=== PATIENT | female | born 1940 | race Caucasian/White ===

== ENCOUNTER → 2023-04-10 15:48 | Outpatient (REF) | payer MEDICARE, OTHER, SELFPAY | LOC: DHCBS MAIN 15:48 | PROVIDERS: ATTENDING PHYSICIAN Internal Medicine Cardiovascular Disease; FAMILY PHYSICIAN Family Medicine | DX: I35.0 Nonrheumatic aortic (valve) stenosis (principal) | CPT/HCPCS: 93306 ==

== ENCOUNTER → 2023-04-24 09:23 | Outpatient (REF) | payer MEDICARE, OTHER, SELFPAY ==
[2023-04-24 10:34] LABS: % Basophils 0.6 % (0-2); % Eosinophils 2.4 % (0-6); % Immature Granulocytes 0.5 % (0-0.5); % Lymphocytes 23.8 % (20.5-51.1); % Monocytes 9.9 % (1.7-9.3); % Neutrophils 62.8 % (42.2-75.2); Absolute Eosinophils 0.2 10^3/uL (0-0.7); Absolute Lymphocytes 1.5 10^3/uL (1.2-3.4); Absolute Monocytes 0.6 10^3/uL (0.1-0.6); Absolute Neutrophils 3.9 10^3/uL (1.4-6.5); Hematocrit 40.4 % (37.0-47.0); Hemoglobin 12.9 g/dL (12.0-16.0); Mean Corp Hgb Conc. 31.9 g/dL (33.0-37.0); Mean Corpuscular Volume 84.5 fL (81.0-99.0); Mean Platelet Volume 9.8 fL (7.4-10.4); Nucleated Red Blood Cells % 0 %; Platelet Count 194 10^3/uL (130-400); Red Blood Cell Count 4.78 10^6/uL (4.20-5.40); Red Cell Dist. Width 14.9 % (11.5-14.5); White Blood Cell Count 6.3 10^3/uL (4.8-10.8)
[2023-04-24 11:00] LABS: Protein/creatinine Ratio 3.3; Urine Protein 194 mg/dl
[2023-04-24 11:14] LABS: ALT (SGPT) 18 U/L (0-35); AST (SGOT) 26 U/L (14-36); Albumin 3.3 g/dl (3.5-5.0); Alkaline Phosphatase 105 U/L (38-126); Blood Urea Nitrogen 42 mg/dl (7-17); Calcium 9.6 mg/dl (8.4-10.2); Carbon Dioxide 23 mmol/L (22-30); Chloride 104 mmol/L (98-107); Glucose 122 mg/dl (70-99); Magnesium 2.3 mg/dl (1.6-2.3); Potassium 3.9 mmol/L (3.5-5.1); Sodium 137 mmol/L (135-145); Total Bilirubin 0.6 mg/dl (0.2-1.3); Total Protein 6.2 g/dl (6.3-8.2); eGFR 20.96
[2023-04-26 07:43] LABS: Tacrolimus (Prograft - FK506) 3.4 ng/mL
== END ==
LOC: REG 09:23
PROVIDERS: ATTENDING PHYSICIAN Transplant Surgery; FAMILY PHYSICIAN Family Medicine
DX: Z94.0 Kidney transplant status (principal); Z79.60 Long term (current) use of unspecified immunomodulators and immunosuppressants; Z29.89 Encounter for other specified prophylactic measures
CPT/HCPCS: 36415; 80053; 80197; 82570; 83735; 84156; 85025

== ENCOUNTER 2023-05-02 13:01 | Outpatient (RCR) | payer MEDICARE, OTHER, SELFPAY | END 2023-05-02 23:59 | disposition home or self-care (01) | LOC: RPT 13:01 | PROVIDERS: ATTENDING PHYSICIAN Family Medicine | DX: R26.89 Other abnormalities of gait and mobility (principal); Z73.6 Limitation of activities due to disability | CPT/HCPCS: 97110; 97112; 97162 ==

== ENCOUNTER → 2023-05-07 10:00 | Outpatient (REF) | payer MEDICARE, OTHER, SELFPAY ==
[2023-05-07 11:55] LABS: Blood Urea Nitrogen 26 mg/dl (7-17); Calcium 9.5 mg/dl (8.4-10.2); Carbon Dioxide 26 mmol/L (22-30); Chloride 107 mmol/L (98-107); Glucose 100 mg/dl (70-99); Potassium 4.6 mmol/L (3.5-5.1); Sodium 137 mmol/L (135-145); eGFR 28.13
== END ==
LOC: REG 10:00
PROVIDERS: ATTENDING PHYSICIAN Specialist
DX: R79.89 Other specified abnormal findings of blood chemistry (principal)
CPT/HCPCS: 36415; 80048

== ENCOUNTER 2023-05-21 12:52 | Outpatient (RCR) | payer MEDICARE, OTHER, SELFPAY | END 2023-05-21 23:59 | disposition home or self-care (01) | LOC: RPT 12:52 | PROVIDERS: ATTENDING PHYSICIAN Family Medicine | DX: R26.89 Other abnormalities of gait and mobility (principal); Z73.6 Limitation of activities due to disability | CPT/HCPCS: 97110; 97112 ==

== ENCOUNTER → 2023-05-30 09:49 | Outpatient (REF) | payer MEDICARE, OTHER, SELFPAY ==
[2023-05-30 12:16] LABS: Glycohemoglobin (HgbA1c) 7.1 % (4.0-5.6)
[2023-05-30 12:18] LABS: TSH 4.09 uIU/ml (0.47-4.68)
[2023-05-30 13:54] LABS: ALT (SGPT) 21 U/L (0-35); AST (SGOT) 25 U/L (14-36); Albumin 3.8 g/dl (3.5-5.0); Alkaline Phosphatase 143 U/L (38-126); Blood Urea Nitrogen 32 mg/dl (7-17); Calcium 10.2 mg/dl (8.4-10.2); Carbon Dioxide 21 mmol/L (22-30); Chloride 104 mmol/L (98-107); Glucose 118 mg/dl (70-99); HDL Cholesterol 55 mg/dl; LDL Cholesterol, Calculated 52 mg/dl; Potassium 4.1 mmol/L (3.5-5.1); Sodium 136 mmol/L (135-145); Total Bilirubin 0.4 mg/dl (0.2-1.3); Total Cholesterol 131 mg/dl (50-199); Total Protein 6.8 g/dl (6.3-8.2); Triglyceride 123 mg/dl (10-149); Very Low Density Lipoprotein 24 mg/dl (0-30); eGFR 30.13
== END ==
LOC: REG 09:49
PROVIDERS: ATTENDING PHYSICIAN Internal Medicine Endocrinology, Diabetes & Metabolism; FAMILY PHYSICIAN Family Medicine; REFERRING PHYSICIAN Specialist
DX: I10 Essential (primary) hypertension (principal); E78.2 Mixed hyperlipidemia; R80.9 Proteinuria, unspecified; D50.9 Iron deficiency anemia, unspecified; R79.89 Other specified abnormal findings of blood chemistry; E11.9 Type 2 diabetes mellitus without complications; Z79.4 Long term (current) use of insulin
CPT/HCPCS: 36415; 80053; 80061; 83036; 84443

== ENCOUNTER → 2023-07-03 09:25 | Outpatient (REF) | payer MEDICARE, OTHER, SELFPAY ==
[2023-07-03 10:16] LABS: % Basophils 0.4 % (0-2); % Eosinophils 0.7 % (0-6); % Immature Granulocytes 0.5 % (0-0.5); % Lymphocytes 23.7 % (20.5-51.1); % Monocytes 10.7 % (1.7-9.3); Absolute Eosinophils 0.1 10^3/uL (0-0.7); Absolute Monocytes 0.9 10^3/uL (0.1-0.6); Absolute Neutrophils 5.3 10^3/uL (1.4-6.5); Hematocrit 39.8 % (37.0-47.0); Hemoglobin 12.8 g/dL (12.0-16.0); Mean Corp Hgb Conc. 32.2 g/dL (33.0-37.0); Mean Corpuscular Hgb 27.2 pg (27.0-31.0); Mean Corpuscular Volume 84.7 fL (81.0-99.0); Mean Platelet Volume 9.9 fL (7.4-10.4); Nucleated Red Blood Cells % 0 %; Platelet Count 200 10^3/uL (130-400); Red Cell Dist. Width 14.8 % (11.5-14.5); White Blood Cell Count 8.2 10^3/uL (4.8-10.8)
[2023-07-03 10:34] LABS: ALT (SGPT) 15 U/L (0-35); AST (SGOT) 22 U/L (14-36); Albumin 3.7 g/dl (3.5-5.0); Alkaline Phosphatase 123 U/L (38-126); Blood Urea Nitrogen 30 mg/dl (7-17); Calcium 10.3 mg/dl (8.4-10.2); Carbon Dioxide 24 mmol/L (22-30); Chloride 106 mmol/L (98-107); Glucose 90 mg/dl (70-99); Magnesium 2.1 mg/dl (1.6-2.3); Potassium 4.3 mmol/L (3.5-5.1); Sodium 137 mmol/L (135-145); Total Bilirubin 0.6 mg/dl (0.2-1.3); Total Protein 6.6 g/dl (6.3-8.2); eGFR 26.36
[2023-07-03 10:47] LABS: Protein/creatinine Ratio 2.9; Urine Protein 179 mg/dl
[2023-07-05 02:16] LABS: Tacrolimus (Prograft - FK506) 3.9 ng/mL
== END ==
LOC: REG 09:25
PROVIDERS: ATTENDING PHYSICIAN Transplant Surgery; FAMILY PHYSICIAN Family Medicine
DX: Z94.0 Kidney transplant status (principal); Z79.60 Long term (current) use of unspecified immunomodulators and immunosuppressants; Z29.89 Encounter for other specified prophylactic measures
CPT/HCPCS: 36415; 80053; 80197; 82570; 83735; 84156; 85025

== ENCOUNTER → 2023-07-05 07:46 | Outpatient (REF) | payer MEDICARE, OTHER, SELFPAY | LOC: DHCBC/DCA 07:46 | PROVIDERS: ATTENDING PHYSICIAN Internal Medicine Cardiovascular Disease; FAMILY PHYSICIAN Family Medicine | DX: R06.02 Shortness of breath (principal); Z94.0 Kidney transplant status | CPT/HCPCS: 78452; 93017; A9500; J2785 ==

== ENCOUNTER → 2024-01-07 10:51 | Outpatient (REF) | payer MEDICARE, OTHER, SELFPAY | LOC: DHVS 10:51 | PROVIDERS: ATTENDING PHYSICIAN Surgery Vascular Surgery; FAMILY PHYSICIAN Family Medicine | DX: I73.9 Peripheral vascular disease, unspecified (principal) | CPT/HCPCS: 93922; 93925 ==

== ENCOUNTER → 2024-02-20 14:00 | Outpatient (REF) | payer MEDICARE, OTHER, SELFPAY ==
[2024-02-20 14:46] LABS: Urine Albumin 1+ (Neg - Trace); Urine Bilirubin Negative (Negative); Urine Character Very Cloudy (Clear); Urine Color Yellow; Urine Glucose 3+ (Negative); Urine Ketone Negative (Negative); Urine Leukocyte 2+ (Negative); Urine Nitrite Positive (Negative); Urine Occult Blood 3+ (Negative); Urine Specific Gravity 1.015 (<1.030); Urine Urobilinogen Negative (Neg - 1+)
[2024-02-20 15:23] LABS: Urine Urothelial Cell 0-2 /LPF (FEW)
[2024-02-20 15:24] LABS: Urine Bacteria Many (Negative); Urine White Cell >100 /HPF (0-5)
== END ==
LOC: REG 14:00
PROVIDERS: ATTENDING PHYSICIAN Family Medicine
DX: N30.90 Cystitis, unspecified without hematuria (principal)
CPT/HCPCS: 81003; 81015; 87086; 87088; 87186

== ENCOUNTER → 2024-03-18 16:17 | Outpatient (REF) | payer MEDICARE, OTHER, SELFPAY ==
[2024-03-18 18:07] LABS: Urine Albumin 2+ (Neg - Trace); Urine Bilirubin Negative (Negative); Urine Character Very Cloudy (Clear); Urine Color Yellow; Urine Glucose 3+ (Negative); Urine Ketone Negative (Negative); Urine Leukocyte 2+ (Negative); Urine Nitrite Positive (Negative); Urine Occult Blood 3+ (Negative); Urine Specific Gravity 1.015 (<1.030); Urine Urobilinogen Negative (Neg - 1+)
[2024-03-18 18:16] LABS: Urine Bacteria Few (Negative); Urine Red Blood Cell 0-2 /HPF (0-2); Urine Squamous Cell 0-2 /LPF (Few); Urine White Cell 50-60 /HPF (0-5)
== END ==
LOC: RAD 16:17
PROVIDERS: ATTENDING PHYSICIAN Family Medicine
DX: N30.90 Cystitis, unspecified without hematuria (principal)
CPT/HCPCS: 81003; 81015; 87077; 87086; 87186

== ENCOUNTER → 2024-04-15 11:01 | Outpatient (REF) | payer MEDICARE, OTHER, SELFPAY ==
[2024-04-15 12:33] LABS: ALT (SGPT) 15 U/L (0-35); AST (SGOT) 31 U/L (14-36); Albumin 3.6 g/dl (3.5-5.0); Alkaline Phosphatase 119 U/L (38-126); Blood Urea Nitrogen 29 mg/dl (7-17); Calcium 9.9 mg/dl (8.4-10.2); Carbon Dioxide 24 mmol/L (22-30); Chloride 106 mmol/L (98-107); Glucose 114 mg/dl (70-99); Potassium 4.9 mmol/L (3.5-5.1); Sodium 138 mmol/L (135-145); Total Bilirubin 0.6 mg/dl (0.2-1.3); Total Cholesterol 131 mg/dl (50-199); Total Protein 6.5 g/dl (6.3-8.2); Triglyceride 122 mg/dl (10-149); Very Low Density Lipoprotein 24 mg/dl (0-30); eGFR 29.94
[2024-04-15 12:46] LABS: Glycohemoglobin (HgbA1c) 6.8 % (4.0-5.6)
[2024-04-15 15:33] LABS: HDL Cholesterol 47 mg/dl; LDL Cholesterol, Calculated 60 mg/dl
== END ==
LOC: REG 11:01
PROVIDERS: ATTENDING PHYSICIAN Internal Medicine Endocrinology, Diabetes & Metabolism; FAMILY PHYSICIAN Family Medicine
DX: E11.9 Type 2 diabetes mellitus without complications (principal); Z79.4 Long term (current) use of insulin; E78.5 Hyperlipidemia, unspecified
CPT/HCPCS: 36415; 80053; 80061; 83036

== ENCOUNTER → 2024-05-06 14:07 | Outpatient (REF) | payer MEDICARE, OTHER, SELFPAY | LOC: RAD 14:07 | PROVIDERS: ATTENDING PHYSICIAN Family Medicine | DX: M54.6 Pain in thoracic spine (principal); R05.1 Acute cough | CPT/HCPCS: 71046; 72072 ==

== ENCOUNTER → 2024-06-02 15:02 | Outpatient (REF) | payer MEDICARE, OTHER, SELFPAY | LOC: RAD 15:02 | PROVIDERS: ATTENDING PHYSICIAN Family Medicine; FAMILY PHYSICIAN Family Medicine | DX: M54.6 Pain in thoracic spine (principal) | CPT/HCPCS: 71046; 72072 ==

== ENCOUNTER → 2024-07-05 10:47 | Outpatient (REF) | payer MEDICARE, OTHER, SELFPAY ==
[2024-07-05 12:04] LABS: % Basophils 0.6 % (0-2); % Eosinophils 0.2 % (0-6); % Immature Granulocytes 1.6 % (0-0.5); % Lymphocytes 13.9 % (20.5-51.1); % Monocytes 8.3 % (1.7-9.3); % Neutrophils 75.4 % (42.2-75.2); Absolute Basophils 0.1 10^3/uL (0-0.2); Absolute Immature Granulocytes 0.1 10^3/uL (0-0.05); Absolute Lymphocytes 1.2 10^3/uL (1.2-3.4); Absolute Monocytes 0.7 10^3/uL (0.1-0.6); Absolute Neutrophils 6.3 10^3/uL (1.4-6.5); Hematocrit 33.5 % (37.0-47.0); Hemoglobin 10.9 g/dL (12.0-16.0); Mean Corp Hgb Conc. 32.5 g/dL (33.0-37.0); Mean Corpuscular Volume 83.1 fL (81.0-99.0); Mean Platelet Volume 9.9 fL (7.4-10.4); Nucleated Red Blood Cells % 0 %; Platelet Count 210 10^3/uL (130-400); Red Blood Cell Count 4.03 10^6/uL (4.20-5.40); Red Cell Dist. Width 15.8 % (11.5-14.5); White Blood Cell Count 8.3 10^3/uL (4.8-10.8)
[2024-07-05 14:03] LABS: Erythrocyte Sed Rate 47 mm/hour (0-20)
[2024-07-07 13:32] LABS: Rheumatoid Agglutinin Less Than 10 IU (<10 IU)
[2024-07-07 17:53] LABS: ANA, IgG Reflex to HEp-2 None Detected (None Detected)
== END ==
LOC: REG 10:47
PROVIDERS: ATTENDING PHYSICIAN Family Medicine
DX: M25.50 Pain in unspecified joint (principal); I10 Essential (primary) hypertension
CPT/HCPCS: 36415; 85025; 85652; 86038; 86140; 86430

== ENCOUNTER → 2024-07-08 09:33 | Outpatient (REF) | payer MEDICARE, OTHER, SELFPAY | LOC: HWRAD 09:33 | PROVIDERS: ATTENDING PHYSICIAN Psychiatry & Neurology Neurology; FAMILY PHYSICIAN Family Medicine | DX: M54.14 Radiculopathy, thoracic region (principal); M54.16 Radiculopathy, lumbar region; M54.12 Radiculopathy, cervical region | CPT/HCPCS: 72125; 72128; 72131 ==

== ENCOUNTER 2024-07-18 14:37 | Inpatient (IN) | payer MEDICARE, OTHER, SELFPAY ==
[2024-07-18] VITALS (7 sets, daily range): BP systolic 109–139; BP diastolic 39–73; BMI 36.3
--- NOTE | 2024-07-18 10:11 | ED.GENMED ---
History of Present Illness
General
Chief Complaint: Change in Mental Status
Source: patient, spouse and family
Exam Limitations: altered mental status
Time Seen by Provider: 07/18/24 09:56
Nursing documentation reviewed up to this point in time: agreed with
History of Present Illness
History of Present Illness:
83-year-old female with past medical history of seizures, pulmonary hypertension, CHF, CAD, hypertension hyperlipidemia, renal failure status post kidney transplant over 10 years ago, diabetes presenting to the emergency department today with
concerns of altered mental status and increased falling over the past week. Difficulty ambulating. Was put from codeine to oxycodone a week ago for chronic back pain. Also has noticed increasing edema to the left arm over the past few months.
Had a previous fistula there. Denies any specific chest pain or other specific symptoms. The son claims that she typically does crossword puzzles up until about 5 days ago and since has been very confused and difficulty doing normal daily tasks
Past History
Past History
ED Past Medical History: CAD, CHF, HTN, Hypercholesterolemia, IDDM, Seizures and Other (PAD, Chronic renal failure, PNA, Cellulitis, Gastroporesis)
ED Past Surgical History: Cardiac (Stent x1), Urological (Kidney transplant 2010) and Other (Left second toe partial amputation, Left leg Stent)
Patient has exhibited threatening behavior?: No
Social History
Tobacco: Non-smoker
Alcohol: None
Drug: None
Personal:
Living: with family
Family History
Family History: CAD
Review of Systems
Review of Systems
Allergies reviewed?: Yes
All Other Systems: ROS reviewed and negative except as documented in HPI and ROS
Phy Exam
Physical Exam
Physical Exam:
GENERAL: Alert , in no apparent distress
EYE: pupils equal and reactive
NECK: Supple, no significant adenopathy.
ENT: o/p clr, mmm.
CARDIAC: Regular rate and rhythm .
LUNGS: Clear breath sounds bilaterally, no acute respiratory distress, no wheezes/rales/rhonchi
ABDOMEN: Soft, without focal tenderness, no r/g, no cvat
NEUROLOGICAL: Alert and oriented, does seem to be somewhat confused during conversation but does know where she is the date and her own birthdate. No focal neuro deficits
SKIN: Warm and dry, skin intact.
MUSCULOSKELETAL: +2 pitting edema throughout the entire left arm from the mid bicep region distally. No redness or warmth no tendernes, +2 pitting edema to the left lower extremity from the mid thigh distally., well perfused.
PSYCH: Normal and appropriate interaction.
Course
Orders/Labs/Results
Orders:
Orders
07/18/24 10:10
EKG [Electrocardiogram (*1)] Urgent
Reason for Study: Fatigue / Weakness
CT Head W/o Iv Contrast Urgent
Comment:
Reason For Exam: AMS
Chest [CR Chest - 2 Views ] Urgent
Comment:
Reason For Exam: cough recent pna AMS
Venous Doppler Upr Ext Left [US Periph Venous UPPER Ext LT] Urgent
Comment:
Reason For Exam: left arm swelling previous dialysis
07/18/24 10:11
EKG- Treatment ONCE
07/18/24 10:27
Complete Blood Count/With Diff Urgent
07/18/24 12:16
Urinalysis Reflex To Culture Urgent
Date Specimen was Collected: 07/18/24
Time Specimen was Collected: 12:13
Urine Microscopic Reflex Cult Urgent
Urine Culture Urgent
JA Source: U
Specimen Description:
Date Specimen was Collected: 07/18/24
Time Specimen was Collected: 12:13
07/18/24 12:54
Comprehensive Metabolic Panel Urgent
TSH Reflex To Free T4 Urgent
Troponin I Urgent
07/18/24 13:20
Heparin 7,800 units IV NOW STA
Nursing to Place Non Medication Order As Directed
Physician Order: PTT 6 hours after initial start of Heparin infusion
07/18/24 13:29
PT/INR [Prothrombin Time] Urgent
PTT Urgent
0.9% Sodium Chloride 500 ml [Nss] 500 ml IV BOLUS
07/18/24 13:30
Heparin 76384 Units/250 ml 25,000 units in 250 ml IV PER PROTOCOL
Weight to be used for heparin protocol in kilograms (kg):: 96.9
Protocol:: DVT/PE
PTT Goal Range to be used:: PTT 73 to 111 seconds
Order type:: Initial
INITIAL Infusion Dose (UNITS/KG/hr) & then follow protocol:: 18 units/kg/hr
Infusion Dose in UNITS/hr & then follow protocol (UNITS/hr):: 1,700
INFUSION RATE in mL/hr & then follow protocol (mL/hr):: 17
For DVT/PE algorithm, re-bolus for low PTT?: Yes
PTT less than or equal to 64 seconds:: Re-bolus 80 units/kg (max 10,000units). Increase by 400 units/hr
(+ 4mL/hr)
PTT 64.1 to 72.9 seconds:: Re-bolus 40 units/kg (max 5,000 units). Increase by 200 units/hr
(+ 2mL/hr)
PTT 73 to 111 seconds:: Target Range. No change in rate.
PTT 111.1 to 130.9 seconds:: Decrease rate by 200 units/hr (- 2 mL/hr)
PTT 131 to 199.9 seconds:: HOLD for 1 hr. Then decrease by 300 units/hr (- 3mL/hr)
PTT greater than or equal to 200 seconds:: HOLD for 2 hrs & Notify Provider. Then decrease by 400 units/hr
(- 4mL/hr)
Lab follow-up:: Each change, PTT q6h until 2 consecutive are therapeutic. Then
PTT daily.
07/18/24 14:11
Admit/Transfer Patient As Directed
Co-Sign Provider:
Level of Care: Inpatient admission
Assign to:: Telemetry
Physician / Group: allie
Diagnosis: DVT
Reason for Telemetry: Chest Pain syndromes
Date to Stop Telemetry: 07/20/24
Time to Stop Telemetry: 11:00
Reason for Hospitalization: DVT
Expected length of stay greater than two midnights?: Yes
ELOS- Estimated Length of Stay in days: 3
I certify the patient meets the requirements for IP care: Yes
PRN Pain Medication Management As Directed
May give lesser potent ordered pain med per pt: Yes
preference::
Protocol:: Medication orders for pain may be administered in a
manner that supports deferring to patient preference
when the pt is:
- Requesting an ordered lesser potent pain medication.
Least to most potent pain medications are defined
as: acetaminophen < NSAID < tramadol < opioids
(morphine, oxycodone, hydromorphone).
- Requesting a lesser dose of the same medication IF
ORDERED.
- Requesting a less intrusive route of administration
if both routes are prescribed by the provider (PO <
IV).
07/18/24 14:13
Code Status As Directed
Resuscitation Status: Full Code
07/18/24 14:16
Add On- LAB Stat
Tests Added?: serum osmolaliaty
07/18/24 14:16
Add On- LAB Stat
Tests Added?: urine osmolality, urine na
07/18/24 14:25
NEPHROLOGY CONSULT Routine
Consulting Provider: Matteo Jarvis V.
Was physician already notified: Yes
07/18/24 14:29
CefTRIAXone [Rocephin] 2,000 mg IV NOW STA
07/20/24 11:00
DC Protocol for Telemetry ONCE
Abnormal Lab Results
07/18/24 07/18/24 07/18/24
10:27 12:16 12:54
MCV 80.9 L fL
(81.0-99.0)
MCH 26.6 L pg
(27.0-31.0)
MCHC 32.8 L g/dL
(33.0-37.0)
RDW 18.4 H %
(11.5-14.5)
Abs Immat Gran (auto) 0.5 H 10^3/uL
(0-0.05)
Absolute Neuts (auto) 7.1 H 10^3/uL
(1.4-6.5)
Absolute Monos (auto) 0.9 H 10^3/uL
(0.1-0.6)
Immature Gran % 4.7 H %
(0-0.5)
Lymphocytes % 18.9 L %
(20.5-51.1)
PT
APTT
Sodium 126 L mmol/L
(135-145)
BUN 50 H mg/dl
(7-17)
Creatinine 3.1 H mg/dL
(0.6-1.0)
Glucose 199 H mg/dl
(70-99)
AST 85 H U/L
(14-36)
Troponin I 0.995 H* ng/ml
Total Protein 5.4 L g/dl
(6.3-8.2)
Albumin 2.9 L g/dl
(3.5-5.0)
Ur Occult Blood Reflex 3+ A
(Negative)
Leukocyte Esterase Rfl 3+ A
(Negative)
Urine RBC 3-6 A /HPF
(0-2)
Urine WBC (Reflex) >100 A /HPF
(0-5)
Urine Bacteria (Reflex) Many A
(Negative)
Urine Albumin (Reflex) 3+ A
(Neg - Trace)
07/18/24
13:29
MCV
MCH
MCHC
RDW
Abs Immat Gran (auto)
Absolute Neuts (auto)
Absolute Monos (auto)
Immature Gran %
Lymphocytes %
PT 14.9 H Sec
(11.4-14.6)
APTT 35.3 H Sec
(23.4-35.0)
Sodium
BUN
Creatinine
Glucose
AST
Troponin I
Total Protein
Albumin
Ur Occult Blood Reflex
Leukocyte Esterase Rfl
Urine RBC
Urine WBC (Reflex)
Urine Bacteria (Reflex)
Urine Albumin (Reflex)
07/18/24 10:27
07/18/24 12:54
Vital Signs
Initial and Last Documented VS:
Initial Vital Signs
Temp Pulse Resp BP Pulse Ox
98.7 F 101 18 111/53 92
07/18/24 08:59 07/18/24 08:59 07/18/24 08:59 07/18/24 08:59 07/18/24 08:59
Last Documented Vital Signs
Temp Pulse Resp BP Pulse Ox
98.7 F 88 18 109/47 87
07/18/24 08:59 07/18/24 11:18 07/18/24 11:18 07/18/24 11:18 07/18/24 11:18
MDM/Problems Addressed
MDM/Problems Addressed:
83-year-old female presenting to the emergency department today with concerns of altered mental status confusion weakness over the past week or so. On arrival was initially mildly tachycardic but not during my assessment other vital signs are
normal. Patient no distress but does seem somewhat confused. Denies any specific pain at this point but does have swelling to the left arm which is new. She does have chronic swelling to the left leg for many years. Denies any changes to the
left leg. Patient is not anticoagulated. Here ultrasound was performed the left arm concerning it swelling was found to have thrombus and potential mass that may be leading to the thrombus. Was started on heparin. Unable to get CT PE considering
patient had significant renal dysfunction on labs. Plan to admit on heparin for further consultation and assessment. Troponin was elevated to 0.995. EKG did not seem to consistent with ACS no specific chest pain could be secondary to clot versus
renal function issues. Plan to trend with admission. Otherwise urine potentially infected started on antibiotics.
*Critical Care Note
Total Time (30-74mins, 75-104mins- exclusive of procedures): Not Applicable
ED Attending Note
-
Portions of this chart may have been created with voice recognition software.� Occasional wrong word or��sound alike� substitutions may have occurred due to the inherent limitations of voice recognition software.
Discharge Plan
Departure
Patient Disposition: Admit
Date of Disposition: 07/18/24
Time of Disposition: 14:30
Admit to: Med/Surg
Admit to doctor: Allie
Presentation/result/management discussed w/ accepting MD/DO: Hospitalist
Patient with high blood pressure during this ER visit?: No
Condition: Fair
Covid-19: Not Applicable
Discharge Problem:
Acute deep vein thrombosis of left upper extremity, Acute UTI, MAURO (acute kidney injury)
Prescriptions:
No Action
ezetimibe 10 MG tablet
10 mg PO DAILY
aspirin 81 MG tablet,delayed release (DR/EC)
81 mg PO DAILY
gabapentin 100 MG capsule
100 mg PO TID
ferrous sulfate [FeroSul] 325 MG tablet
325 mg PO DAILY
atenolol 50 mg tablet
100 mg PO DAILY
mycophenolate sodium [Myfortic] 180 mg Tablet,Delayed Release (Dr/Ec)
360 mg PO BID
atenolol 25 MG tablet
50 mg PO QPM
atorvastatin 10 MG tablet
10 mg PO HS
insulin aspart U-100 [Novolog FlexPen U-100 Insulin] 300 UNITS/3 ML insulin pen
7 - 9 sliding scale dose SC AC
losartan 50 mg Tablet
50 mg PO DAILY
latanoprost 0.005 % Drops
1 drp BOTH EYES HS
tacrolimus [Prograf] 1 mg Capsule
2 mg PO DAILY
tacrolimus [Prograf] 1 mg Capsule
1 mg PO QPM
Align (B.infantis) 4 mg Capsule
4 mg PO DAILY
amlodipine 10 MG tablet
5 mg PO DAILY
oxycodone 5 mg Tablet
5 mg PO Q4HPRN PRN (Reason: severe pain)
insulin degludec [Tresiba FlexTouch U-100] 100 unit/mL (3 mL) Insulin Pen
13 unit SC BID
Referrals:
Chris Salcido MD [Family Provider] -
Interventions
Interventions:
*Risk Screen - Suicide Last Done: 07/18/24 08:59
*General Assessment Last Done: 07/18/24 08:59
*Neglect/Abuse Screening Last Done: 07/18/24 08:59
ED-Musculoskeletal Assessment Last Done: 07/18/24 10:25
ED- Neurological Assessment Last Done: 07/18/24 10:25
ED-Skin Assessment Last Done: 07/18/24 10:25
ED Swallowing Screen Last Done: 07/18/24 14:09
Discharge Date and Time
Print Language: BRAZILIAN
[2024-07-18 10:38] LABS: % Basophils 0.8 % (0-2); % Eosinophils 0.3 % (0-6); % Immature Granulocytes 4.7 % (0-0.5); % Lymphocytes 18.9 % (20.5-51.1); % Monocytes 8.5 % (1.7-9.3); % Neutrophils 66.8 % (42.2-75.2); Absolute Basophils 0.1 10^3/uL (0-0.2); Absolute Immature Granulocytes 0.5 10^3/uL (0-0.05); Absolute Monocytes 0.9 10^3/uL (0.1-0.6); Absolute Neutrophils 7.1 10^3/uL (1.4-6.5); Hemoglobin 12.8 g/dL (12.0-16.0); Mean Corp Hgb Conc. 32.8 g/dL (33.0-37.0); Mean Corpuscular Hgb 26.6 pg (27.0-31.0); Mean Corpuscular Volume 80.9 fL (81.0-99.0); Mean Platelet Volume 9.8 fL (7.4-10.4); Nucleated Red Blood Cells % 0.3 %; Platelet Count 130 10^3/uL (130-400); Red Blood Cell Count 4.82 10^6/uL (4.20-5.40); Red Cell Dist. Width 18.4 % (11.5-14.5); White Blood Cell Count 10.6 10^3/uL (4.8-10.8)
--- NOTE | 2024-07-18 12:06 | PHANOTE ---
med rec note- due to patient change in mental status, and spouse in room, but unable to confirm medication do to they forgot the home list. Spouse explain patient md office is up to date, used ecw untill spouse goes home to make a list of
medications
[2024-07-18 13:14] LABS: ALT (SGPT) 13 U/L (0-35); AST (SGOT) 85 U/L (14-36); Albumin 2.9 g/dl (3.5-5.0); Alkaline Phosphatase 120 U/L (38-126); Blood Urea Nitrogen 50 mg/dl (7-17); Calcium 10.1 mg/dl (8.4-10.2); Carbon Dioxide 23 mmol/L (22-30); Chloride 98 mmol/L (98-107); Glucose 199 mg/dl (70-99); Potassium 4.9 mmol/L (3.5-5.1); Sodium 126 mmol/L (135-145); Total Bilirubin 0.9 mg/dl (0.2-1.3); Total Protein 5.4 g/dl (6.3-8.2); eGFR 14.56
[2024-07-18 13:24] LABS: Urine Albumin 3+ (Neg - Trace); Urine Bilirubin Negative (Negative); Urine Character Slightly Cloudy (Clear); Urine Color Yellow; Urine Glucose Negative (Negative); Urine Ketone Negative (Negative); Urine Leukocyte 3+ (Negative); Urine Nitrite Negative (Negative); Urine Occult Blood 3+ (Negative); Urine Urobilinogen Negative (Neg - 1+)
[2024-07-18 13:30] LABS: Troponin I 0.995 ng/ml
--- NOTE | 2024-07-18 13:37 | HPS.HSE ---
Family Physician
-
Family Physician: Chris Salcido
Chief Complaint
-
sob
History of Present Illness
83-year-old female with past medical history of seizures, pulmonary hypertension, CHF, CAD, hypertension hyperlipidemia, renal failure status post kidney transplant over 10 years ago, diabetes presenting to the emergency department today with
concerns of altered mental status and increased falling over the past week. Difficulty ambulating. patient was diagnosed with pneumonia in April. she was coughing since then, which gave her back pain. she is on oxycodone since then. since
Sunday, she progressively got confused. she was progressively got weaker and was not ambulating. she was off balance and was falling. patient stated sob with exertion. she was noted have left UA swollen. denied HANSEN,dizzy or syncope.denied fever,
chills, chest pain.denied abdominal pain,n,v,d. denied dysuria or hematuria.
Arrival patient was noted hypoxic requiring 2 L of oxygen. Duplex of left arm In the left lower neck and upper chest wall, there is a large mass with internal color flow, highly suspicious for neoplasia. Further evaluation with CT of the neck and
chest is recommended.Examination is positive for occlusive thrombus involving the left subclavian and axillary veins.
patient started on heparin drip. admitting for further management.
Medical History
Past Medical History
Past Medical History: Reports Other
Additional Past Medical History:
Hyperlipidemia, A-fib, type 2 diabetes, coronary artery disease, peripheral artery disease, gastroparesis, diastolic heart failure, pulmonary hypertension, hypertension, fatty liver, iron deficiency anemia, diabetes, obstructive sleep apnea, aortic
valve stenosis, hyperparathyroidism,
Past Surgical History: Reports Other
Additional Past Surgical History:
Left aVF, bilateral cataracts, left second toe partial amputation, kidney transplant, left lower extremity angioplasty/stent, tubular basal cell excision, Mohs surgery,
Social History
Tobacco: Non-smoker
Alcohol: None
Drug: None
Personal:
Living: With Family
Family History
Family History: Not pertinent
Allergies / Home Medications
Allergies reflects when Allergies were last updated in [facility] [employer].
Home Medications with original date entered in [facility] [facility]
Allergy/Medication List:
Allergies
Allergy/AdvReac Type Severity Reaction Status Date / Time
FRED Inhibitors Allergy COUGH Verified 07/18/24 08:58
[Fred Inhibitors]
levofloxacin [From Levaquin] Allergy IV Verified 07/18/24 08:58
levaquin-Itching
Penicillins Allergy Rash Verified 07/18/24 08:58
shellfish derived Allergy SHRIMP/CRAB Verified 07/18/24 08:58
DIARRHEA
IMMEDIATE
Home Medications
aspirin 81 mg tablet,delayed release 81 mg PO DAILY Blood clot prevention/tx 07/03/14
ezetimibe 10 mg tablet 10 mg PO DAILY High cholesterol 07/03/14
ferrous sulfate 325 mg (65 mg iron) tablet (FeroSul) 325 mg PO DAILY Supplement 07/20/17
gabapentin 100 mg capsule 100 mg PO TID Pain 07/20/17
atenolol 25 mg tablet 50 mg PO QPM Blood pressure 03/03/22
atenolol 50 mg tablet 100 mg PO DAILY Blood pressure 03/03/22
mycophenolate sodium 180 mg tablet,delayed release (Myfortic) 360 mg PO BID Transplant 03/03/22
atorvastatin 10 mg tablet 10 mg PO HS High cholesterol 03/04/22
insulin aspart U-100 100 unit/mL (3 mL) subcutaneous pen (Novolog FlexPen U-100 Insulin aspart) 7 - 9 sliding scale dose SC AC Diabetes 03/05/22
Bifidobacterium infantis 4 mg capsule (Align (B.infantis)) 4 mg PO DAILY 07/18/24
amlodipine 10 mg tablet 5 mg PO DAILY 07/18/24
insulin degludec 100 unit/mL (3 mL) subcutaneous pen (Tresiba FlexTouch U-100 insulin) 13 unit SC BID 07/18/24
latanoprost 0.005 % eye drops 1 drp BOTH EYES HS 07/18/24
losartan 50 mg tablet 50 mg PO DAILY 07/18/24
oxycodone 5 mg tablet 5 mg PO Q4HPRN PRN severe pain 07/18/24
tacrolimus 1 mg capsule, immediate-release (Prograf) 1 mg PO QPM 07/18/24
tacrolimus 1 mg capsule, immediate-release (Prograf) 2 mg PO DAILY 07/18/24
Review of Systems
-
Constitutional: Reports No Symptoms
EENT: Reports No Symptoms
Respiratory: Reports Trouble Breathing
Cardiac: Reports No Symptoms
Abdomen/GI: Reports No Symptoms
: Reports No Symptoms
Musculoskeletal: Reports No Symptoms
Skin: Reports No Symptoms
Neurological: Reports Weakness
Endocrine: Reports No Symptoms
Hematologic/Lymphatic: Reports No Symptoms
Psych: Reports Other (Confusion)
Physical Exam
Vital Signs
Vital Signs
Temp Pulse Resp BP Pulse Ox
98.7 F 88 18 109/47 87
07/18/24 08:59 07/18/24 11:18 07/18/24 11:18 07/18/24 11:18 07/18/24 11:18
Physical Exam
General: Well Developed, Well Nourished and No Apparent Distress
HEENT: NormoCephalic, Moist mucous membranes and Atraumatic
Respiratory: Clear
Cardiac: S1/S2 and Regular Rhythm; No Murmur or Rub
GI: Soft, Non Tender, Non Distended and Normal Bowel Sounds; No Organomegaly
Rectal: Deferred by Provider
Musculoskeletal: No Clubbing, No Cyanosis and Other (Left upper arm and lower extremity swelling)
Skin: No Rash
Neuro: Nonfocal/grossly intact
Laboratory Results
-
07/18/24 10:27
07/18/24 12:54
Laboratory Results
Total Bilirubin 0.9 mg/dl (0.2-1.3) 07/18/24 12:54
AST 85 U/L (14-36) H 07/18/24 12:54
ALT 13 U/L (0-35) 07/18/24 12:54
Alkaline Phosphatase 120 U/L (38-126) 07/18/24 12:54
Troponin I 0.995 ng/ml H* 07/18/24 12:54
Data Reviewed
-
Diagnostic Radiology: Report Reviewed by me
CT Scan: Report Reviewed by me
Lab Data: Labs Reviewed by me
Impression/Plan
-
# Left arm thrombus/mass in the lateral neck/shoulder
- CT with impression of in the left lower neck and upper chest wall, there is a large mass with internal color flow, highly suspicious for neoplasia. Further evaluation with CT of the neck and chest is recommended.Examination is positive for
occlusive thrombus involving the left subclavian and axillary veins.
- Initiated on heparin
- CT neck held due to diabetic nephropathy
#SOB/acute hypoxia concern for concomitant PE
- Chest x-ray with impression of small effusion versus focus of airspace consolidation within one of the posterior lower lobes on the lateral view.Prominent appearance of the pulmonary arteries suggestive of pulmonary artery hypertension.
- CT PE held due to diabetic nephropathy
- On heparin drip
- Continue supplemental oxygen to keep sat greater than 95
- Wean as tolerated
#metabolic encephalopathy unclear cause
-no signs of infection noted
-ctm
#ambulatory dysfunction/frequent falls
=-PT/OT consulted
#acute hyponatremia/mauro on CKD stage 3b concern for
-na 126, cr 3.1
- Initiated patient on normal saline
- Obtain urine sodium, osmolality, serum osmolality
- Nephrology consulted
# Elevated troponin-NSTEMI
- Trop 0.995
- EKG with normal sinus rhythm
- Patient denied chest pain
- Continue to trend Trope
#Diabetic nephropathy s/p transplant
- continue Sirolimus/MMF
#IDDM
- continue sliding scale, Tresiba continued
-CHO diet
#chronic diastolic congestive heart failure
- No signs of exacerbation
# Chronic back pain
-Oxycodone continued
Essential hypertension
- Hold losartan due to MAURO
- Atenolol Norvasc continue with hold parameters
# Diabetic neuropathy
- Gabapentin continued
# Iron deficiency anemia
- Ferrous sulfate continue
#Hyperlipidemia
- Zetia, statin continued
#Obesity d/t excess calories
#Peripheral arterial disease
DVT ppx: SCDs
Code: Full
[2024-07-18 13:45] LABS: TSH Reflex To Free T4 2.37 uIU/ml (0.47-4.68)
[2024-07-18 13:47] LABS: INR 1.14; PT 14.9 Sec (11.4-14.6)
[2024-07-18 13:48] LABS: APTT 35.3 Sec (23.4-35.0)
[2024-07-18 14:11] LABS: Urine Squamous Cell >30 /LPF (Few)
[2024-07-18] MEDS: NSS 500 IV (14:11)
[2024-07-18 14:12] LABS: Urine Amorphous Seen; Urine Hyaline Cast 0-2 /LPF (0-2)
[2024-07-18] MEDS: HEPARIN 7800 UNITS IV (14:12)
[2024-07-18 14:13] LABS: Urine Bacteria Many (Negative); Urine White Cell >100 /HPF (0-5)
--- NOTE | 2024-07-18 14:14 | W.PN.UPDATE ---
Update Note
Progress Note Update
This is an addendum to the H&P written by Jaja Sanford on 07/18/2024.� Patient seen and examined independently with [employer].
83-year-old female past medical history of diabetes, diabetic nephropathy status post renal transplant, CKD 3B, chronic HFpEF, pulmonary hypertension, gastroparesis, hypertension, hyperlipidemia, obesity, peripheral arterial disease s/p bypass LLE,
chronic hyponatremia, choledocholithiasis, chronic back pain, seizure history, presenting with altered mental status, falls, difficulty ambulating and shortness of breath with exertion and back pain.� Increased edema of the left arm for few months
at site of prior fistula.� No chest pain. No infectious symptoms.�
Vital signs normal apart from mild tachycardia.� Labs show creatinine of worsening of creatinine to 3.1 from 1.7.� Sodium of 126.� Glucose 199.� Troponin 0.995.
Venous ultrasound of left upper extremity shows large mass suspicious for neoplasia in the left lower neck/upper chest wall.� There is also occlusive thrombus involving the left subclavian/axillary veins.� CT head shows no acute abnormality.��
Chest x-ray shows questionable small effusion versus foci of airspace consolidation within one of the posterior lobes of the lateral view.� Urinalysis pending.
Patient with concern for lower neck/upper chest wall malignancy with associated DVT in the left upper extremity.� High concern for pulmonary embolism.� Heparin drip started. Trend troponins.� Check echocardiogram to evaluate for RV strain.� Patient
with MAURO on CKD 3B and in the context of renal transplant, will require IV fluids and nephrology consult.� Hold nephrotoxic medications.��
Originally CT PE and CT neck with IV contrast was planned however patient cannot receive IV contrast due to kidney transplant and MAURO.� If CT scan cannot be performed with IV contrast at any time then will need CT without contrast of chest and neck
after discussion with nephrology.
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
Patient without any clear signs of infection or pneumonia or UTI.� Hold off antibiotics.
--- NOTE | 2024-07-18 14:23 | W.CON.NEPH ---
Medical History
-
Chief Complaint: Acute kidney injury/renal transplant/hyponatremia
History of Present Illness:
The patient is an 83-year-old female with a past medical history of chronic kidney disease stage IIIb maintains a baseline creatinine of 1.7 as of April 2024. She has a history of kidney transplant in, and is maintained on the combination of
mycophenolate and tacrolimus. Her hypertension has been controlled on the combination of amlodipine atenolol and losartan. She remains on insulin therapy for her diabetes. She does have a history of congestive heart failure and pulmonary
hypertension as well as underlying coronary artery disease. She presented to the emergency department today with concerns of altered mental status and increased falling over the past week. Difficulty ambulating. Patient was diagnosed with pneumonia
in April. she was coughing since then, which gave her back pain. she is on oxycodone since then. since Sunday, she progressively got confused. she was progressively got weaker and was not ambulating. she was off balance and was falling. patient
stated sob with exertion. she was noted have left UA swollen. denied HANSEN,dizzy or syncope.denied fever, chills, chest pain.denied abdominal pain,n,v,d. denied dysuria or hematuria.
Arrival patient was noted hypoxic requiring 2 L of oxygen. Duplex of left arm In the left lower neck and upper chest wall, there is a large mass with internal color flow, highly suspicious for neoplasia. Further evaluation with CT of the neck and
chest is recommended.Examination is positive for occlusive thrombus involving the left subclavian and axillary veins.
Past Medical History
Hyperlipidemia, A-fib, type 2 diabetes, coronary artery disease, peripheral artery disease, gastroparesis, diastolic heart failure, pulmonary hypertension, hypertension, fatty liver, iron deficiency anemia, diabetes, obstructive sleep apnea, aortic
valve stenosis, hyperparathyroidism,
Renal transplant
CKD 3b
Left aVF, bilateral cataracts, left second toe partial amputation, kidney transplant, left lower extremity angioplasty/stent, tubular basal cell excision, Mohs surgery,
Social History
Tobacco: Non-Smoker
Alcohol: None
Drug: None
Personal:
Family History
Family History: Not Pertinent
Allergies / Home Medications
Allergy/AdvReac Type Severity Reaction Status Date / Time
FRED Inhibitors Allergy COUGH Verified 07/18/24 08:58
[Fred Inhibitors]
levofloxacin [From Levaquin] Allergy IV Verified 07/18/24 08:58
levaquin-Itching
Penicillins Allergy Rash Verified 07/18/24 08:58
shellfish derived Allergy SHRIMP/CRAB Verified 07/18/24 08:58
DIARRHEA
IMMEDIATE
�Medication �Instructions �Recorded �Confirmed �Type
aspirin 81 mg tablet,delayed 81 mg PO DAILY Blood clot 07/03/14 07/18/24 History
release prevention/tx
ezetimibe 10 mg tablet 10 mg PO DAILY High cholesterol 07/03/14 07/18/24 History
ferrous sulfate 325 mg (65 mg 325 mg PO DAILY Supplement 07/20/17 07/18/24 History
iron) tablet (FeroSul)
gabapentin 100 mg capsule 100 mg PO TID Pain 07/20/17 07/18/24 History
atenolol 25 mg tablet 50 mg PO QPM Blood pressure 03/03/22 07/18/24 History
atenolol 50 mg tablet 100 mg PO DAILY Blood pressure 03/03/22 07/18/24 History
mycophenolate sodium 180 mg 360 mg PO BID Transplant 03/03/22 07/18/24 History
tablet,delayed release (Myfortic)
atorvastatin 10 mg tablet 10 mg PO HS High cholesterol 03/04/22 07/18/24 History
insulin aspart U-100 100 unit/mL 7 - 9 sliding scale dose SC AC 03/05/22 07/18/24 History
(3 mL) subcutaneous pen (Novolog Diabetes
FlexPen U-100 Insulin aspart)
Bifidobacterium infantis 4 mg 4 mg PO DAILY 07/18/24 07/18/24 History
capsule (Align (B.infantis))
amlodipine 10 mg tablet 5 mg PO DAILY 07/18/24 07/18/24 History
insulin degludec 100 unit/mL (3 13 unit SC BID 07/18/24 07/18/24 History
mL) subcutaneous pen (Tresiba
FlexTouch U-100 insulin)
latanoprost 0.005 % eye drops 1 drp BOTH EYES HS 07/18/24 07/18/24 History
losartan 50 mg tablet 50 mg PO DAILY 07/18/24 07/18/24 History
oxycodone 5 mg tablet 5 mg PO Q4HPRN PRN severe pain 07/18/24 07/18/24 History
tacrolimus 1 mg capsule, 1 mg PO QPM 07/18/24 07/18/24 History
immediate-release (Prograf)
tacrolimus 1 mg capsule, 2 mg PO DAILY 07/18/24 07/18/24 History
immediate-release (Prograf)
Review of Systems
-
History Source: Patient
All other systems: Negative unless noted
Constitutional: Fatigue and Other (Weakness, predominantly non ambulatory)
Respiratory: Cough
Cardiac: Chest Pain
: Frequency
Musculoskeletal: Edema (Of left upper extremity) and Other (Back pain)
Neurological: Other (Dizziness confusion falls)
Physical Exam
Vital Signs
Vital Signs
Temp Pulse Resp BP Pulse Ox
98.7 F 88 18 109/47 87
07/18/24 08:59 07/18/24 11:18 07/18/24 11:18 07/18/24 11:18 07/18/24 11:18
Lab Results
07/18/24 10:27
07/18/24 12:54
WBC 10.6 10^3/uL (4.8-10.8) 07/18/24 10:27
RBC 4.82 10^6/uL (4.20-5.40) 07/18/24 10:27
Hgb 12.8 g/dL (12.0-16.0) 07/18/24 10:27
Hct 39.0 % (37.0-47.0) 07/18/24 10:27
Plt Count 130 10^3/uL (130-400) 07/18/24 10:27
Sodium 126 mmol/L (135-145) L 07/18/24 12:54
Potassium 4.9 mmol/L (3.5-5.1) 07/18/24 12:54
Chloride 98 mmol/L (98-107) 07/18/24 12:54
Carbon Dioxide 23 mmol/L (22-30) 07/18/24 12:54
BUN 50 mg/dl (7-17) H 07/18/24 12:54
Creatinine 3.1 mg/dL (0.6-1.0) H 07/18/24 12:54
eGFR 14.56 07/18/24 12:54
Glucose 199 mg/dl (70-99) H 07/18/24 12:54
Calcium 10.1 mg/dl (8.4-10.2) 07/18/24 12:54
Albumin 2.9 g/dl (3.5-5.0) L 07/18/24 12:54
Physical Exam
General: AOx3, , NAD,obese, ill appearing
HEENT: PERRL, EOMI, Anicteric, Conjunctivae pale Ear/Nose Intact, Hearing Normal, Oropharynx Clear/Moist, Dentition Intact, Facial Symmetry, Neck Supple, Neck: Trachea Midline, No JVD and No Thyromegaly, no Bruits
Respiratory: Clear to auscultation bilaterally with normal lung exersion
Cardiac: S1/S2 and Regular Rate/Rhythm
Breast: Deferred by me
Abdomen: Soft, Nontender, Nondistended, Normal Bowel Sounds and No Hepatosplenomegaly
Rectal: Deferred by Provider
Genito-urinary: No Costovertebral Tenderness
Extremities: No Clubbing, No Cyanosis and No Edema, left upper extremity and left lower extremity swelling
Skin: No Rash or open lesions,pale,
Neuro: Nonfocal/Grossly Intact, CN II-XII (Intact) and Strength (Musculoskeletal exam 4 out of 5 both upper and lower extremities)
Hematologic/Lymphatic: No Cervical Lymphadenopathy, No Submandibular Lymphadenopathy and No Supraclavicular Lymphadenopathy
Psych: Mood/afflect pleasant, Insight/judgement good and Appropriate
Vascular: plus 1 pedal and radial pulses
Vascular Access: AVF (left upper extremity: radial weak thrill and bruit)
Data Reviewed
-
Radiology: Image Personally Visualized and interpreted (Chest x-ray personally reviewed interstitial changes noted) and Other (Doppler of left upper extremity: Large mass suspicious for neoplasm along the neck and upper chest wall: Notable occlusive
thrombus of left subclavian and axillary vein)
CT Scan: Report Reviewed by me (CT of head: no acute changes)
Medical Tests (Nuc Med, Echo etc): Other (EKG report sinus rhythm 70 bpm with right axis deviation)
Labs: Labs Reviewed by me (BMP CBC)
Old Records: Reviewed (Reviewed old lab work in electronic medical record from April 15, 2024 creatinine 1.7)
Assessment/Plan
-
Impression:
MAURO
CKD 3b (1.7)
Renal transplant
Hyponatremia with sodium of 126
Change in mental status
SOB
Neck mass
Left upper extremity DVT
History of hypertension
History of diabetes
AFIB hx
CAD/PAD
Pulmonary hypertension
Aortic valvular stenosis
Ambulatory dysfunction with frequent falls
Positive troponin
Plan:
MAURO/Hyponatremia:
-UA notes chronic 3+ blood and 3 plus albuminuria
- Suspect related to hypotension
- Maintain isotonic saline for blood pressure support in setting of acute kidney injury and hyponatremia
- Obtain urine creatinine ,urine sodium, urine osmolality
- Accurate I's and O's, check PVR bladder scan
- Follow-up tacrolimus trough level
- Holding antihypertensives in setting of hypotension
- Heparin drip for DVT
- CT with IV contrast would likely precipitate dialysis dependent renal failure in setting of acute kidney injury in CKD stage 3b
[2024-07-18] MEDS: HEPARIN 25000 UNITS/250 ML IV (14:30)
[2024-07-18 15:13] LABS: Osmolality Urine 286 mOsm/kg (300-900)
[2024-07-18 15:28] LABS: Glucose - Point of Care 170 mg/dl (70-99)
[2024-07-18 15:32] LABS: Osmolality Serum 287 mOsm/kg (275-300)
[2024-07-18] MEDS: ROCEPHIN 2000 MG IV (15:46)
[2024-07-18 16:37] LABS: Glucose - Point of Care 172 mg/dl (70-99)
--- NOTE | 2024-07-18 17:33 | PTCARENOTE ---
pt presents from ED via stretcher. pt is AAO*2, dis to place, Vss, 2L o2. pt c/o back pain chronically 07/12. pt is on hep gtt 1700 units/hr from ED. pt is oriented to the room. call nevarez within the reach. and son updated at the bedside.
[2024-07-18] MEDS: NOVOLOG FLEXPEN-LOW RESISTANCE 1 UNITS SC (17:47)
[2024-07-18] MEDS: NSS 1000 IV (17:47)
[2024-07-18] MEDS: NEURONTIN 100 MG PO (17:47)
[2024-07-18] MEDS: PROGRAF 1 MG PO (17:48)
[2024-07-18] MEDS: TENORMIN 50 MG PO (17:48)
[2024-07-18 21:24] LABS: Glucose - Point of Care 193 mg/dl (70-99)
[2024-07-18 21:34] LABS: APTT 122.8 Sec (23.4-35.0)
[2024-07-18] MEDS: XALATAN OPHTHALMIC SOLUTION BOTH EYES (21:38)
[2024-07-18] MEDS: LANTUS SC (21:38)
[2024-07-18] MEDS: LIPITOR PO (21:38)
[2024-07-18] MEDS: MYFORTIC DELAYED REL. PO (21:38)
[2024-07-18] MEDS: DESENEX/MITRAZOL/ZEASORB TOPICAL (21:38)
[2024-07-18] MEDS: NEURONTIN PO (21:39)
--- NOTE | 2024-07-18 21:40 | PTCARENOTE ---
Patient refusing all HS meds. Patient couldn't give a specific reason as to why she is refusing, just states that she wants to go home. Education provided. Will continue to monitor.
[2024-07-18 21:53] LABS: Troponin I 0.894 ng/ml
[2024-07-19 00:57] LABS: Urine Sodium 18 mmol/L (30-90)
[2024-07-19 03:50] VITALS: BP 119/57
[2024-07-19] MEDS: NSS 1000 IV ×2 (05:31→17:04)
[2024-07-19 08:18] VITALS: BP 119/73
[2024-07-19 08:19] LABS: Hematocrit 32.3 % (37.0-47.0); Hemoglobin 10.4 g/dL (12.0-16.0); Mean Corp Hgb Conc. 32.2 g/dL (33.0-37.0); Mean Corpuscular Hgb 26.9 pg (27.0-31.0); Mean Corpuscular Volume 83.5 fL (81.0-99.0); Mean Platelet Volume 10.1 fL (7.4-10.4); Platelet Count 114 10^3/uL (130-400); Red Blood Cell Count 3.87 10^6/uL (4.20-5.40); Red Cell Dist. Width 17.7 % (11.5-14.5); White Blood Cell Count 9.3 10^3/uL (4.8-10.8)
[2024-07-19 08:19] LABS: Glucose - Point of Care 149 mg/dl (70-99)
[2024-07-19 08:25] LABS: Blood Urea Nitrogen 49 mg/dl (7-17); Carbon Dioxide 21 mmol/L (22-30); Chloride 105 mmol/L (98-107); Estimated Creatinine Clearance 20 ml/min; Glucose 140 mg/dl (70-99); Potassium 4.3 mmol/L (3.5-5.1); Sodium 130 mmol/L (135-145); eGFR 18.85
[2024-07-19] MEDS: NOVOLOG FLEXPEN-LOW RESISTANCE SC (08:26)
[2024-07-19] MEDS: NORVASC 5 MG PO (08:34)
[2024-07-19] MEDS: ASPIR LOW (ENTERIC COATED) 81 MG PO (08:34)
[2024-07-19 08:35] LABS: NT-proBNP > 27000 pg/ml
[2024-07-19] MEDS: PROGRAF 2 MG PO (08:35)
[2024-07-19] MEDS: MYFORTIC DELAYED REL. 360 MG PO ×2 (08:36→21:48)
[2024-07-19] MEDS: ZETIA 10 MG PO (08:36)
[2024-07-19] MEDS: FEOSOL 325 MG PO (08:36)
[2024-07-19] MEDS: VISBIOME 1 CAP PO (08:36)
[2024-07-19 08:37] LABS: APTT > 200.0 Sec (23.4-35.0)
[2024-07-19] MEDS: TENORMIN 100 MG PO (08:37)
[2024-07-19] MEDS: NEURONTIN 100 MG PO ×3 (08:37→21:48)
[2024-07-19] MEDS: DESENEX/MITRAZOL/ZEASORB 1 APPLIC TOPICAL ×2 (08:38→21:49)
[2024-07-19 08:47] VITALS: BMI 36.3
--- NOTE | 2024-07-19 09:12 | W.PN.HOSP.TC ---
Today's Communication/Plan
-
see plan
Assessment / Plan
Assessment / Plan
Gen: NAD, AAOx3.
Eyes: EOMI, PERRLA, no scleral icterus.
Neck: supple.
CV: RRR, +S1/S2, no m/r/g.
Resp: CTAB, no rales, wheezes, or rhonchi.
Abd: +BS, soft, NT, ND
Skin: No rashes. 3+ LUE edema
Neuro: CN 2-12 intact, non-focal.
Psych: Normal mood and affect.
LUE venous U/S: In the left lower neck and upper chest wall, there is a large mass with internal color flow, highly suspicious for neoplasia. Further evaluation with CT of the neck and chest is recommended. Examination is positive for occlusive
thrombus involving the left subclavian and axillary veins.
CT head: No acute intracranial abnormality.
CXR: Questionable small effusion versus focus of airspace consolidation within one of the posterior lower lobes on the lateral view. Prominent appearance of the pulmonary arteries suggestive of pulmonary artery hypertension.
MAURO on CKD3a:
-h/o renal transplant, cont Cellcept/Prograf
-Cr improving with IVFs
L lower neck and upper chest wall mass with associated DVT:
-ideally we would check a CT chest and neck with IV contrast. Unfortunately the risk at this moment is too high with acute kidney injury in the setting of a renal transplant.
-Will discuss with nephrology but likely will need to check a noncontrast CT
-c/s IR for Bx
-cont heparin gtt
Hyponatremia:
-likely due to hypotension and possibly a component of SIADH due to likely malignancy
-Na and Cr improving with IVFs
-renal following
Elevated trop:
-denies CP
-ECG (read by me): NSR @ 70, R-axis dev, nl intervals, no acute ST/TW changes
-Trop 0.995, 0.894
-c/s cardiology
-check echo
Pyuria:
-afebrile, no leukocytosis
-currently on Rocephin
-follow UCx
Other problems:
Acute metabolic encephalopathy
Ambulatory dysfunction with frequent falls: PT/OT
DM2 with diabetic nephropathy and neuropathy: cont Lantus/SSI/accuchecks/diabetic diet. Cont neurontin.
Chronic HFpEF:
Chronic back pain, chronic opioid use with dependence: cont oxycodone
Essential hypertension: Cont Atenolol/Norvasc. ARB on hold with MAURO.
Iron deficiency anemia: cont Ferrous sulfate
Hyperlipidemia: cont Zetia/statin
Obesity due to excess calories
Peripheral arterial disease: Cont ASA/statin
FULL/heparin gtt
Total time spent on today's encounter was 50 minutes which included time spent in counseling the patient/family regarding diagnosis and treatment plan as listed above, goals of care, and symptom management. Case was discussed with nursing staff,
specialists, and care coordinators/case management. All labs and imaging personally reviewed by me. Remainder the time spent in detailed review of previous records, lab data, imaging, and other medical provider documentation.
Anticipated Discharge: > 48 hours
Subjective/Interval History
-
Date of Service: July 19, 2024
Deneis CP/SOB.
Objective Data
-
Labs:
Laboratory Results
07/18/24 07/19/24 07/19/24
21:05 07:36 07:37
WBC 9.3
Hgb 10.4 L
Hct 32.3 L
Plt Count 114 L
APTT 122.8 H > 200.0 H*
Sodium 130 L
Potassium 4.3
Chloride 105
Carbon Dioxide 21 L
BUN 49 H
Creatinine 2.5 H
Glucose 140 H
Calcium 9.0
Vital Signs:
Vital Signs
Temp Pulse Resp BP Pulse Ox
97.7 F 67 20 119/73 93
07/19/24 08:18 07/19/24 08:34 07/19/24 08:18 07/19/24 08:34 07/19/24 08:18
I&O
07/18/24 07/19/24 07/20/24
06:59 06:59 06:59
Output Total 150 / 150
Balance -150 / -150
[2024-07-19 09:14] LABS: Glycohemoglobin (HgbA1c) 7.5 % (4.0-5.6)
--- NOTE | 2024-07-19 09:57 | CM ---
Initial assessment completed. Patient is a 83-year-old female with past medical history of seizures, pulmonary hypertension, CHF, CAD, hypertension hyperlipidemia, renal failure status post kidney transplant over 10 years ago, diabetes presenting to
the emergency department today with concerns of altered mental status and increased falling over the past week. Admitted for sob. Patient currently on 2L O2.
Patient resides w/ spouse in a 2STH- 1 step to enter from the front and the garage. According to spouse, patient has been independent up until recently this year. Patient recently began using rollator to assist w/ ambulation, spouse has been
assisting patient w/ ADLs. Patient has a cane that she doesn't use, also a shower chair in the bathroom. Per spouse, patient has been incoherent sometimes and has had a couple of falls recently.
No SNF hx, OP therapy and [facility] in the past
Address, points of contact and insurance verified
PCP: Chris Salcido
Pharmacy: [facility]
PT/OT ordered, will see when able
Plan: CM will cont to follow for d/c planning
[2024-07-19] MEDS: LANTUS 0.13 UNITS SC ×2 (10:01→21:48)
[2024-07-19] MEDS: HEPARIN 25000 UNITS/250 ML IV (11:55)
--- NOTE | 2024-07-19 12:09 | W.PN.NEPH.PH ---
Today's Communication / Plan
-
Follow BMP
Maintain isotonic saline
Tacrolimus trough level
For eventual biopsy of neck lesion
Remains on heparin gtt
Assessment/Plan
-
Impression:
MAURO
CKD 3b (1.7)
Renal transplant 12 years prior
Hyponatremia with sodium of 126
Change in mental status
SOB
Neck mass
Left upper extremity DVT
History of hypertension
History of diabetes
AFIB hx
CAD/PAD
Pulmonary hypertension
Aortic valvular stenosis
Ambulatory dysfunction with frequent falls
Positive troponin
Plan:
MAURO/Hyponatremia:
-Creatinine improved to 2.5
-UA notes chronic 3+ blood and 3 plus albuminuria
- Suspect related to hypotension,bp now improving with with normal saline
- Maintain isotonic saline for blood pressure support in setting of acute kidney injury and hyponatremia
- Obtained urine creatinine ,urine sodium, urine osmolality: Fractional secretion of sodium was consistent with prerenal stimulus
- Accurate I's and O's, check PVR bladder scan
- Follow-up tacrolimus trough level pending
- Holding antihypertensives in setting of hypotension
- Heparin drip for DVT
- CT with IV contrast would likely precipitate dialysis dependent renal failure in setting of acute kidney injury in CKD stage 3b
- Maintain current immunosuppression regimen which consist of tacrolimus and mycophenolate for kidney transplant
-
-
Date of Service: July 19, 2024
CC / HPI / ROS
-
Chief Complaint:
Acute kidney injury
Renal transplant
CKD stage IIIb
History of Present Illness:
Creatinine down to 2.5 with isotonic saline
Serum sodium rising to 130 with isotonic saline
Hemodynamically more stable
Continues with mycophenolate and tacrolimus for renal transplant
Review of Systems:
No fevers
No chest pain or shortness of breath
Labs
-
Labs:
WBC 9.3 10^3/uL (4.8-10.8) 07/19/24 07:37
RBC 3.87 10^6/uL (4.20-5.40) L 07/19/24 07:37
Hgb 10.4 g/dL (12.0-16.0) L 07/19/24 07:37
Hct 32.3 % (37.0-47.0) L 07/19/24 07:37
Plt Count 114 10^3/uL (130-400) L 07/19/24 07:37
Sodium 130 mmol/L (135-145) L 07/19/24 07:36
Potassium 4.3 mmol/L (3.5-5.1) 07/19/24 07:36
Chloride 105 mmol/L (98-107) 07/19/24 07:36
Carbon Dioxide 21 mmol/L (22-30) L 07/19/24 07:36
BUN 49 mg/dl (7-17) H 07/19/24 07:36
Creatinine 2.5 mg/dL (0.6-1.0) H 07/19/24 07:36
eGFR 18.85 07/19/24 07:36
Glucose 140 mg/dl (70-99) H 07/19/24 07:36
Calcium 9.0 mg/dl (8.4-10.2) 07/19/24 07:36
Col-F-Sjkxrvdnmxt Pept > 35413 pg/ml 07/19/24 07:36
Albumin 2.9 g/dl (3.5-5.0) L 07/18/24 12:54
Physical Exam
-
Vital Signs:
Vital Signs
Temp Pulse Resp BP Pulse Ox
97.7 F 67 20 119/73 93
07/19/24 08:18 07/19/24 08:34 07/19/24 08:18 07/19/24 08:34 07/19/24 08:18
Cardiovascular:: Regular rate and rhythm
Respiratory:: Bilateral: Coarse
Lung Excursion:: Normal
Abdomen:: Nontender and Soft
Bowel Sounds:: Normal
Extremity Edema:: +2: Bilateral:
Villatoro Catheter: No
[2024-07-19 12:21] VITALS: BP 121/76
[2024-07-19 13:55] LABS: Glucose - Point of Care 218 mg/dl (70-99)
[2024-07-19] MEDS: NOVOLOG FLEXPEN-LOW RESISTANCE 2 UNITS SC ×2 (15:10→18:00)
[2024-07-19 16:12] VITALS: BP 102/52
[2024-07-19 16:45] LABS: APTT > 200 Sec (23.4-35.0)
--- NOTE | 2024-07-19 17:05 | CON.CAR ---
Consultation
Consultation Request
Date/Time Consultation Requested: 07/19/24
Date/Time Consultation Performed: 07/19/24
Requesting Provider: Dr. Guerra
Performing Provider: Dr. Brooks
Reason for Consultation: CP/elevated CTNI
Medical History
-
Chief Complaint: change in mental status
History of Present Illness:
I had the pleasure to meet Milagros who is accompanied by her and son in room 410 bed for cardiac evaluation of elevated troponin.
.
Milagros is an 83-year-old female who primarily follows with my colleague Dr. Phan. She has a significant vascular history. She has a history of coronary artery disease status post mid LAD drug-eluting stent in 2009, severe peripheral arterial
disease left lower extremity nonhealing wound status post distal toe amputation 07/2014, status post PHOTOGRAPHIC DOUBLE of distal left SFA and popliteal artery 08/2014 and left popliteal PHOTOGRAPHIC DOUBLE and stent 04/04/2017. She also has chronic kidney disease previously on
dialysis status post renal transplant in 2009 maintained on Prograf and mycophenolate followed at [facility] transplant center. She also has a history of hypertension, hyperlipidemia, type 2 diabetes mellitus with nephropathy/neuropathy, sleep
apnea, depression, obesity and deconditioning. There is also mention of an episode of postoperative atrial fibrillation without recurrence and she is not chronically anticoagulated. She is a difficult historian with history supplemented by her
. She was diagnosed with bibasilar pneumonia in May by chest x-ray for cough/back pain and treated with antibiotics. Her pneumonia symptoms did improve however her back pain has persisted and she is being followed by pain management
Liana and recently had CT imaging of the cervical, thoracic and lumbar spine. She has been having difficulty ambulating due to pain and is also noted increasing edema of her left arm; this arm had a previous dialysis fistula. She has been on
oxycodone for back pain however has noted that she has been more confused and weak with multiple falls at home. reports that since the weekend she got progressively more confused and he was unable to get her out of bed prompting him
to call EMS. Patient and family deny chest pain or pressure preceding or during this hospitalization. Fortunately her mental status has improved back to baseline per family. ER labs:creatinine was noted to be 3.1 with baseline 1.6, sodium was
initially 126, bicarb 23. Initial cardiac troponin 0.995 with second troponin 0.894, proBNP 27,000. TSH 2.37. Hemoglobin hemoglobin 12.8 on admission, currently 10.4. Platelets of 114,000. WBC 9.3. Twelve-lead EKG normal sinus rhythm with low
voltage but no acute ischemic changes. Duplex of the left arm and lower neck/upper chest wall found a large mass with internal color flow suspicious for neoplasm and recommend CT of the chest and neck. There is also occlusive thrombus involving the
left subclavian and axillary veins. She is currently on IV heparin.
PAST MEDICAL HISTORY:
1. PVD with history of left lower extremity nonhealing wound status post
distal toe amputation 07/2014, status post PHOTOGRAPHIC DOUBLE of distal left SFA and
popliteal artery 08/2014.
2. Status post left popliteal PHOTOGRAPHIC DOUBLE and stent 04/04/2017. s/p left femoral to anterior tibial bypass on 06/08/2017.
3. End-stage renal disease, previously on hemodialysis, status post renal
transplant in 2009..History of prior left AV fistula
4. Atrial fibrillation, thought to be postoperative phenomenon without known
recurrence.
5. CAD, status post mid-LAD drug-eluting stent, 2009.
6. Hypertension.
7. Hyperlipidemia.
8. Diabetes type 2 With fatty liver, peripheral neuropathy, Gastroparesis and nephropathy
9. GERD.
10.Depression.
11.Obesity.
12.Obstructive sleep apnea.
13.Multiple skin cancers
14.Choledocholithiasis, ERCP 03/04/2022.
15. Carotid artery stenosis
Past Medical History
Past Medical History: Other (See HPI)
Social History
Tobacco: Non-Smoker
Alcohol: None
Drug: None
Personal:
Living: With Family
Employment: Retired
Family History
Family History: Reviewed & Not Pertinent
Allergies / Home Medications
Allergy/AdvReac Type Severity Reaction Status Date / Time
FRED Inhibitors Allergy COUGH Verified 07/18/24 08:58
[Fred Inhibitors]
levofloxacin [From Levaquin] Allergy IV Verified 07/18/24 08:58
levaquin-Itching
Penicillins Allergy Rash Verified 07/18/24 08:58
shellfish derived Allergy SHRIMP/CRAB Verified 07/18/24 08:58
DIARRHEA
IMMEDIATE
�Medication �Instructions �Recorded �Confirmed �Type
aspirin 81 mg tablet,delayed 81 mg PO DAILY Blood clot 07/03/14 07/18/24 History
release prevention/tx
ezetimibe 10 mg tablet 10 mg PO DAILY High cholesterol 07/03/14 07/18/24 History
ferrous sulfate 325 mg (65 mg 325 mg PO DAILY Supplement 07/20/17 07/18/24 History
iron) tablet (FeroSul)
gabapentin 100 mg capsule 100 mg PO TID Pain 07/20/17 07/18/24 History
atenolol 25 mg tablet 50 mg PO QPM Blood pressure 03/03/22 07/18/24 History
atenolol 50 mg tablet 100 mg PO DAILY Blood pressure 03/03/22 07/18/24 History
mycophenolate sodium 180 mg 360 mg PO BID Transplant 03/03/22 07/18/24 History
tablet,delayed release (Myfortic)
atorvastatin 10 mg tablet 10 mg PO HS High cholesterol 03/04/22 07/18/24 History
insulin aspart U-100 100 unit/mL 7 - 9 sliding scale dose SC AC 03/05/22 07/18/24 History
(3 mL) subcutaneous pen (Novolog Diabetes
FlexPen U-100 Insulin aspart)
Bifidobacterium infantis 4 mg 4 mg PO DAILY Gastrointestinal 07/18/24 07/18/24 History
capsule (Align (B.infantis)) Issue
amlodipine 10 mg tablet 5 mg PO DAILY Blood Pressure 07/18/24 07/18/24 History
insulin degludec 100 unit/mL (3 13 unit SC BID Diabetes 07/18/24 07/18/24 History
mL) subcutaneous pen (Tresiba
FlexTouch U-100 insulin)
latanoprost 0.005 % eye drops 1 drp BOTH EYES HS Eye Condition 07/18/24 07/18/24 History
losartan 50 mg tablet 50 mg PO DAILY Blood Pressure 07/18/24 07/18/24 History
oxycodone 5 mg tablet 5 mg PO Q4HPRN PRN severe pain 07/18/24 07/18/24 History
tacrolimus 1 mg capsule, 1 mg PO QPM Transplant 07/18/24 07/18/24 History
immediate-release (Prograf)
tacrolimus 1 mg capsule, 2 mg PO DAILY Transplant 07/18/24 07/18/24 History
immediate-release (Prograf)
Review of Systems
-
History Source: Patient, Family and Coordinating Provider
All other systems: Negative unless noted
Physical Exam
Vital Signs
Temp Pulse Resp BP Pulse Ox
98.1 F 71 20 102/52 93
07/19/24 16:12 07/19/24 16:12 07/19/24 16:12 07/19/24 16:12 07/19/24 16:12
Lab Results
07/19/24 07:37
07/19/24 07:36
Troponin I 0.894 ng/ml H* 07/18/24 21:05
Bcj-K-Wxacwdzkakf Pept > 26381 pg/ml 07/19/24 07:36
Physical Exam
General: Well Developed, Well Nourished and Comfortable
HEENT: Normocephalic, Anicteric and Moist Mucous Membranes
Respiratory: Other (Bronchovesicular breath sounds decreased at the bases with scattered rhonchi)
Cardiac: S1/S2, Regular Rhythm and Peripheral Edema ( +1 bilateral lower extremity edema ); Negative Murmur or Rub
Neuro: AO x 3 and Nonfocal/Grossly Intact
Psych: Calm
Impression / Plan
-
Territory Account Representative: Dr. Patel
Impression/Plan:
Elevated troponin without chest pain with known significant vascular disease including coronary artery disease and LAD stent in 2009
- She is chest pain-free with no reports of chest pain prior to admission
-Likely related to demand ischemia
- Troponin is trending down
- EKG without ischemic changes
- She had a Lexiscan nuclear stress test July 05, 2023 which showed predominantly fixed defects in the apex consistent with infarct complicated by bowel artifact. EF was 64%.
- Discussed with patient and family with plan for medical therapy
- She is currently on IV heparin which will likely be continued given recent finding of left upper extremity DVT
- Continue aspirin 81 mg daily.
- Continue atorvastatin with ezetimibe.
- Repeat 2D echocardiogram on Sunday
Acute renal insufficiency with history of renal transplant/hyponatremia
-nephrology consulted.
Left lower neck/upper chest wall mass concerning for malignancy with associated DVT
- Patient and family are aware.
- Unable to proceed with CTA of the chest and neck due to renal insufficiency
- Being considered for IR biopsy
- IV heparin
Acute delirium likely related to narcotics and worsening renal insufficiency/dehydration
- Improved.
- CT of the head with no acute intracranial abnormality
- Antibiotics for possible infection
Data Reviewed
-
EKG: Tracing Personally Visualized and interpreted
Radiology: Report Reviewed by me
CT Scan: Report Reviewed by me
Medical Tests (Nuc Med, Echo etc): Report Reviewed by me
Labs: Labs Reviewed by me
Old Records: Reviewed
[2024-07-19] MEDS: PROGRAF 1 MG PO (17:06)
[2024-07-19] MEDS: STERILE WATER FOR INJECTION 10 ML IV (17:07)
[2024-07-19] MEDS: ROCEPHIN 1000 MG IV (17:07)
[2024-07-19 17:12] LABS: Glucose - Point of Care 219 mg/dl (70-99)
[2024-07-19] MEDS: TENORMIN PO (17:18)
[2024-07-19 19:47] VITALS: BP 116/48
[2024-07-19 21:12] LABS: Glucose - Point of Care 189 mg/dl (70-99)
[2024-07-19] MEDS: LIPITOR 10 MG PO (21:48)
[2024-07-19] MEDS: XALATAN OPHTHALMIC SOLUTION 2 DROP BOTH EYES (21:48)
[2024-07-19 23:17] VITALS: BP 124/53
[2024-07-20] VITALS (8 sets, daily range): BP systolic 91–129; BP diastolic 51–84; PULSE 64–71; O2SAT 93
[2024-07-20 03:18] LABS: APTT 44.6 Sec (23.4-35.0)
[2024-07-20] MEDS: HEPARIN 7800 UNITS IV ×2 (03:35→19:09)
[2024-07-20] MEDS: NSS 1000 IV (05:33)
[2024-07-20 07:36] LABS: Glucose - Point of Care 160 mg/dl (70-99)
[2024-07-20] MEDS: LANTUS 0.13 UNITS SC ×2 (08:00→21:52)
[2024-07-20] MEDS: NOVOLOG FLEXPEN-LOW RESISTANCE 1 UNITS SC ×2 (08:00→18:21)
[2024-07-20] MEDS: VISBIOME 1 CAP PO (08:00)
[2024-07-20] MEDS: PROGRAF 2 MG PO (08:01)
[2024-07-20] MEDS: TENORMIN 100 MG PO (08:01)
[2024-07-20] MEDS: NEURONTIN 100 MG PO ×3 (08:02→21:52)
[2024-07-20] MEDS: FEOSOL 325 MG PO (08:02)
[2024-07-20] MEDS: MYFORTIC DELAYED REL. 360 MG PO ×2 (08:02→21:52)
[2024-07-20] MEDS: ASPIR LOW (ENTERIC COATED) 81 MG PO (08:02)
[2024-07-20] MEDS: NORVASC 5 MG PO (08:02)
[2024-07-20] MEDS: ZETIA 10 MG PO (08:02)
[2024-07-20] MEDS: DESENEX/MITRAZOL/ZEASORB 1 APPLIC TOPICAL ×2 (08:03→21:53)
[2024-07-20 08:13] LABS: Hematocrit 32.3 % (37.0-47.0); Hemoglobin 10.6 g/dL (12.0-16.0); Mean Corp Hgb Conc. 32.8 g/dL (33.0-37.0); Mean Corpuscular Hgb 27.5 pg (27.0-31.0); Mean Corpuscular Volume 83.9 fL (81.0-99.0); Mean Platelet Volume 10.2 fL (7.4-10.4); Platelet Count 112 10^3/uL (130-400); Red Blood Cell Count 3.85 10^6/uL (4.20-5.40); White Blood Cell Count 8.8 10^3/uL (4.8-10.8)
[2024-07-20 10:26] LABS: APTT > 200 Sec (23.4-35.0)
[2024-07-20 11:08] LABS: Blood Urea Nitrogen 50 mg/dl (7-17); Calcium 9.8 mg/dl (8.4-10.2); Carbon Dioxide 18 mmol/L (22-30); Chloride 107 mmol/L (98-107); Estimated Creatinine Clearance 20 ml/min; Glucose 122 mg/dl (70-99); Potassium 4.7 mmol/L (3.5-5.1); Sodium 130 mmol/L (135-145); eGFR 18.85
--- NOTE | 2024-07-20 11:41 | W.PN.HOSP.TC ---
Today's Communication/Plan
-
continue IV Heparin
Non-Con CTs of neck/chest to evaluate mass - cannot have IV contrast or MRI
Echo Sunday
continue Abx per UTI
Assessment / Plan
Assessment / Plan
Gen: NAD, AAOx3.
Eyes: EOMI, PERRLA, no scleral icterus.
Neck: supple.
CV: RRR, +S1/S2, no m/r/g.
Resp: CTAB, no rales, wheezes, or rhonchi.
Abd: +BS, soft, NT, ND
Skin: No rashes. 3+ LUE edema
Neuro: CN 2-12 intact, non-focal.
Psych: Normal mood and affect.
Assessment:
MAURO on CKD3a:
- h/o renal transplant, cont Cellcept/Prograf
- Cr improving with IVFs; Cr 2.5 today
- cap IVF
- Bladder scans
- Nephrology following
L lower neck and upper chest wall mass with associated DVT:
-ideally we would check a CT chest and neck with IV contrast. Unfortunately the risk at this moment is too high with acute kidney injury in the setting of a renal transplant.
-MRI considered but patient has a metallic stapes implant from the 70s which is not MRI compatible. will obtain noncontrast CT images
-c/s IR for Bx
-continue IV Heparin - requires intensive monitoring of PTTs
Hyponatremia:
-likely due to hypotension and possibly a component of SIADH due to likely malignancy
-Na and Cr improving with IVFs
-renal following
-Nephrology following
Elevated trop likely demand ischemia
Hx of CAD
-denies CP
-ECG (read by me): NSR @ 70, R-axis dev, nl intervals, no acute ST/TW changes
-Trop 0.995 peak
-cardiology following
-continue IV Heparin - requires intensive monitoring of PTTs
-continue ASA/Statin
-check echo Sunday
Metabolic Encephalopathy in setting of UTI
- TME resolved
- Culture with pansensitive E. Coli. Continue Rocephin.
Ambulatory dysfunction with frequent falls: PT/OT
DM2 with diabetic nephropathy and neuropathy: cont Lantus/SSI/accuchecks/diabetic diet. Cont neurontin.
Chronic HFpEF:
Chronic back pain, chronic opioid use with dependence: cont oxycodone
Essential hypertension: Cont Atenolol/Norvasc. ARB on hold with MAURO.
Iron deficiency anemia: cont Ferrous sulfate
Hyperlipidemia: cont Zetia/statin
Obesity due to excess calories
Peripheral arterial disease: Cont ASA/statin
Code: Full
Anticipated Discharge: > 48 hours
Subjective/Interval History
-
Date of Service: July 20, 2024
resting comfortably, no complaints at present
Objective Data
-
Labs:
Laboratory Results
07/20/24 07/20/24 07/20/24
02:51 07:44 09:35
WBC 8.8
Hgb 10.6 L
Hct 32.3 L
Plt Count 112 L
APTT 44.6 H > 200 H*
Sodium 130 L
Potassium 4.7
Chloride 107
Carbon Dioxide 18 L
BUN 50 H
Creatinine 2.5 H
Glucose 122 H
Calcium 9.8
Vital Signs:
Vital Signs
Temp Pulse Resp BP Pulse Ox
97.1 F 86 20 111/80 95
07/20/24 11:33 07/20/24 11:33 07/20/24 11:33 07/20/24 11:33 07/20/24 11:33
I&O
07/19/24 07/20/24 07/21/24
06:59 06:59 06:59
Intake Total 480 / 480
Output Total 150 / 150 900 / 900
Balance -150 / -150 -420 / -420
Data Reviewed
-
Total Time Spent with Patient (in minutes): 51
Labs: Labs Reviewed by me
--- NOTE | 2024-07-20 12:23 | W.PN.NEPH.PH ---
Today's Communication / Plan
-
Check random bladder scan
No more IV fluid
Follow BMP
Tacrolimus level pending
Assessment/Plan
-
Impression:
MAURO
CKD 3b (1.7)
Renal transplant 12 years prior
Hyponatremia with sodium of 126
Change in mental status
SOB
Neck mass
Left upper extremity DVT
History of hypertension
History of diabetes
AFIB hx
CAD/PAD
Pulmonary hypertension
Aortic valvular stenosis
Ambulatory dysfunction with frequent falls
Positive troponin
Plan:
MAURO/Hyponatremia:
-Creatinine unchange at 2.5
-UA notes chronic 3+ blood and 3 plus albuminuria
- Suspect related to hypotension on presentation but now hemodynamically stable
- No more IV fluids to be provided
- Hyponatremia persists but stable at 130
- Obtained urine creatinine ,urine sodium, : Fractional secretion of sodium was consistent with prerenal stimulus
- Accurate I's and O's, check PVR bladder scan: currently with williamck
- Follow-up tacrolimus trough level pending
- Blood pressure stable and now back on antihypertensives
- Heparin drip for DVT
- CT with IV contrast would likely precipitate dialysis dependent renal failure in setting of acute kidney injury in CKD stage 3b
-CT scan of neck and upper extremity be completed without IV contra RE: neck mass
- Maintain current immunosuppression regimen which consist of tacrolimus and mycophenolate for kidney transplant
-
-
Date of Service: July 20, 2024
CC / HPI / ROS
-
Chief Complaint:
Acute kidney injury
Renal transplant
CKD stage IIIb
History of Present Illness:
Creatinine down to 2.5
Serum sodium rising to 130 with isotonic saline
Hemodynamically more stable
Continues with mycophenolate and tacrolimus for renal transplant
Review of Systems:
No fevers
No chest pain or shortness of breath
Nonoliguric just under 1 L
Labs
-
Labs:
WBC 8.8 10^3/uL (4.8-10.8) 07/20/24 07:44
RBC 3.85 10^6/uL (4.20-5.40) L 07/20/24 07:44
Hgb 10.6 g/dL (12.0-16.0) L 07/20/24 07:44
Hct 32.3 % (37.0-47.0) L 07/20/24 07:44
Plt Count 112 10^3/uL (130-400) L 07/20/24 07:44
Sodium 130 mmol/L (135-145) L 07/20/24 07:44
Potassium 4.7 mmol/L (3.5-5.1) 07/20/24 07:44
Chloride 107 mmol/L (98-107) 07/20/24 07:44
Carbon Dioxide 18 mmol/L (22-30) L 07/20/24 07:44
BUN 50 mg/dl (7-17) H 07/20/24 07:44
Creatinine 2.5 mg/dL (0.6-1.0) H 07/20/24 07:44
eGFR 18.85 07/20/24 07:44
Glucose 122 mg/dl (70-99) H 07/20/24 07:44
Calcium 9.8 mg/dl (8.4-10.2) 07/20/24 07:44
Ebv-P-Rnkhinupgmd Pept > 00803 pg/ml 07/19/24 07:36
Albumin 2.9 g/dl (3.5-5.0) L 07/18/24 12:54
Physical Exam
-
Vital Signs:
Vital Signs
Temp Pulse Resp BP Pulse Ox
97.1 F 86 20 111/80 95
07/20/24 11:33 07/20/24 11:33 07/20/24 11:33 07/20/24 11:33 07/20/24 11:33
Cardiovascular:: Regular rate and rhythm
Respiratory:: Bilateral: Coarse
Lung Excursion:: Normal
Abdomen:: Nontender and Soft
Bowel Sounds:: Normal
Extremity Edema:: +2: Bilateral:
Villatoro Catheter: No
[2024-07-20 13:11] LABS: Glucose - Point of Care 230 mg/dl (70-99)
[2024-07-20] MEDS: NOVOLOG FLEXPEN-LOW RESISTANCE 2 UNITS SC (13:23)
--- NOTE | 2024-07-20 15:21 | W.PN.CARDCBS ---
Today's Communication / Plan
-
Echocardiogram Sunday
Will follow peripherally, recall if needed
Impression / Plan
-
Associate Director Of Nursing: Dr. Patel
Impression/Plan:
Elevated troponin without chest pain with known significant vascular disease including coronary artery disease and LAD stent in 2009
- She is chest pain-free with no reports of chest pain prior to admission
-Likely related to demand ischemia
- Troponin is trending down
- EKG without ischemic changes
- She had a Lexiscan nuclear stress test July 05, 2023 which showed predominantly fixed defects in the apex consistent with infarct complicated by bowel artifact. EF was 64%.
- Discussed with patient and family with plan for medical therapy
- Continue aspirin 81 mg daily.
- Continue atorvastatin with ezetimibe.
- Repeat 2D echocardiogram on Sunday
Acute renal insufficiency with history of renal transplant/hyponatremia
-Baseline creatinine 1.6 with creatinine on admission 3.1. Creatinine has remained at 2.5 today
-No diuretics
-nephrology consulted.
Left lower neck/upper chest wall mass concerning for malignancy with associated DVT
- Patient and family are aware.
- Noncontrast CT neck and chest to evaluate mass planned next week per primary
- Being considered for IR biopsy
- IV heparin drip for DVT per primary
Acute delirium likely related to narcotics and worsening renal insufficiency/dehydration/UTI
- Improved.
- CT of the head with no acute intracranial abnormality
- Antibiotics for possible infection
-Patient has chronic pain and chronic opiate use with dependence
Updated family at bedside
Progress Note - Associate Director Of Nursing
Subjective
Date of Service: July 20, 2024
Patient was seen and examined. Offers no new complaints. Family at bedside
Objective
Labs:
07/20/24 07:44
07/20/24 07:44
Labs
Hgb 10.6 g/dL (12.0-16.0) L 05/18/25 07:44
Hct 32.3 % (37.0-47.0) L 07/20/24 07:44
Plt Count 112 10^3/uL (130-400) L 07/20/24 07:44
PT 14.9 Sec (11.4-14.6) H 07/18/24 13:29
INR 1.14 07/18/24 13:29
APTT > 200 Sec (23.4-35.0) H* 07/20/24 09:35
Sodium 130 mmol/L (135-145) L 07/20/24 07:44
Potassium 4.7 mmol/L (3.5-5.1) 07/20/24 07:44
BUN 50 mg/dl (7-17) H 07/20/24 07:44
Creatinine 2.5 mg/dL (0.6-1.0) H 07/20/24 07:44
Glucose 122 mg/dl (70-99) H 07/20/24 07:44
Troponins
07/18/24 07/18/24 07/18/24
10:27 11:24 12:54
Troponin I Cancelled Cancelled 0.995 H*
07/18/24
21:05
Troponin I 0.894 H*
Vital Signs and I&O:
Vital Signs
Temp Pulse Resp BP Pulse Ox
97.1 F 86 20 111/80 95
07/20/24 11:33 07/20/24 11:33 07/20/24 11:33 07/20/24 11:33 07/20/24 12:55
Vital Signs
Temp Pulse Resp BP Pulse Ox
97.1 F 86 20 111/80 95
07/20/24 11:33 07/20/24 11:33 07/20/24 11:33 07/20/24 11:33 07/20/24 12:55
Intake & Output
07/18/24 07/19/24 07/20/24 05/19/25
06:59 06:59 06:59 06:59
Intake Total 480 / 480
Output Total 150 / 150 900 / 900
Balance -150 / -150 -420 / -420
Physical Exam
Physical Exam
General: 83-year-old female sleepy but awake and alert. Nasal cannula O2
Heart: Regular, positive S1/S2, Distant heart sounds
Lungs:Poor effort with decreased breath sounds bilaterally. No wheezes or rhonchi
Abd: Positive BS, NT/ND, neg rebound/rigidity/guarding
Ext: Dressings on bilateral heels for pressure ulcers. + Bilateral lower extremity edema. ++ Left upper extremity edema
[2024-07-20] MEDS: STERILE WATER FOR INJECTION 10 ML IV (15:55)
[2024-07-20] MEDS: ROCEPHIN 1000 MG IV (15:55)
[2024-07-20] MEDS: TENORMIN 50 MG PO (17:16)
[2024-07-20] MEDS: PROGRAF 1 MG PO (17:17)
[2024-07-20 18:21] LABS: Glucose - Point of Care 152 mg/dl (70-99)
[2024-07-20 18:43] LABS: APTT 51.7 Sec (23.4-35.0)
[2024-07-20 21:38] LABS: Glucose - Point of Care 181 mg/dl (70-99)
[2024-07-20] MEDS: LIPITOR 10 MG PO (21:52)
[2024-07-20] MEDS: XALATAN OPHTHALMIC SOLUTION 2 DROP BOTH EYES (21:52)
[2024-07-20] MEDS: HEPARIN 25000 UNITS/250 ML IV (22:00)
[2024-07-21 01:59] LABS: APTT 166.8 Sec (23.4-35.0)
[2024-07-21 03:34] VITALS: BP 119/98
[2024-07-21 05:03] LABS: Hematocrit 33.5 % (37.0-47.0); Hemoglobin 10.4 g/dL (12.0-16.0); Mean Corpuscular Hgb 26.7 pg (27.0-31.0); Mean Corpuscular Volume 86.1 fL (81.0-99.0); Mean Platelet Volume 9.9 fL (7.4-10.4); Platelet Count 104 10^3/uL (130-400); Red Blood Cell Count 3.89 10^6/uL (4.20-5.40); White Blood Cell Count 8.3 10^3/uL (4.8-10.8)
[2024-07-21 05:13] LABS: Blood Urea Nitrogen 50 mg/dl (7-17); Calcium 10.1 mg/dl (8.4-10.2); Carbon Dioxide 21 mmol/L (22-30); Chloride 106 mmol/L (98-107); Creatine Phosphokinase 79 U/L (30-135); Estimated Creatinine Clearance 21 ml/min; Glucose 137 mg/dl (70-99); Potassium 4.8 mmol/L (3.5-5.1); Sodium 131 mmol/L (135-145); eGFR 19.79
[2024-07-21 05:17] VITALS: BMI 37.7
[2024-07-21 07:10] VITALS: BP 113/68
[2024-07-21 07:22] LABS: Glucose - Point of Care 138 mg/dl (70-99)
[2024-07-21] MEDS: VISBIOME 1 CAP PO (07:42)
[2024-07-21] MEDS: ZETIA 10 MG PO (07:42)
[2024-07-21] MEDS: PROGRAF 2 MG PO (07:42)
[2024-07-21] MEDS: FEOSOL 325 MG PO (07:42)
[2024-07-21] MEDS: NORVASC 5 MG PO (07:43)
[2024-07-21] MEDS: ASPIR LOW (ENTERIC COATED) 81 MG PO (07:43)
[2024-07-21] MEDS: NEURONTIN 100 MG PO ×3 (07:43→21:45)
[2024-07-21] MEDS: TENORMIN 100 MG PO (07:43)
[2024-07-21] MEDS: MYFORTIC DELAYED REL. 360 MG PO ×2 (07:43→21:42)
[2024-07-21] MEDS: LANTUS 0.13 UNITS SC ×2 (07:44→21:40)
[2024-07-21] MEDS: NOVOLOG FLEXPEN-LOW RESISTANCE SC ×2 (07:44→11:44)
[2024-07-21] MEDS: DESENEX/MITRAZOL/ZEASORB 1 APPLIC TOPICAL ×2 (07:45→21:26)
[2024-07-21 07:55] LABS: Erythrocyte Sed Rate 43 mm/hour (0-20)
--- NOTE | 2024-07-21 09:17 | W.PN.HOSP.TC ---
Today's Communication/Plan
-
continue IV heparin for clot
continue IV abx for UTI
monitor labs
d/w IR and Onc - for L axillary LN biopsy today
Assessment / Plan
Assessment / Plan
Gen: NAD, AAOx3.
Eyes: EOMI, PERRLA, no scleral icterus.
Neck: supple.
CV: RRR, +S1/S2, no m/r/g.
Resp: CTAB, no rales, wheezes, or rhonchi.
Abd: +BS, soft, NT, ND
Skin: No rashes. 3+ LUE edema
Neuro: CN 2-12 intact, non-focal.
Psych: Normal mood and affect.
Assessment:
MAURO on CKD3a:
- h/o renal transplant, cont Cellcept/Prograf
- Cr improving with IVFs; Cr 2.4 today
- cap IVF
- Bladder scans
- Nephrology following
L lower neck and upper chest wall mass with associated DVT:
-ideally we would check a CT chest and neck with IV contrast. Unfortunately the risk at this moment is too high with acute kidney injury in the setting of a renal transplant.
-MRI considered but patient has a metallic stapes implant from the 70s which is not MRI compatible.
-Non-contrast CT showed Large region of confluent lymphadenopathy in the left axilla measuring approximately 17.7 x 7.4 x 8.0 cm in size. Lymphadenopathy in the left supraclavicular region with the largest lymph node conglomeration measuring 3.8 x
2.9 cm. Lymphadenopathy to a lesser degree in the right supraclavicular region. Bulky lymphadenopathy in the mediastinum and bilateral hilar regions. Inflammatory fat stranding throughout the left breast with overlying skin thickening.
-d/w Oncology and IR for Bx of L axillary LN today
-continue IV Heparin - requires intensive monitoring of PTTs
Hyponatremia:
-likely due to hypotension and possibly a component of SIADH due to likely malignancy
-Na and Cr improved with IVF
-renal following
-Nephrology following
Elevated trop likely demand ischemia
Hx of CAD
-denies CP
-ECG (read by me): NSR @ 70, R-axis dev, nl intervals, no acute ST/TW changes
-Trop 0.995 peak
-cardiology following
-continue IV Heparin - requires intensive monitoring of PTTs
-continue ASA/Statin
-pending Echo read
Metabolic Encephalopathy in setting of UTI
- TME resolved
- Culture with pansensitive E. Coli. Continue Rocephin.
Ambulatory dysfunction with frequent falls: PT/OT
DM2 with diabetic nephropathy and neuropathy: cont Lantus/SSI/accuchecks/diabetic diet. Cont neurontin.
Chronic HFpEF:
Chronic back pain, chronic opioid use with dependence: cont oxycodone
Essential hypertension: Cont Atenolol/Norvasc. ARB on hold with MAURO.
Iron deficiency anemia: cont Ferrous sulfate
Hyperlipidemia: cont Zetia/statin
Obesity due to excess calories
Peripheral arterial disease: Cont ASA/statin
Code: Full
Anticipated Discharge: > 48 hours
Subjective/Interval History
-
Date of Service: July 21, 2024
resting comfortably, no complaints
Objective Data
-
Labs:
Laboratory Results
07/21/24 07/21/24 07/21/24
01:36 04:50 09:07
WBC 8.3
Hgb 10.4 L
Hct 33.5 L
Plt Count 104 L
APTT 166.8 H* Pending
Sodium 131 L
Potassium 4.8
Chloride 106
Carbon Dioxide 21 L
BUN 50 H
Creatinine 2.4 H
Glucose 137 H
Calcium 10.1
Vital Signs:
Vital Signs
Temp Pulse Resp BP Pulse Ox
98.3 F 74 20 113/68 92
07/21/24 07:10 07/21/24 07:43 07/21/24 07:10 07/21/24 07:43 07/21/24 07:10
I&O
07/20/24 07/21/24 07/22/24
06:59 06:59 06:59
Intake Total 480 / 480 600 / 600
Output Total 900 / 900 600 / 600
Balance -420 / -420 0 / 0
Data Reviewed
-
Total Time Spent with Patient (in minutes): 51
Labs: Labs Reviewed by me
--- NOTE | 2024-07-21 10:14 | CON.ONC ---
Impression
Impression
83-year-old female with MAURO on CKD 3A with history of renal transplant with left lower neck and upper chest wall mass associated with DVTs.
Plan
Plan
� Continue CellCept/Prograf for history of renal transplant
� Nephrology following, appreciate input
�Patient is not a candidate for IV contrast due to transplant and cannot get MRI due to presence of tawanda from the 70s. Noncontrast CT showed large region of confluent lymphadenopathy in the left axilla measuring approximately 17.7 x 7.4 x 8.0 cm
in size. Lymphadenopathy in the left supraclavicular region with the largest lymph node conglomeration measuring 3.8 x 2.9 cm. Lymphadenopathy to a lesser degree in the right supraclavicular region. Bulky lymphadenopathy in the mediastinum and
bilateral hilar regions. Inflammatory fat stranding throughout the left breast with overlying skin thickening.
�Potential biopsy of left axillary lymph node with IR today
� Continue IV heparin
� Plan for PET scan outpatient
� [facility]
� All other care per primary team
Patient History
History of Present Illness
83-year-old female with past medical history of dementia, seizures, pulmonary hypertension, CHF, CAD, hyperlipidemia, renal failure status post kidney transplant 10+ years ago, diabetes who presented to [facility] with AMS and falls.
Patient was hypoxic, requiring 2 L of oxygen. Duplex ultrasound showed large mass with internal color flow, suspicious for neoplasia and positive occlusive thrombus involving the left subclavian and axillary veins. Non-contrast CT showed Large
region of confluent lymphadenopathy in the left axilla measuring approximately 17.7 x 7.4 x 8.0 cm in size. Lymphadenopathy in the left supraclavicular region with the largest lymph node conglomeration measuring 3.8 x 2.9 cm. Lymphadenopathy to a
lesser degree in the right supraclavicular region. Bulky lymphadenopathy in the mediastinum and bilateral hilar regions. Inflammatory fat stranding throughout the left breast with overlying skin thickening.
Overnight, patient states that she continues to remain short of breath despite minimal movement. Otherwise she reports no acute events. She states she had bypass surgery in her left leg and unknown duration of time ago and ever since then the leg
has been swollen and red.
Past-Medical/Surgical History
Left aVF, bilateral cataracts, left second toe partial amputation, kidney transplant, left lower extremity angioplasty/stent, tubular basal cell excision, Mohs surgery
Patient Medication
�Medication �Instructions �Recorded �Confirmed �Last Taken �Type
aspirin 81 mg tablet,delayed 81 mg PO DAILY Blood clot 07/03/14 07/18/24 07/17/24 History
release prevention/tx
ezetimibe 10 mg tablet 10 mg PO DAILY High cholesterol 07/03/14 07/18/24 07/17/24 History
ferrous sulfate 325 mg (65 mg 325 mg PO DAILY Supplement 07/20/17 07/18/24 07/17/24 History
iron) tablet (FeroSul)
gabapentin 100 mg capsule 100 mg PO TID Pain 07/20/17 07/18/24 07/17/24 History
atenolol 25 mg tablet 50 mg PO QPM Blood pressure 03/03/22 07/18/24 07/17/24 History
atenolol 50 mg tablet 100 mg PO DAILY Blood pressure 03/03/22 07/18/24 07/17/24 History
mycophenolate sodium 180 mg 360 mg PO BID Transplant 03/03/22 07/18/24 07/17/24 History
tablet,delayed release (Myfortic)
atorvastatin 10 mg tablet 10 mg PO HS High cholesterol 03/04/22 07/18/24 07/17/24 History
insulin aspart U-100 100 unit/mL 7 - 9 sliding scale dose SC AC 03/05/22 07/18/24 07/17/24 History
(3 mL) subcutaneous pen (Novolog Diabetes
FlexPen U-100 Insulin aspart)
Bifidobacterium infantis 4 mg 4 mg PO DAILY Gastrointestinal 07/18/24 07/18/24 07/17/24 History
capsule (Align (B.infantis)) Issue
amlodipine 10 mg tablet 5 mg PO DAILY Blood Pressure 07/18/24 07/18/24 07/17/24 History
insulin degludec 100 unit/mL (3 13 unit SC BID Diabetes 07/18/24 07/18/24 07/17/24 History
mL) subcutaneous pen (Tresiba
FlexTouch U-100 insulin)
latanoprost 0.005 % eye drops 1 drp BOTH EYES HS Eye Condition 07/18/24 07/18/24 07/17/24 History
losartan 50 mg tablet 50 mg PO DAILY Blood Pressure 07/18/24 07/18/24 07/17/24 History
oxycodone 5 mg tablet 5 mg PO Q4HPRN PRN severe pain 07/18/24 07/18/24 07/17/24 History
tacrolimus 1 mg capsule, 1 mg PO QPM Transplant 07/18/24 07/18/24 07/17/24 History
immediate-release (Prograf)
tacrolimus 1 mg capsule, 2 mg PO DAILY Transplant 07/18/24 07/18/24 07/17/24 History
immediate-release (Prograf)
Active Medications
Generic Name Dose Route Start Last Admin
Trade Name Freq PRN Reason Stop Dose Admin
Acetaminophen 650 mg 07/18/24 16:13
Acetaminophen 325 Mg Tablet PO 08/15/24 16:12
Q4HPRN PRN
mild pain/temp > 100.4 F
Amlodipine Besylate 5 mg 07/19/24 08:00 07/21/24 07:43
Amlodipine 5 Mg Tablet PO 08/16/24 07:59 5 mg
DAILY VAMSI Administration
Aspirin 81 mg 07/19/24 08:00 07/21/24 07:43
Aspirin 81 Mg (Enteric Coated) Tablet PO 08/16/24 07:59 81 mg
DAILY VAMSI Administration
Atenolol 50 mg 07/18/24 18:00 07/20/24 17:16
Atenolol 50 Mg Tablet PO 08/15/24 17:59 50 mg
QPM VAMSI Administration
Atenolol 100 mg 07/19/24 08:00 07/21/24 07:43
Atenolol 50 Mg Tablet PO 08/16/24 07:59 100 mg
DAILY VAMSI Administration
Atorvastatin Calcium 10 mg 07/18/24 22:00 07/20/24 21:52
Atorvastatin (Lipitor) 10 Mg Tablet PO 08/15/24 21:59 10 mg
HS VAMSI Administration
Ceftriaxone Sodium 1,000 mg 07/19/24 16:00 07/20/24 15:55
Ceftriaxone 1000 Mg / 10 Ml Vial IV 1,000 mg
Q24H VAMSI Administration
Dextrose 12.5 grams 07/18/24 16:13
Dextrose 50% (0.5 Grams/Ml) 50 Ml Syringe IV 08/15/24 16:12
[id number] PRN
hypoglycemia
Protocol
Ezetimibe 10 mg 07/19/24 08:00 07/21/24 07:42
Ezetimibe (Zetia) 10 Mg Tablet PO 08/16/24 07:59 10 mg
DAILY VAMSI Administration
Ferrous Sulfate 325 mg 07/19/24 08:00 07/21/24 07:42
Ferrous Sulfate 325 Mg Tablet PO 08/16/24 07:59 325 mg
DAILY VAMSI Administration
Gabapentin 100 mg 07/18/24 16:13 07/21/24 07:43
Gabapentin 100 Mg Capsule PO 08/15/24 16:12 100 mg
TID VAMSI Administration
Glucagon 1 mg 07/18/24 16:13
Glucagon 1 Mg Vial IM 08/15/24 16:12
PRN PRN
hypoglycemia
Protocol
Heparin Sodium 7,800 units 07/18/24 14:28 07/20/24 19:09
Heparin 80 Units/Kg Iv Rebolus IV 08/15/24 14:27 7,800 units
PRN PRN Administration
PTT < OR = 64 seconds
Heparin Sodium 3,900 units 07/18/24 14:29
Heparin 40 Units/Kg Iv Rebolus IV 08/15/24 14:28
PRN PRN
PTT = 64.1 to 72.9 seconds
Heparin Sodium 25,000 units in 250 mls @ 0 mls/hr 07/18/24 13:30 07/20/24 22:00
Heparin 85395 Units/250 Ml IV 250 mls
PER PROTOCOL VAMSI Administration
Protocol
Per Protocol
Insulin Glargine 13 units/ 0.13 mls @ 0 mls/hr 07/18/24 20:00 07/21/24 07:44
Device SC 08/15/24 19:59 0.13 mls
BID VAMSI Administration
As Directed
Insulin Aspart 0 units 07/18/24 16:30 07/21/24 07:44
Insulin Aspart Low Resistance 300 Units/3 Ml Pen.Injctr SC 08/15/24 16:29 Not Given
AC VAMSI
Protocol
Lactobacillus/Bifidobacterium 1 cap 07/19/24 08:00 07/21/24 07:42
Lactobac/Bifidobac (Visbiome) PO 08/16/24 07:59 1 cap
DAILY VAMSI Administration
Latanoprost 0 drop 07/18/24 22:00 07/20/24 21:52
Latanoprost 0.005% (Ophthalmic Solution) 2.5 Ml Bottle BOTH EYES 08/15/24 21:59 2 drop
HS VAMSI Administration
Miconazole Nitrate 0 applic 07/18/24 20:00 07/21/24 07:45
Miconazole Powder Bottle TOPICAL 08/15/24 19:59 1 applic
BID VAMSI Administration
Mycophenolate Sodium 360 mg 07/18/24 20:00 07/21/24 07:43
Mycophenolic Acid [address] Tablet (Non Form) PO 360 mg
BID VAMSI Administration
Oxycodone HCl 5 mg 07/18/24 16:13
Oxycodone 5 Mg Regular Release Tablet PO 08/01/24 16:12
Q4HPRN PRN
severe pain
Sodium Chloride 0 flush 07/18/24 17:00
Sodium Chloride 0.9% (Flush) Syringe IV 08/15/24 16:59
PER PROTOCOL VAMSI
Sterile Water 10 ml 07/19/24 16:00 07/20/24 15:55
Sterile Water For Injection 10 Ml Vial IV 08/16/24 15:59 10 ml
Q24H VAMSI Administration
Tacrolimus 2 mg 07/19/24 08:00 07/21/24 07:42
Tacrolimus 1 Mg Capsule PO 08/16/24 07:59 2 mg
DAILY VAMSI Administration
Tacrolimus 1 mg 07/18/24 18:00 07/20/24 17:17
Tacrolimus 1 Mg Capsule PO 08/15/24 17:59 1 mg
QPM VAMSI Administration
Review of Systems
-
Unable to obtain full review of systems at this time due to: Dementia
History Source: Patient
Constitutional: Reports Weakness
EENT: Reports No Symptoms
Respiratory: Reports Trouble Breathing
Cardiac: Reports No Symptoms
GI: Reports No Symptoms
Musculoskeletal: Reports Edema
Neuro: Reports Weakness
Psych: Reports No Symptoms
Physical Exam
-
General: Well Developed, Well Nourished, Comfortable, Respiratory Distress (Mild, currently on oxygen), Conversant and Obese
Pulmonary: Clear
GI: Soft and Normal Bowel Sounds
Musculoskeletal: No Clubbing, No Cyanosis and Edema, Left Lower Extrem
Skin: Warm and Dry
Psych: Calm
Labs
Lab Results
WBC 8.3 10^3/uL (4.8-10.8) 07/21/24 04:50
RBC 3.89 10^6/uL (4.20-5.40) L 07/21/24 04:50
Hgb 10.4 g/dL (12.0-16.0) L 07/21/24 04:50
Hct 33.5 % (37.0-47.0) L 07/21/24 04:50
MCV 86.1 fL (81.0-99.0) 05/19/25 04:50
MCH 26.7 pg (27.0-31.0) L 07/21/24 04:50
MCHC 31.0 g/dL (33.0-37.0) L 07/21/24 04:50
RDW 18.0 % (11.5-14.5) H 07/21/24 04:50
Plt Count 104 10^3/uL (130-400) L 07/21/24 04:50
MPV 9.9 fL (7.4-10.4) 07/21/24 04:50
Abs Immat Gran (auto) 0.5 10^3/uL (0-0.05) H 07/18/24 10:27
Absolute Neuts (auto) 7.1 10^3/uL (1.4-6.5) H 07/18/24 10:27
Absolute Lymphs (auto) 2.0 10^3/uL (1.2-3.4) 07/18/24 10:27
Absolute Monos (auto) 0.9 10^3/uL (0.1-0.6) H 07/18/24 10:27
Absolute Eos (auto) 0.0 10^3/uL (0-0.7) 07/18/24 10:27
Absolute Basos (auto) 0.1 10^3/uL (0-0.2) 07/18/24 10:27
Immature Gran % 4.7 % (0-0.5) H 07/18/24 10:27
Neutrophils % 66.8 % (42.2-75.2) 07/18/24 10:27
Lymphocytes % 18.9 % (20.5-51.1) L 07/18/24 10:27
Monocytes % 8.5 % (1.7-9.3) 07/18/24 10:27
Eosinophils % 0.3 % (0-6) 07/18/24 10:27
Basophils % 0.8 % (0-2) 07/18/24 10:27
Creatinine 2.4 mg/dL (0.6-1.0) H 07/21/24 04:50
Vital Signs
Vital Signs
Temp Pulse Resp BP Pulse Ox
98.3 F 74 20 113/68 92
07/21/24 07:10 07/21/24 07:43 07/21/24 07:10 07/21/24 07:43 07/21/24 07:10
[2024-07-21 10:18] LABS: APTT 122.7 Sec (23.4-35.0)
--- NOTE | 2024-07-21 10:45 | WOUNDNOTE ---
GLUTEAL CLEFT AND B/L BUTTOCKS
--- NOTE | 2024-07-21 10:50 | WOUNDNOTE ---
[facility] RN note: Patient admitted with DVT L upper extremity, Acute UTI and kidney injury.
See H&P for complete history. Live with .
PMH: ED Past Medical History: CAD, CHF, HTN, Hypercholesterolemia, IDDM, Seizures and Other (PAD, Chronic renal failure, PNA, Cellulitis, Gastroporesis)
ED Past Surgical History: Cardiac (Stent x1), Urological (Kidney transplant 2011) and Other (Left second toe partial amputation, Left leg Stent)
Wound Location and type/assessment: Patient admitted with: Gluteal cleft evolving stage 3 mixed with incontinent associated skin damage. Bilateral distal buttock close to rectum with MASD also due to the above. Nurse confirmed she talked to
patient's and he states that she sits in chair during day, becoming increasingly weak. Nurse states patient incontinent of stool and urine. Heels stage 1 foams in use.
Appetite: Fair.
Pressure redistribution devices in place: Air overlay in use, palm check done, air cushion.
Plan: Applied skin prep to periwound, alginate in gluteal cleft and buttocks followed by Exuderm thin sacral shaped dressing. Recommend keep on for 3 days if able.
Will confirm orders with hospitalist and update nurse.
Updated care plan and will follow as needed.
Note to case management of equipment requested for discharge: Air mattress.
Recommend follow up at wound care center upon discharge.
--- NOTE | 2024-07-21 11:00 | W.PN.CARDCBS ---
Today's Communication / Plan
-
Check echo
Elevated troponin felt to be nonischemic myocardial injury
Await workup for neck mass
Impression / Plan
-
Technical Healthcare Consultant: Dr. Patel
Impression:
Nonmyocardial ischemic injury
Acute renal insufficiency with history of renal transplant/hyponatremia
Left lower neck/upper chest wall mass concerning for malignancy with associated DVT
Coronary artery disease and LAD stent in 2009
History of PVD status post distal toe amputation July 2014, status post SMALL EQUIPMENT OPERATOR of distal left SFA and popliteal artery August 2014, left SMALL EQUIPMENT OPERATOR and stent March 2017, left femoral to anterior tibial bypass June 2017
History of atrial fibrillation felt to be postoperative phenomenon without recurrence
Hypertension
Hyperlipidemia
Type 2 diabetes
GERD
Depression
Sleep apnea
Lexiscan nuclear stress test July 05, 2023 which showed predominantly fixed defects in the apex consistent with infarct complicated by bowel artifact. EF was 64%.
Plan:
Elevated troponin felt to be nonischemic myocardial injury
Check echo
Await workup for neck mass
On IV heparin for DVT
Progress Note - Technical Healthcare Consultant
Subjective
Date of Service: July 21, 2024
No chest pain or shortness of breath
Objective
Labs:
07/21/24 04:50
07/21/24 04:50
Labs
Hgb 10.4 g/dL (12.0-16.0) L 07/21/24 04:50
Hct 33.5 % (37.0-47.0) L 07/21/24 04:50
Plt Count 104 10^3/uL (130-400) L 07/21/24 04:50
PT 14.9 Sec (11.4-14.6) H 07/18/24 13:29
INR 1.14 07/18/24 13:29
APTT 122.7 Sec (23.4-35.0) H 07/21/24 09:42
Sodium 131 mmol/L (135-145) L 07/21/24 04:50
Potassium 4.8 mmol/L (3.5-5.1) 07/21/24 04:50
BUN 50 mg/dl (7-17) H 07/21/24 04:50
Creatinine 2.4 mg/dL (0.6-1.0) H 07/21/24 04:50
Glucose 137 mg/dl (70-99) H 07/21/24 04:50
Troponins
07/18/24 07/18/24 07/18/24
11:24 12:54 21:05
Troponin I Cancelled 0.995 H* 0.894 H*
Vital Signs and I&O:
Vital Signs
Temp Pulse Resp BP Pulse Ox
98.3 F 74 20 113/68 93
07/21/24 07:10 07/21/24 07:43 07/21/24 07:10 07/21/24 07:43 07/21/24 10:56
Vital Signs
Temp Pulse Resp BP Pulse Ox
98.3 F 74 20 113/68 93
07/21/24 07:10 07/21/24 07:43 07/21/24 07:10 07/21/24 07:43 07/21/24 10:56
Intake & Output
07/19/24 07/20/24 07/21/24 07/22/24
06:59 06:59 06:59 06:59
Intake Total 480 / 480 600 / 600
Output Total 150 / 150 900 / 900 600 / 600
Balance -150 / -150 -420 / -420 0 / 0
Physical Exam
Physical Exam
General: Well developed, well nourished in NAD.
Neck: Supple, no JVD, HJR, carotids +2 B/L, no bruits bilaterally.
Heart: Non displaced PMI, RRR, no murmurs, No S3, S4, no rubs.
Lungs: Scattered rhonchi
Extremities: No clubbing, cyanosis or edema bilaterally.
Neuro: Grossly nonfocal, awake, alert and oriented x3.
[2024-07-21 11:35] VITALS: BP 144/53
[2024-07-21 11:36] LABS: Glucose - Point of Care 132 mg/dl (70-99)
--- NOTE | 2024-07-21 12:30 | PN.CDI ---
CDI
- -
CDI:
Physician Documentation Request
Admit Date: 07/18/24 14:37
Dear Doctor Kwame,
Please review the following and provide your response in the progress notes.
Clinical Indicators:
- 07/21 PN 'Elevated trop likely demand ischemia'
- 07/21 Cardiology 'Elevated troponin felt to be nonischemic myocardial injury'
- 07/19 H&P 'Elevated troponin-NSTEMI'
Laboratory Tests
07/18/24 07/18/24
12:54 21:05
Troponin I 0.995 H* 0.894 H*
Please clarify the following regarding the documented elevated troponins:
Non-ischemic myocardial injury
Type II GA due to demand ischemia
NSTEMI
Other (please specify)
Use of terms such as suspected, likely, concern for, or probable (associated with a specific diagnosis that is being evaluated, monitored, or treated as if it exists) are acceptable and can be coded in the inpatient setting, when documented at the
time of discharge.
Thank you,
William Dao RN
CDI Specialist
Please use your independent medical judgment in providing your response.
[2024-07-21] MEDS: TYLENOL 650 MG PO (13:08)
--- NOTE | 2024-07-21 13:21 | PTCARENOTE ---
pt c/o difficulty breathing and CP associated with deep breathing. Dr. Puente at bedside. EKG, NSR w/ PAC's, trop ordered. Tylenol given to the pt as per MD order.
[2024-07-21 13:59] LABS: Troponin I 0.453 ng/ml
--- NOTE | 2024-07-21 14:12 | W.PN.NEPH.PH ---
Today's Communication / Plan
-
follow labs
Assessment/Plan
-
Impression:
MAURO
CKD 3b (1.7)
Renal transplant 12 years prior
Hyponatremia with sodium of 126
Change in mental status
SOB
Neck mass
Left upper extremity DVT
History of hypertension
History of diabetes
AFIB hx
CAD/PAD
Pulmonary hypertension
Aortic valvular stenosis
Ambulatory dysfunction with frequent falls
Positive troponin
Plan:
MAURO/Hyponatremia:
-Creatinine no sig change at 2.4
-UA notes chronic 3+ blood and 3 plus albuminuria
- Suspect related to hypotension on presentation but now hemodynamically stable
maqy consider renal US if cr still high
- No more IV fluids to be provided
- Hyponatremia persists but stable at 131
- Obtained urine creatinine ,urine sodium, : Fractional secretion of sodium was consistent with prerenal stimulus
- Accurate I's and O's, follow PVR bladder scan was 300c on 07/20
- Follow-up tacrolimus trough level 7.6 on 07/18
- Blood pressure stable and now back on antihypertensives
- Heparin drip for DVT
-CT scan of neck and upper extremity be completed without IV contra RE, concern of breast ca, for LN biopsy today
- Maintain current immunosuppression regimen which consist of tacrolimus and mycophenolate for kidney transplant
-
-
Date of Service: July 21, 2024
CC / HPI / ROS
-
Chief Complaint:
Acute kidney injury
Renal transplant
CKD stage IIIb
History of Present Illness:
Creatinine down to 2.4
Serum sodium rising to 131
Hemodynamically more stable
Continues with mycophenolate and tacrolimus for renal transplant
Review of Systems:
No fevers
has pleuritic cp but no shortness of breath
wt is up, UOP just 600cc
Labs
-
Labs:
WBC 8.3 10^3/uL (4.8-10.8) 07/21/24 04:50
RBC 3.89 10^6/uL (4.20-5.40) L 07/21/24 04:50
Hgb 10.4 g/dL (12.0-16.0) L 07/21/24 04:50
Hct 33.5 % (37.0-47.0) L 07/21/24 04:50
Plt Count 104 10^3/uL (130-400) L 07/21/24 04:50
Sodium 131 mmol/L (135-145) L 07/21/24 04:50
Potassium 4.8 mmol/L (3.5-5.1) 07/21/24 04:50
Chloride 106 mmol/L (98-107) 07/21/24 04:50
Carbon Dioxide 21 mmol/L (22-30) L 07/21/24 04:50
BUN 50 mg/dl (7-17) H 07/21/24 04:50
Creatinine 2.4 mg/dL (0.6-1.0) H 07/21/24 04:50
eGFR 19.79 07/21/24 04:50
Glucose 137 mg/dl (70-99) H 07/21/24 04:50
Calcium 10.1 mg/dl (8.4-10.2) 07/21/24 04:50
Kev-L-Iacmilezefe Pept > 93444 pg/ml 07/19/24 07:36
Albumin 2.9 g/dl (3.5-5.0) L 07/18/24 12:54
Physical Exam
-
Vital Signs:
Vital Signs
Temp Pulse Resp BP Pulse Ox
98.5 F 70 20 144/53 95
07/21/24 11:35 07/21/24 11:35 07/21/24 11:35 07/21/24 11:35 07/21/24 11:35
Cardiovascular:: Regular rate and rhythm
Respiratory:: Bilateral: CTA (anteriorly)
Lung Excursion:: Normal
Abdomen:: Nontender and Soft
Bowel Sounds:: Normal
Extremity Edema:: +2: Bilateral:
Villatoro Catheter: No
[2024-07-21 15:15] VITALS: BP 104/83
[2024-07-21] MEDS: ROCEPHIN 1000 MG IV (16:01)
[2024-07-21] MEDS: STERILE WATER FOR INJECTION 10 ML IV (16:01)
[2024-07-21 16:49] LABS: Glucose - Point of Care 154 mg/dl (70-99)
--- NOTE | 2024-07-21 17:00 | VATNOTE ---
while obtaining lab from midline, right AC line noted to be occluded. Removed IV site and continued to bleed for 10 min. Finally stopped with 1 Quik Clot applied and sev. 2x2's; pressure dsg applied with Fred. Kelsi MELGAR made aware.
[2024-07-21] MEDS: HEPARIN 7800 UNITS IV (17:56)
[2024-07-21] MEDS: PROGRAF 1 MG PO (17:59)
[2024-07-21] MEDS: TENORMIN 50 MG PO (17:59)
[2024-07-21] MEDS: NOVOLOG FLEXPEN-LOW RESISTANCE 1 UNITS SC (18:00)
[2024-07-21 19:00] VITALS: BP 116/64
[2024-07-21 20:51] LABS: Hepatitis B Surface Antigen Negative (Negative)
[2024-07-21 21:08] LABS: Hepatitis B Surface Antibody Negative; Hepatitis C Antibody Negative (Negative)
[2024-07-21 21:39] LABS: Glucose - Point of Care 150 mg/dl (70-99)
[2024-07-21] MEDS: LIPITOR 10 MG PO (21:44)
[2024-07-21] MEDS: XALATAN OPHTHALMIC SOLUTION 1 DROP BOTH EYES (21:46)
[2024-07-22] VITALS (12 sets, daily range): BP systolic 70–139; BP diastolic 35–105; BMI 38.5
--- NOTE | 2024-07-22 00:30 | PTCARENOTE ---
Minimal urine output. Bladder scanned for >400 ml. Straight cathed for 425ml very cloudy sediment. Raúl JARRETT notified of same. No new orders.
[2024-07-22 01:02] LABS: APTT 159.3 Sec (23.4-35.0)
[2024-07-22 08:31] LABS: Glucose - Point of Care 115 mg/dl (70-99)
[2024-07-22 08:34] LABS: APTT 93.7 Sec (23.4-35.0)
[2024-07-22 08:36] LABS: Hematocrit 32.5 % (37.0-47.0); Hemoglobin 10.5 g/dL (12.0-16.0); Mean Corp Hgb Conc. 32.3 g/dL (33.0-37.0); Mean Corpuscular Hgb 27.3 pg (27.0-31.0); Mean Corpuscular Volume 84.4 fL (81.0-99.0); Mean Platelet Volume 9.6 fL (7.4-10.4); Platelet Count 86 10^3/uL (130-400); Red Blood Cell Count 3.85 10^6/uL (4.20-5.40); Red Cell Dist. Width 18.1 % (11.5-14.5); White Blood Cell Count 10.1 10^3/uL (4.8-10.8)
--- NOTE | 2024-07-22 09:11 | W.PN.HOSP.TC ---
Today's Communication/Plan
-
IR guided biopsy of L axillary NESTOR cluster
eventual transition to PO Eliquis from IV Heparin
monitor platelets
continue IV abx per UTI
Assessment / Plan
Assessment / Plan
Gen: NAD, AAOx3.
Eyes: EOMI, PERRLA, no scleral icterus.
Neck: supple.
CV: RRR, +S1/S2, no m/r/g.
Resp: CTAB, no rales, wheezes, or rhonchi.
Abd: +BS, soft, NT, ND
Skin: No rashes. 3+ LUE edema
Neuro: CN 2-12 intact, non-focal.
Psych: Normal mood and affect.
Echo: Normal left ventricular size and function. Normal regional wall motion. Mild concentric left ventricular hypertrophy. LV ejection fraction is 55-60% by visual assessment. Stage II diastolic dysfunction suggestive of abnormal relaxation and
increased filling pressures. Thickened mitral valve leaflets. Mitral annular calcification. Mild mitral stenosis. Peak/mean gradients across the mitral valve are 9/4 mmHg. There is at least mild mitral regurgitation which may have been
underestimated due to mitral annular calcification. Indexed LA volume is within normal range (15-34 mL/m2).
Trileaflet aortic valve. Thickened and calcified aortic valve with restricted leaflet motion. Moderate aortic stenosis. Peak/mean gradients across the aortic valve are 31/16 mmHg. Using an LVOT diameter of 2.0 cm, the aortic valve by the Continuity
equation is calculated at 1.0 cm2. Trace aortic regurgitation. Tricuspid valve opens normally. Moderate tricuspid regurgitation. Estimated pulmonary artery pressure of 64 mmHg. Assuming a right atrial pressure of 8 mmHg. Mildly dilated right atrium.
Enlarged right ventricular size. Normal right ventricular systolic function.
Since echocardiogram 04/10/2023, there is little change. There may be mild mitral stenosis and PA systolic pressure is increased slightly from 43 mmHg to 64 mmHg.
Assessment:
pre-renal MAURO on CKD3a:
- h/o renal transplant, cont Cellcept/Prograf. tacrolimus trough level 7.6 on 07/18
- Cr improving with IVFs; Cr 2.4 today
- cap IVF
- Bladder scans
- Nephrology following
L lower neck and upper chest wall mass with associated DVT:
-ideally we would check a CT chest and neck with IV contrast. Unfortunately the risk at this moment is too high with acute kidney injury in the setting of a renal transplant.
-MRI considered but patient has a metallic stapes implant from the 70s which is not MRI compatible.
-Non-contrast CT showed Large region of confluent lymphadenopathy in the left axilla measuring approximately 17.7 x 7.4 x 8.0 cm in size. Lymphadenopathy in the left supraclavicular region with the largest lymph node conglomeration measuring 3.8 x
2.9 cm. Lymphadenopathy to a lesser degree in the right supraclavicular region. Bulky lymphadenopathy in the mediastinum and bilateral hilar regions. Inflammatory fat stranding throughout the left breast with overlying skin thickening.
-d/w Oncology and IR for Bx of L axillary LN today
-continue IV Heparin - requires intensive monitoring of PTTs
Hyponatremia:
-likely due to hypotension and possibly a component of SIADH due to likely malignancy
-Na and Cr improved with IVF
-renal following
-Nephrology following
Elevated trop likely Non-ischemic myocardial injury
Hx of CAD
-denies CP
-ECG (read by me): NSR @ 70, R-axis dev, nl intervals, no acute ST/TW changes
-Trop 0.995 peak
-cardiology following
-continue IV Heparin - requires intensive monitoring of PTTs
-continue ASA/Statin
-Echo: as above
Metabolic Encephalopathy in setting of UTI
- TME resolved
- Culture with pansensitive E. Coli. Continue Rocephin, day 5
Ambulatory dysfunction with frequent falls: PT/OT
DM2 with diabetic nephropathy and neuropathy: cont Lantus/SSI/accuchecks/diabetic diet. Cont neurontin.
Chronic HFpEF:
Chronic back pain, chronic opioid use with dependence: cont oxycodone
Essential hypertension: Cont Atenolol/Norvasc. ARB on hold with MAURO.
Iron deficiency anemia: cont Ferrous sulfate
Hyperlipidemia: cont Zetia/statin
Obesity due to excess calories
Peripheral arterial disease: Cont ASA/statin
Acute thrombocytopenia
- monitor counts
- Hematology following
Code: Full
Anticipated Discharge: > 48 hours
Subjective/Interval History
-
Date of Service: July 22, 2024
reports periods of SOB with exertion
denies CP
Objective Data
-
Labs:
Laboratory Results
07/22/24 07/22/24
00:08 08:12
WBC 10.1
Hgb 10.5 L
Hct 32.5 L
Plt Count 86 L
APTT 159.3 H* 93.7 H
Sodium Pending
Potassium Pending
Chloride Pending
Carbon Dioxide Pending
BUN Pending
Creatinine Pending
Glucose Pending
Calcium Pending
Vital Signs:
Vital Signs
Temp Pulse Resp BP Pulse Ox
97.6 F 70 18 125/70 93
07/22/24 07:15 07/22/24 07:15 07/22/24 07:15 07/22/24 07:15 07/22/24 09:08
I&O
07/21/24 07/22/24 07/23/24
06:59 06:59 06:59
Intake Total 600 / 600 1140 / 1140
Output Total 600 / 600 455 / 455
Balance 0 / 0 685 / 685
Physical Exam
-
General: No Apparent Distress
HEENT: Normocephalic and Atraumatic
Respiratory: Negative Wheezes
Cardiac: Regular Rhythm and S1/S2
GI: Soft
Genito-urinary: No Costovertebral Tender
Musculoskeletal: Edema, Left Upper Extrem
Neuro: AO x 3
Psych: Calm
Data Reviewed
-
Total Time Spent with Patient (in minutes): 51
Labs: Labs Reviewed by me
[2024-07-22] MEDS: DESENEX/MITRAZOL/ZEASORB 1 APPLIC TOPICAL ×2 (09:19→19:42)
[2024-07-22] MEDS: NOVOLOG FLEXPEN-LOW RESISTANCE SC ×3 (09:19→17:27)
[2024-07-22] MEDS: HEPARIN 25000 UNITS/250 ML IV (09:26)
[2024-07-22] MEDS: NORVASC 5 MG PO (09:28)
[2024-07-22] MEDS: TENORMIN 100 MG PO (09:29)
[2024-07-22] MEDS: ZETIA 10 MG PO (09:29)
[2024-07-22] MEDS: MYFORTIC DELAYED REL. 360 MG PO ×2 (09:29→19:43)
[2024-07-22] MEDS: ASPIR LOW (ENTERIC COATED) 81 MG PO (09:29)
[2024-07-22] MEDS: FEOSOL 325 MG PO (09:29)
[2024-07-22] MEDS: NEURONTIN 100 MG PO ×3 (09:29→21:30)
[2024-07-22] MEDS: PROGRAF 2 MG PO (09:30)
[2024-07-22] MEDS: LANTUS 0.13 UNITS SC ×2 (09:30→21:30)
[2024-07-22] MEDS: VISBIOME 1 CAP PO (09:30)
--- NOTE | 2024-07-22 09:42 | PTCARENOTE ---
Heparin drip placed on hold per IR instruction; pt for IR procedure.
[2024-07-22 10:03] LABS: Blood Urea Nitrogen 55 mg/dl (7-17); Calcium 10.4 mg/dl (8.4-10.2); Carbon Dioxide 18 mmol/L (22-30); Chloride 107 mmol/L (98-107); Estimated Creatinine Clearance 22 ml/min; Glucose 114 mg/dl (70-99); Potassium 4.8 mmol/L (3.5-5.1); Sodium 131 mmol/L (135-145); eGFR 20.83
--- NOTE | 2024-07-22 10:18 | W.PN.UPDATE ---
Update Note
Progress Note Update
Echocardiogram similar to April 2023. No further cardiac workup needed. Will sign off and arrange follow-up.
--- NOTE | 2024-07-22 12:33 | W.PN.NEPH.PH ---
Today's Communication / Plan
-
follow labs
prn lasix
Assessment/Plan
-
Impression:
MAURO
CKD 3b (1.7)
Renal transplant 12 years prior
Hyponatremia with sodium of 126
Change in mental status
SOB
Neck mass
Left upper extremity DVT
History of hypertension
History of diabetes
AFIB hx
CAD/PAD
Pulmonary hypertension
Aortic valvular stenosis
Ambulatory dysfunction with frequent falls
Positive troponin
Plan:
MAURO/Hyponatremia:
-Creatinine slightly better at 2.3
-UA notes chronic 3+ blood and 3 plus albuminuria
- Suspect related to hypotension on presentation but now hemodynamically stable
maqy consider renal US if cr still high
Hyponatremia persists but stable at 131
requiring SC for U retention, monitor with bladder scan
tacrolimus trough level 7.6 on 07/18
- Blood pressure stable and now back on antihypertensives
wt is increasing may need lasix
- Heparin drip for DVT
-CT scan of neck and upper extremity be completed without IV contra RE, concern of breast ca, for LN biopsy today-onc follows
- Maintain current immunosuppression regimen which consist of tacrolimus and mycophenolate for kidney transplant
d/w pt and nursing
-
-
Date of Service: July 22, 2024
CC / HPI / ROS
-
Chief Complaint:
Acute kidney injury
Renal transplant
CKD stage IIIb
History of Present Illness:
Creatinine down to 2.3
Serum sodium stable at 131
Hemodynamically more stable
Continues with mycophenolate and tacrolimus for renal transplant
Review of Systems:
No fevers
mild shortness of breath
wt is up, UOP not measured, required SC once
Labs
-
Labs:
WBC 10.1 10^3/uL (4.8-10.8) 07/22/24 08:12
RBC 3.85 10^6/uL (4.20-5.40) L 07/22/24 08:12
Hgb 10.5 g/dL (12.0-16.0) L 07/22/24 08:12
Hct 32.5 % (37.0-47.0) L 07/22/24 08:12
Plt Count 86 10^3/uL (130-400) L 07/22/24 08:12
Sodium 131 mmol/L (135-145) L 07/22/24 08:12
Potassium 4.8 mmol/L (3.5-5.1) 07/22/24 08:12
Chloride 107 mmol/L (98-107) 07/22/24 08:12
Carbon Dioxide 18 mmol/L (22-30) L 07/22/24 08:12
BUN 55 mg/dl (7-17) H 07/22/24 08:12
Creatinine 2.3 mg/dL (0.6-1.0) H 07/22/24 08:12
eGFR 20.83 07/22/24 08:12
Glucose 114 mg/dl (70-99) H 07/22/24 08:12
Calcium 10.4 mg/dl (8.4-10.2) H 07/22/24 08:12
Bch-R-Xawadcrglgr Pept > 38630 pg/ml 07/19/24 07:36
Albumin 2.9 g/dl (3.5-5.0) L 07/18/24 12:54
Physical Exam
-
Vital Signs:
Vital Signs
Temp Pulse Resp BP Pulse Ox
97.8 F 74 16 139/105 93
07/22/24 12:13 07/22/24 12:13 07/22/24 12:13 07/22/24 12:13 07/22/24 12:13
Cardiovascular:: Regular rate and rhythm
Respiratory:: Bilateral: CTA (anteriorly)
Lung Excursion:: Normal
Abdomen:: Nontender and Soft
Bowel Sounds:: Normal
Extremity Edema:: +2: Bilateral:
Villatoro Catheter: No
Other Findings::
left UE 3+edema
--- NOTE | 2024-07-22 14:36 | PTCARENOTE ---
Pt returned from IR/renal US; transferred to bed. Pt drowsy but arousable. Lt axilla bandaids D/I. Pt with +3 edema LUE; encouraging pt to keep LUE elevated on pillow. Will continue to monitor.
[2024-07-22 14:38] LABS: Glucose - Point of Care 138 mg/dl (70-99)
[2024-07-22] MEDS: FLUSH (NSS) 1 FLUSH IV ×2 (14:54→16:31)
[2024-07-22] MEDS: LASIX 40 MG IV (14:54)
--- NOTE | 2024-07-22 15:50 | W.PN.ONC ---
Today's Communication / Plan
-
LN biopsy in IR today
Concern for lymphoma, metastatic breast cancer, among others
Transition heparin to Eliquis
Mgmt of CKD and renal transplant per nephrology
Will follow along
Impression
Impression
extensive left axillary/neck adenopathy
left axillary and subclavian DVT
h/o renal transplant
dyspnea
Plan
Plan
LN biopsy in IR today
Concern for lymphoma, metastatic breast cancer, among others
Transition heparin to Eliquis
Mgmt of CKD and renal transplant per nephrology
monitor respiratory status
Will follow along
Subjective/Objective
Subjective/Objective
c/o dyspnea
Vital Signs:
Vital Signs
Temp Pulse Resp BP Pulse Ox
97.4 F 74 18 106/58 96
07/22/24 15:28 07/22/24 15:28 07/22/24 15:28 07/22/24 15:28 07/22/24 15:28
Lab Results:
Laboratory Data
WBC 10.1 10^3/uL (4.8-10.8) 07/22/24 08:12
Hgb 10.5 g/dL (12.0-16.0) L 07/22/24 08:12
Plt Count 86 10^3/uL (130-400) L 07/22/24 08:12
PT 14.9 Sec (11.4-14.6) H 07/18/24 13:29
INR 1.14 07/18/24 13:29
APTT 36.0 Sec (23.4-35.0) H 07/22/24 14:52
eGFR 20.83 07/22/24 08:12
--- NOTE | 2024-07-22 16:27 | PTCARENOTE ---
Pt drowsy but arousable since return from IR procedure; returns quickly to sleep if left undisturbed. RAMEY weakly. Able to assist with turning. Oriented x3, but forgetful. VSS. Telemetry:NSR. Currently on nc 3 lpm- pulse ox 96%, pt with marked
TEIXEIRA/tachypnea with minimal exertion. Abd obese, soft, to resume 2000 alfonso diet for dinner. Purewick cath in place- incont small amts dark bubba urine. Sacral dressing D/I. heparin drip dc'd; to start PO Eliquis. Resting quietly at present. Will
continue to monitor.
[2024-07-22] MEDS: ROCEPHIN 1000 MG IV (16:31)
[2024-07-22] MEDS: STERILE WATER FOR INJECTION 10 ML IV (16:31)
[2024-07-22] MEDS: ELIQUIS 10 MG PO (16:52)
[2024-07-22 17:00] LABS: Glucose - Point of Care 125 mg/dl (70-99)
--- NOTE | 2024-07-22 17:13 | CM ---
Therapy indicating SNF. Spoke with patient's spouse who stated that he would like referrals sent to: [facility] [place], [facility], [facility] and [facility]. Will make referrals.
Attending updated.
Plan: Case management will continue to follow and assist with discharge planning. SNF upon bed availability.
[2024-07-22] MEDS: TENORMIN 50 MG PO (17:59)
[2024-07-22] MEDS: PROGRAF 1 MG PO (17:59)
[2024-07-22 21:17] LABS: Glucose - Point of Care 109 mg/dl (70-99)
[2024-07-22] MEDS: LIPITOR 10 MG PO (21:30)
[2024-07-22] MEDS: XALATAN OPHTHALMIC SOLUTION 1 DROP BOTH EYES (21:31)
[2024-07-23] VITALS (8 sets, daily range): BP systolic 93–157; BP diastolic 47–106; BMI 38.6
[2024-07-23 07:42] LABS: Glucose - Point of Care 82 mg/dl (70-99)
[2024-07-23] MEDS: NOVOLOG FLEXPEN-LOW RESISTANCE SC (07:43)
--- NOTE | 2024-07-23 08:09 | W.PN.ONC2 ---
Today's Communication / Plan
-
Await pathology. Standing by
Impression
Impression
extensive left axillary/neck adenopathy
left axillary and subclavian DVT
h/o renal transplant
dyspnea
Plan
Plan
LN biopsy in IR 07/22 -pathology is pending
Concern for lymphoma, metastatic breast cancer, among others
Transition heparin to Eliquis
Mgmt of CKD and renal transplant per nephrology
Subjective/Objective
Chief Complaint
ACS hematology oncology
Subjective
Poor historian. Confused. Underwent lymph node biopsy yesterday. Pathology pending
Vital Signs:
Vital Signs
Temp Pulse Resp BP Pulse Ox
97.3 F 64 18 132/57 96
07/23/24 03:12 07/23/24 03:12 07/23/24 03:12 07/23/24 03:12 07/23/24 03:12
Lab Results:
Laboratory Data
WBC 10.1 10^3/uL (4.8-10.8) 07/22/24 08:12
Hgb 10.5 g/dL (12.0-16.0) L 07/22/24 08:12
Plt Count 86 10^3/uL (130-400) L 07/22/24 08:12
PT 14.9 Sec (11.4-14.6) H 07/18/24 13:29
INR 1.14 07/18/24 13:29
APTT 36.0 Sec (23.4-35.0) H 07/22/24 14:52
eGFR 20.83 07/22/24 08:12
Physical Exam
Cardiology: S1 and S2
Pulmonary: Clear
GI: Soft
[2024-07-23] MEDS: VISBIOME 1 CAP PO (08:29)
[2024-07-23] MEDS: MYFORTIC DELAYED REL. 360 MG PO ×2 (08:29→20:35)
[2024-07-23] MEDS: NEURONTIN 100 MG PO ×3 (08:30→21:57)
[2024-07-23] MEDS: FEOSOL 325 MG PO (08:30)
[2024-07-23] MEDS: PROGRAF 2 MG PO (08:30)
[2024-07-23] MEDS: NORVASC PO (08:31)
[2024-07-23] MEDS: ELIQUIS 10 MG PO (08:31)
[2024-07-23] MEDS: ASPIR LOW (ENTERIC COATED) 81 MG PO (08:31)
[2024-07-23] MEDS: TENORMIN PO (08:32)
[2024-07-23] MEDS: LANTUS 0.13 UNITS SC ×2 (08:35→21:57)
[2024-07-23] MEDS: DESENEX/MITRAZOL/ZEASORB 1 APPLIC TOPICAL ×2 (08:44→20:35)
[2024-07-23] MEDS: ZETIA 10 MG PO (08:44)
[2024-07-23 08:53] LABS: Myeloperoxidase Antibody 0 AU/mL (0-19); Serine Protease-3, IgG 0 AU/mL (0-19)
[2024-07-23 09:32] LABS: Hematocrit 33.6 % (37.0-47.0); Hemoglobin 10.6 g/dL (12.0-16.0); Mean Corp Hgb Conc. 31.5 g/dL (33.0-37.0); Mean Corpuscular Hgb 26.4 pg (27.0-31.0); Mean Corpuscular Volume 83.6 fL (81.0-99.0); Mean Platelet Volume 9.6 fL (7.4-10.4); Platelet Count 73 10^3/uL (130-400); Red Blood Cell Count 4.02 10^6/uL (4.20-5.40); White Blood Cell Count 8.8 10^3/uL (4.8-10.8)
[2024-07-23 10:05] LABS: Blood Urea Nitrogen 55 mg/dl (7-17); Calcium 10.7 mg/dl (8.4-10.2); Carbon Dioxide 16 mmol/L (22-30); Chloride 108 mmol/L (98-107); Estimated Creatinine Clearance 21 ml/min; Glucose 89 mg/dl (70-99); Potassium 4.9 mmol/L (3.5-5.1); Sodium 132 mmol/L (135-145); eGFR 19.79
--- NOTE | 2024-07-23 10:25 | W.PN.HOSP.TC ---
Today's Communication/Plan
-
dc planning
wean O2
continue UTI abx for 1 more day
continue eliquis
PT/OT
needs SNF
Path pending
Assessment / Plan
Assessment / Plan
Echo: Normal left ventricular size and function. Normal regional wall motion. Mild concentric left ventricular hypertrophy. LV ejection fraction is 55-60% by visual assessment. Stage II diastolic dysfunction suggestive of abnormal relaxation and
increased filling pressures. Thickened mitral valve leaflets. Mitral annular calcification. Mild mitral stenosis. Peak/mean gradients across the mitral valve are 9/4 mmHg. There is at least mild mitral regurgitation which may have been
underestimated due to mitral annular calcification. Indexed LA volume is within normal range (15-34 mL/m2).
Trileaflet aortic valve. Thickened and calcified aortic valve with restricted leaflet motion. Moderate aortic stenosis. Peak/mean gradients across the aortic valve are 31/16 mmHg. Using an LVOT diameter of 2.0 cm, the aortic valve by the Continuity
equation is calculated at 1.0 cm2. Trace aortic regurgitation. Tricuspid valve opens normally. Moderate tricuspid regurgitation. Estimated pulmonary artery pressure of 64 mmHg. Assuming a right atrial pressure of 8 mmHg. Mildly dilated right atrium.
Enlarged right ventricular size. Normal right ventricular systolic function.
Since echocardiogram 04/10/2023, there is little change. There may be mild mitral stenosis and PA systolic pressure is increased slightly from 43 mmHg to 64 mmHg.
Assessment:
pre-renal MAURO on CKD3a:
- h/o renal transplant, cont Cellcept/Prograf. tacrolimus trough level 7.6 on 07/18
- Cr improving with IVFs; Cr 2.4 today
- cap IVF
- Bladder scans
- Nephrology following
L lower neck and upper chest wall mass with associated DVT:
-ideally we would check a CT chest and neck with IV contrast. Unfortunately the risk at this moment is too high with acute kidney injury in the setting of a renal transplant.
-MRI considered but patient has a metallic stapes implant from the 70s which is not MRI compatible.
-Non-contrast CT showed Large region of confluent lymphadenopathy in the left axilla measuring approximately 17.7 x 7.4 x 8.0 cm in size. Lymphadenopathy in the left supraclavicular region with the largest lymph node conglomeration measuring 3.8 x
2.9 cm. Lymphadenopathy to a lesser degree in the right supraclavicular region. Bulky lymphadenopathy in the mediastinum and bilateral hilar regions. Inflammatory fat stranding throughout the left breast with overlying skin thickening.
-s/p L axillary LN biopsy 07/22
-follow path
-continue Eliquis
Hyponatremia:
-likely due to hypotension and possibly a component of SIADH due to likely malignancy
-Na and Cr improved with IVF
-renal following
-Nephrology following
Elevated trop likely Non-ischemic myocardial injury
Hx of CAD
-denies CP
-ECG (read by me): NSR @ 70, R-axis dev, nl intervals, no acute ST/TW changes
-Trop 0.995 peak
-cardiology following
-continue IV Heparin - requires intensive monitoring of PTTs
-continue ASA/Statin
-Echo: as above
Metabolic Encephalopathy in setting of UTI
- TME resolved
- Culture with pansensitive E. Coli. Continue Rocephin, day 6/7
Ambulatory dysfunction with frequent falls: PT/OT. SNF recommended
DM2 with diabetic nephropathy and neuropathy: cont Lantus/SSI/accu- checks/diabetic diet. Cont Neurontin.
Chronic HFpEF
Chronic back pain, chronic opioid use with dependence: cont oxycodone
Essential hypertension: Cont Atenolol/Norvasc. ARB on hold with MAURO.
Iron deficiency anemia: cont Ferrous sulfate
Hyperlipidemia: cont Zetia/statin
Obesity due to excess calories
Peripheral arterial disease: Cont ASA/statin
Acute thrombocytopenia
- monitor counts
- Hematology following
Code: Full
Anticipated Discharge: > 48 hours
Subjective/Interval History
-
Date of Service: July 23, 2024
resting comfortably, periods of mild SOB
on 3L NC
Objective Data
-
Labs:
Laboratory Results
07/23/24
09:17
WBC 8.8
Hgb 10.6 L
Hct 33.6 L
Plt Count 73 L
Sodium 132 L
Potassium 4.9
Chloride 108 H
Carbon Dioxide 16 L
BUN 55 H
Creatinine 2.4 H
Glucose 89
Calcium 10.7 H
Vital Signs:
Vital Signs
Temp Pulse Resp BP Pulse Ox
97.8 F 74 20 93/59 94
07/23/24 07:30 07/23/24 08:32 07/23/24 07:30 07/23/24 08:32 07/23/24 07:30
I&O
07/22/24 07/23/24 07/24/24
06:59 06:59 06:59
Intake Total 1140 / 1140 378 / 378
Output Total 455 / 455 200 / 200 300 / 300
Balance 685 / 685 178 / 178 -300 / -300
Physical Exam
-
General: No Apparent Distress
HEENT: Normocephalic and Atraumatic
Respiratory: Negative Wheezes or Rales
Cardiac: Regular Rhythm and S1/S2
GI: Soft and Nontender
Musculoskeletal: Edema, Left Upper Extrem
Neuro: AO x 3
Psych: Calm
Data Reviewed
-
Total Time Spent with Patient (in minutes): 45
Labs: Labs Reviewed by me
[2024-07-23 11:44] LABS: Glucose - Point of Care 191 mg/dl (70-99)
--- NOTE | 2024-07-23 11:54 | W.PN.NEPH.PH ---
Today's Communication / Plan
-
follow BMP
Assessment/Plan
-
Impression:
MAURO
CKD 3b (1.7)
Renal transplant 12 years prior
Hyponatremia with sodium of 126
Change in mental status
SOB
Neck mass
Left upper extremity DVT
History of hypertension
History of diabetes
AFIB hx
CAD/PAD
Pulmonary hypertension
Aortic valvular stenosis
Ambulatory dysfunction with frequent falls
Positive troponin
Plan:
check US transplant reading
I would recommend for heparin gtt then maintenance eliquis 5mg po BID for DVT or else coumadin, unfortunately no robust data on eliquis/DVT/CKD4+
follow BMP
lasix today
stop amlodipine and atenolol
may need midodrine
await bx results
-
-
Date of Service: July 23, 2024
CC / HPI / ROS
-
Chief Complaint:
Acute kidney injury
Renal transplant
CKD stage IIIb
History of Present Illness:
MAURO/Cr stuck 2.4
Serum sodium stable at 132
Hemodynamically stable
Continues with mycophenolate and tacrolimus for renal transplant
on eliquis for UE DVT
Review of Systems:
No fevers
mild shortness of breath
wt is up, UOP not measured, required SC once
Labs
-
Labs:
WBC 8.8 10^3/uL (4.8-10.8) 07/23/24 09:17
RBC 4.02 10^6/uL (4.20-5.40) L 07/23/24 09:17
Hgb 10.6 g/dL (12.0-16.0) L 07/23/24 09:17
Hct 33.6 % (37.0-47.0) L 07/23/24 09:17
Plt Count 73 10^3/uL (130-400) L 07/23/24 09:17
Sodium 132 mmol/L (135-145) L 07/23/24 09:17
Potassium 4.9 mmol/L (3.5-5.1) 07/23/24 09:17
Chloride 108 mmol/L (98-107) H 07/23/24 09:17
Carbon Dioxide 16 mmol/L (22-30) L 07/23/24 09:17
BUN 55 mg/dl (7-17) H 07/23/24 09:17
Creatinine 2.4 mg/dL (0.6-1.0) H 07/23/24 09:17
eGFR 19.79 07/23/24 09:17
Glucose 89 mg/dl (70-99) 07/23/24 09:17
Calcium 10.7 mg/dl (8.4-10.2) H 07/23/24 09:17
Vmc-N-Cmfpjnbvmzw Pept > 65210 pg/ml 07/19/24 07:36
Albumin 2.9 g/dl (3.5-5.0) L 07/18/24 12:54
Physical Exam
-
Vital Signs:
Vital Signs
Temp Pulse Resp BP Pulse Ox
97.3 F 75 20 106/47 95
07/23/24 11:33 07/23/24 11:33 07/23/24 11:33 07/23/24 11:33 07/23/24 11:33
Cardiovascular:: Regular rate and rhythm
Respiratory:: Bilateral: Coarse
Lung Excursion:: Normal
Abdomen:: Nontender and Soft
Bowel Sounds:: Normal
Extremity Edema:: +3: Left: (UE)
[2024-07-23] MEDS: LASIX 40 MG IV (12:05)
[2024-07-23] MEDS: NOVOLOG FLEXPEN-LOW RESISTANCE 300 UNITS SC (12:05)
--- NOTE | 2024-07-23 12:13 | CM ---
Referrals sent through [facility]. Will await determinations and review with family.
Plan: Case management will continue to follow and assist with discharge planning. SNF upon finding a bed.
--- NOTE | 2024-07-23 12:39 | PTCARENOTE ---
Assumed care of pt from previous nurse. Pt denies pain. pt purewick working without issue. Pt is on tele running nsr. Pt sleeping on and off during shift. Pt lungs are diminished, pt sating 94% on 3L's, sob and redmond and at rest. pt call nevarez is
within reach, pt rings letty. will cont to monitor.
--- NOTE | 2024-07-23 14:37 | CM ---
Addendum entered by GALE Guido 07/23/24 14:45:
Patient per attending won't be stable for discharge until possibly Sunday. Will update admissions at [facility].
Original Note:
Received call from Tiffani in admissions at [facility] who stated that she will have a bed for patient tomorrow. Will update family. No auth will be needed.
Plan: Case management will continue to follow and assist with discharge planning. [facility] tomorrow. Will update attending.
[2024-07-23 16:49] LABS: Glucose - Point of Care 381 mg/dl (70-99)
[2024-07-23] MEDS: STERILE WATER FOR INJECTION 10 ML IV (17:15)
[2024-07-23] MEDS: ROCEPHIN 1000 MG IV (17:15)
[2024-07-23] MEDS: PROGRAF 1 MG PO (17:15)
[2024-07-23] MEDS: NOVOLOG FLEXPEN-LOW RESISTANCE 5 UNITS SC (17:16)
[2024-07-23] MEDS: ELIQUIS 5 MG PO (20:35)
[2024-07-23 21:42] LABS: Glucose - Point of Care 84 mg/dl (70-99)
[2024-07-23] MEDS: LIPITOR 10 MG PO (21:57)
[2024-07-23] MEDS: XALATAN OPHTHALMIC SOLUTION 1 DROP BOTH EYES (21:57)
[2024-07-24] VITALS (7 sets, daily range): BP systolic 97–116; BP diastolic 49–89; PULSE 69; O2SAT 94; BMI 38.8
[2024-07-24 03:23] LABS: Glucose - Point of Care 86 mg/dl (70-99)
[2024-07-24 07:49] LABS: Glucose - Point of Care 81 mg/dl (70-99)
[2024-07-24] MEDS: NOVOLOG FLEXPEN-LOW RESISTANCE SC ×3 (07:50→16:40)
[2024-07-24] MEDS: FEOSOL 325 MG PO (07:50)
[2024-07-24] MEDS: MYFORTIC DELAYED REL. 360 MG PO ×2 (07:50→21:52)
[2024-07-24] MEDS: VISBIOME 1 CAP PO (07:50)
[2024-07-24] MEDS: NEURONTIN 100 MG PO ×3 (07:50→21:52)
[2024-07-24] MEDS: ZETIA 10 MG PO (07:50)
[2024-07-24] MEDS: PROGRAF 2 MG PO (07:50)
[2024-07-24] MEDS: ELIQUIS 5 MG PO ×2 (07:51→21:52)
[2024-07-24] MEDS: ASPIR LOW (ENTERIC COATED) 81 MG PO (07:51)
[2024-07-24] MEDS: DESENEX/MITRAZOL/ZEASORB 1 APPLIC TOPICAL ×2 (07:51→21:50)
[2024-07-24] MEDS: LANTUS 0.13 UNITS SC (07:51)
[2024-07-24 11:00] LABS: Hematocrit 33.9 % (37.0-47.0); Hemoglobin 10.7 g/dL (12.0-16.0); Mean Corp Hgb Conc. 31.6 g/dL (33.0-37.0); Mean Corpuscular Hgb 26.4 pg (27.0-31.0); Mean Corpuscular Volume 83.7 fL (81.0-99.0); Mean Platelet Volume 9.6 fL (7.4-10.4); Platelet Count 69 10^3/uL (130-400); Red Blood Cell Count 4.05 10^6/uL (4.20-5.40); White Blood Cell Count 9.1 10^3/uL (4.8-10.8)
[2024-07-24 11:28] LABS: Blood Urea Nitrogen 58 mg/dl (7-17); Calcium 10.7 mg/dl (8.4-10.2); Carbon Dioxide 18 mmol/L (22-30); Chloride 107 mmol/L (98-107); Estimated Creatinine Clearance 20 ml/min; Glucose 86 mg/dl (70-99); Potassium 4.7 mmol/L (3.5-5.1); Sodium 130 mmol/L (135-145); eGFR 17.98
--- NOTE | 2024-07-24 11:53 | W.PN.NEPH.PH ---
Today's Communication / Plan
-
IVF
Assessment/Plan
-
Impression:
MAURO
CKD 3b (1.7)
Renal transplant 12 years prior
Hyponatremia with sodium of 126
Change in mental status
SOB
Neck mass
Left upper extremity DVT
History of hypertension
History of diabetes
AFIB hx
CAD/PAD
Pulmonary hypertension
Aortic valvular stenosis
Ambulatory dysfunction with frequent falls
Positive troponin
Bx c/w small cell lung CA
Plan:
tx US ok
maintenance eliquis 5mg po BID for DVT in CKD4
IVF NSS at 70ml/hr
watch BP, prn midodrine
follow BMP
oncology f/u
-
-
Date of Service: July 24, 2024
CC / HPI / ROS
-
Chief Complaint:
Acute kidney injury
Renal transplant
CKD stage IIIb
History of Present Illness:
MAURO/Cr worse 2.6
Serum sodium stable at 130
BP low
Continues with mycophenolate and tacrolimus for renal transplant
on eliquis for UE DVT
Review of Systems:
No fevers
mild shortness of breath
wt is up, UOP not measured, required SC once
Labs
-
Labs:
WBC 9.1 10^3/uL (4.8-10.8) 07/24/24 10:50
RBC 4.05 10^6/uL (4.20-5.40) L 07/24/24 10:50
Hgb 10.7 g/dL (12.0-16.0) L 07/24/24 10:50
Hct 33.9 % (37.0-47.0) L 07/24/24 10:50
Plt Count 69 10^3/uL (130-400) L 07/24/24 10:50
Sodium 130 mmol/L (135-145) L 07/24/24 10:49
Potassium 4.7 mmol/L (3.5-5.1) 07/24/24 10:49
Chloride 107 mmol/L (98-107) 07/24/24 10:49
Carbon Dioxide 18 mmol/L (22-30) L 07/24/24 10:49
BUN 58 mg/dl (7-17) H 07/24/24 10:49
Creatinine 2.6 mg/dL (0.6-1.0) H 07/24/24 10:49
eGFR 17.98 07/24/24 10:49
Glucose 86 mg/dl (70-99) 07/24/24 10:49
Calcium 10.7 mg/dl (8.4-10.2) H 07/24/24 10:49
Xzc-M-Rimqwjgnocl Pept > 09599 pg/ml 07/19/24 07:36
Albumin 2.9 g/dl (3.5-5.0) L 07/18/24 12:54
Physical Exam
-
Vital Signs:
Vital Signs
Temp Pulse Resp BP Pulse Ox
97.6 F 69 22 115/50 95
07/24/24 07:39 07/24/24 07:39 07/24/24 07:39 07/24/24 07:39 07/24/24 09:54
Cardiovascular:: Regular rate and rhythm
Respiratory:: Bilateral: Coarse
Lung Excursion:: Normal
Abdomen:: Nontender and Soft
Bowel Sounds:: Normal
Extremity Edema:: +2: Bilateral:
[2024-07-24 12:00] LABS: Glucose - Point of Care 85 mg/dl (70-99)
[2024-07-24] MEDS: NSS 1000 IV (12:44)
--- NOTE | 2024-07-24 12:52 | W.PN.ONC ---
Today's Communication / Plan
-
Agree with conversion to DOAC
Reviewed the pathology diagnosis with the patient and her son Jose. Called her Eddy but was unable to reach him
Therapeutic options unfortunately would exclude PD-L1 therapy given transplantation renal transplantation
Discussed consideration of carboplatin [employer] REPAIRER-16 pending performance status
May want to consider neurologic evaluation rule out [facility]
Physical therapy evaluation
Currently her performance status is likely to preclude systemic cytotoxic chemotherapy
Impression
Impression
Stage IV small cell lung carcinoma
Upper extremity thrombosis
No evidence of ORACLE CONSULTANT metastases on CT scan
Cochlear implant? Precluding MRI not noted on CT of the head
Generalized weakness
Mild confusion
History of renal transplantation
UTI with possible TME
HFpEF
Hyperlipidemia
Iron deficiency anemia
Subjective/Objective
Subjective/Objective
Wanda continues to be less mentally acute than her baseline. Reviewed with her the findings on pathology which suggest primary small cell lung carcinoma. She has no new complaints today but has continued generalized weakness without focality.
Vital Signs:
Vital Signs
Temp Pulse Resp BP Pulse Ox
97.5 F 64 20 110/57 96
07/24/24 11:27 07/24/24 11:27 07/24/24 11:27 07/24/24 11:27 07/24/24 11:27
Awake
Regular
Clear
Left upper extremity swelling
Skin breakdown on her heels suggest prolonged sedentary state
Lab Results:
Laboratory Data
WBC 9.1 10^3/uL (4.8-10.8) 07/24/24 10:50
Hgb 10.7 g/dL (12.0-16.0) L 07/24/24 10:50
Plt Count 69 10^3/uL (130-400) L 07/24/24 10:50
PT 14.9 Sec (11.4-14.6) H 07/18/24 13:29
INR 1.14 07/18/24 13:29
APTT 36.0 Sec (23.4-35.0) H 07/22/24 14:52
eGFR 17.98 07/24/24 10:49
--- NOTE | 2024-07-24 13:14 | VATNOTE ---
Midline dressing changed due to bio patch being saturated with blood. Noted pt. has required daily midline dressing changes.
--- NOTE | 2024-07-24 13:58 | CM ---
Spoke with Tiffani in admissions at [facility] who confirmed bed availability for patient upon medical clearance. She stated that she will not be in the office tomorrow, therefore her nursing supervisor fine grading will be in charge of admissions. When
patient is ready for transfer
# For report [phone]/ask for nursing supervisor fine grading and fax [phone]
Spoke with attending who stated that patient is not yet medically cleared.
Plan: Case management will continue to follow and assist with discharge planning. [facility] when medically stable to be discharged.
--- NOTE | 2024-07-24 14:25 | W.PN.HOSP.TC ---
Today's Communication/Plan
-
await Neuro evaluation for possible Lambert-Eaton in setting of stage 4 small cell
continue Eliquis
IVF per Renal
Assessment / Plan
Assessment / Plan
Echo: Normal left ventricular size and function. Normal regional wall motion. Mild concentric left ventricular hypertrophy. LV ejection fraction is 55-60% by visual assessment. Stage II diastolic dysfunction suggestive of abnormal relaxation and
increased filling pressures. Thickened mitral valve leaflets. Mitral annular calcification. Mild mitral stenosis. Peak/mean gradients across the mitral valve are 9/4 mmHg. There is at least mild mitral regurgitation which may have been
underestimated due to mitral annular calcification. Indexed LA volume is within normal range (15-34 mL/m2).
Trileaflet aortic valve. Thickened and calcified aortic valve with restricted leaflet motion. Moderate aortic stenosis. Peak/mean gradients across the aortic valve are 31/16 mmHg. Using an LVOT diameter of 2.0 cm, the aortic valve by the Continuity
equation is calculated at 1.0 cm2. Trace aortic regurgitation. Tricuspid valve opens normally. Moderate tricuspid regurgitation. Estimated pulmonary artery pressure of 64 mmHg. Assuming a right atrial pressure of 8 mmHg. Mildly dilated right atrium.
Enlarged right ventricular size. Normal right ventricular systolic function.
Since echocardiogram 04/10/2023, there is little change. There may be mild mitral stenosis and PA systolic pressure is increased slightly from 43 mmHg to 64 mmHg.
Assessment:
pre-renal MAURO on CKD3a:
- h/o renal transplant, cont Cellcept/Prograf. tacrolimus trough level 7.6 on 07/18
- Cr improving with IVFs; Cr 2.6 today
- cap IVF
- Bladder scans
- Nephrology following
L lower neck and upper chest wall mass with associated DVT:
-ideally we would check a CT chest and neck with IV contrast. Unfortunately the risk at this moment is too high with acute kidney injury in the setting of a renal transplant.
-MRI considered but patient has a metallic stapes implant from the 70s which is not MRI compatible.
-Non-contrast CT showed Large region of confluent lymphadenopathy in the left axilla measuring approximately 17.7 x 7.4 x 8.0 cm in size. Lymphadenopathy in the left supraclavicular region with the largest lymph node conglomeration measuring 3.8 x
2.9 cm. Lymphadenopathy to a lesser degree in the right supraclavicular region. Bulky lymphadenopathy in the mediastinum and bilateral hilar regions. Inflammatory fat stranding throughout the left breast with overlying skin thickening.
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
-continue Eliquis 5mg BID
Hyponatremia:
-likely due to hypotension and possibly a component of SIADH due to likely malignancy
-Na and Cr improved with IVF
-renal following
-Nephrology following
Generalized weakness
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
Elevated trop likely Non-ischemic myocardial injury
Hx of CAD
-denies CP
-ECG (read by me): NSR @ 70, R-axis dev, nl intervals, no acute ST/TW changes
-Trop 0.995 peak
-cardiology following
-continue ASA/Statin
-Echo: as above
Metabolic Encephalopathy in setting of UTI
- TME resolved
- Culture with pansensitive E. Coli. Continue Rocephin, day 7/
Ambulatory dysfunction with frequent falls: PT/OT. SNF recommended
DM2 with diabetic nephropathy and neuropathy: cont Lantus/SSI/accu- checks/diabetic diet. Cont Neurontin.
Chronic HFpEF
Chronic back pain, chronic opioid use with dependence: cont oxycodone
Essential hypertension: Cont Atenolol/Norvasc. ARB on hold with MAURO.
Iron deficiency anemia: cont Ferrous sulfate
Hyperlipidemia: cont Zetia/statin
Obesity due to excess calories
Peripheral arterial disease: Cont ASA/statin
Acute thrombocytopenia
- monitor counts, 73 to 69 in past 24 hours
- Hematology following
Code: Full
Anticipated Discharge: > 48 hours
Subjective/Interval History
-
Date of Service: July 24, 2024
feels more generally weak
poor appetite
Objective Data
-
Labs:
Laboratory Results
07/24/24 07/24/24
10:49 10:50
WBC 9.1
Hgb 10.7 L
Hct 33.9 L
Plt Count 69 L
Sodium 130 L
Potassium 4.7
Chloride 107
Carbon Dioxide 18 L
BUN 58 H
Creatinine 2.6 H
Glucose 86
Calcium 10.7 H
Vital Signs:
Vital Signs
Temp Pulse Resp BP Pulse Ox
97.5 F 64 20 110/57 96
07/24/24 11:27 07/24/24 11:27 07/24/24 11:27 07/24/24 11:27 07/24/24 11:27
I&O
07/23/24 07/24/24 07/25/24
06:59 06:59 06:59
Intake Total 378 / 378 240 / 240
Output Total 200 / 200 900 / 900
Balance 178 / 178 -660 / -660
Physical Exam
-
General: No Apparent Distress
HEENT: Normocephalic and Atraumatic
Respiratory: Negative Wheezes
Cardiac: Regular Rhythm and S1/S2
GI: Soft
Neuro: AO x 3
Psych: Calm
Data Reviewed
-
Total Time Spent with Patient (in minutes): 42
Labs: Labs Reviewed by me
[2024-07-24 14:47] LABS: Alpha 1 Globulin 0.51 g/dL (0.19-0.46); Alpha 2 Globulin 0.75 g/dL (0.48-1.05); Free Lambda Light Chains,Quant 93.04 mg/L (5.71-26.30); IgA 254 mg/dL (68-408); IgG 790 mg/dL (768-1632); IgM 146 mg/dL (35-263); Immunofixation Electrophoresis IFE Done; Kappa/Lambda Fr Light Ratio 1.05 (0.26-1.65); Total Protein-Electrophoresis 5.3 g/dL (6.3-8.2)
[2024-07-24] MEDS: ROCEPHIN 1000 MG IV (15:00)
[2024-07-24] MEDS: STERILE WATER FOR INJECTION 10 ML IV (15:02)
--- NOTE | 2024-07-24 15:26 | PN.CDI ---
CDI
- -
CDI:
Physician Documentation Request
Admit Date: 07/18/24 14:37
Dear Doctor Kwame,
Please review the following and provide your response in the progress notes.
Clinical Indicators:
- Wound note indicates:
- Stage 3 gluteal cleft pressure injury, POA
- Stage 1 bilateral heels pressure injury, POA
Physician documentation of the type and location of wounds is required for compliant documentation. Based on the above clinical findings and your assessment, please provide the following in your progress note:
1. Location of the ulcer/wound, including laterality.
2. Type (etiology) of ulcer/wound:
- Diabetic ulcer
- Arterial (ischemic) ulcer
- Venous stasis ulcer
- Pressure (decubitus) ulcer
- Other
Use of terms such as suspected, likely, concern for, or probable (associated with a specific diagnosis that is being evaluated, monitored, or treated as if it exists) are acceptable and can be coded in the inpatient setting, when documented at the
time of discharge.
Thank you,
William Dao RN
CDI Specialist
Please use your independent medical judgment in providing your response.
*Source: National Pressure Ulcer Advisory Panel (NPUAP)
[2024-07-24 16:36] LABS: Glucose - Point of Care 85 mg/dl (70-99)
--- NOTE | 2024-07-24 17:02 | CON.NEURO ---
Neuro Assessment/Plan
Assessment
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
ordered VGCC type P/Q antibody and EMG, texted Dr Marie to ask if he does the high frequency rep stim study
3,4-DAP for symptomatic tx doesn't appear on hospital formulary
IVIG or plasmapheresis could be considered as patient does have a dialysis fistula, however it does not affect the underlying issue as this is paraneoplastic to SCLC
Consultation
Order
Date of Consultation: 07/24/24
Requesting Provider: Kwame Mast
Reason for Consult: ?Eaton Lambert
Subjective/Objective
Subjective Data
Date of Service: July 24, 2024
83-year-old female with past medical history of seizures, pulmonary hypertension, CHF, CAD, hypertension hyperlipidemia, renal failure status post kidney transplant over 10 years ago, diabetes presenting to the emergency department today with
concerns of altered mental status and increased falling over the past week. She was found to have stage IV SCLC, mets to axillary lymph nodes, and occlusive thrombus left subclavian and axillary veins
patient admits to generalized weakness, eye drooping, intermittent double vision, dry mouth
Objective Data
Vital Signs
Temp Pulse Resp BP Pulse Ox
36.4 C 63 22 107/56 96
07/24/24 15:41 07/24/24 15:41 07/24/24 15:41 07/24/24 15:41 07/24/24 15:41
Lab Results
07/24/24 10:50
07/24/24 10:49
PT 14.9 Sec (11.4-14.6) H 07/18/24 13:29
INR 1.14 07/18/24 13:29
APTT 36.0 Sec (23.4-35.0) H 07/22/24 14:52
Sodium 130 mmol/L (135-145) L 07/24/24 10:49
Potassium 4.7 mmol/L (3.5-5.1) 07/24/24 10:49
BUN 58 mg/dl (7-17) H 07/24/24 10:49
Glucose 86 mg/dl (70-99) 07/24/24 10:49
Calcium 10.7 mg/dl (8.4-10.2) H 07/24/24 10:49
Mdu-Z-Fclglctevfh Pept > 39257 pg/ml 07/19/24 07:36
Patient Allergies
FRED Inhibitors [Fred Inhibitors] Allergy (Verified 07/18/24 08:58)
COUGH
levofloxacin [From Levaquin] Allergy (Verified 07/18/24 08:58)
IV levaquin-Itching
Penicillins Allergy (Verified 07/18/24 08:58)
Rash
shellfish derived Allergy (Verified 07/18/24 08:58)
SHRIMP/CRAB DIARRHEA IMMEDIATE
Physical Exam
-
lethargic, mildly dysarthric,
LUE/LE emema
b/l UE 4/5 strength, does appear to get stronger after a few seconds of exercise
b/l LE 2/5 strength
DTR absent
Medications
-
Active Medications
Generic Name Dose Route Start Last Admin
Trade Name Freq PRN Reason Stop Dose Admin
Acetaminophen 650 mg 07/18/24 16:13 07/21/24 13:08
Acetaminophen 325 Mg Tablet PO 08/15/24 16:12 650 mg
Q4HPRN PRN Administration
mild pain/temp > 100.4 F
Apixaban 5 mg 07/23/24 20:00 07/24/24 07:51
Apixaban (Eliquis) 5 Mg Tablet PO 08/20/24 19:59 5 mg
BID VAMSI Administration
Aspirin 81 mg 07/19/24 08:00 07/24/24 07:51
Aspirin 81 Mg (Enteric Coated) Tablet PO 08/16/24 07:59 81 mg
DAILY VAMSI Administration
Atorvastatin Calcium 10 mg 07/18/24 22:00 07/23/24 21:57
Atorvastatin (Lipitor) 10 Mg Tablet PO 08/15/24 21:59 10 mg
HS VAMSI Administration
Dextrose 12.5 grams 07/18/24 16:13
Dextrose 50% (0.5 Grams/Ml) 50 Ml Syringe IV 08/15/24 16:12
[id number] PRN
hypoglycemia
Protocol
Ezetimibe 10 mg 07/19/24 08:00 07/24/24 07:50
Ezetimibe (Zetia) 10 Mg Tablet PO 08/16/24 07:59 10 mg
DAILY VAMSI Administration
Ferrous Sulfate 325 mg 07/19/24 08:00 07/24/24 07:50
Ferrous Sulfate 325 Mg Tablet PO 08/16/24 07:59 325 mg
DAILY VAMSI Administration
Gabapentin 100 mg 07/18/24 16:13 07/24/24 16:06
Gabapentin 100 Mg Capsule PO 08/15/24 16:12 100 mg
TID VAMSI Administration
Glucagon 1 mg 07/18/24 16:13
Glucagon 1 Mg Vial IM 08/15/24 16:12
PRN PRN
hypoglycemia
Protocol
Insulin Glargine 13 units/ 0.13 mls @ 0 mls/hr 07/18/24 20:00 07/24/24 07:51
Device SC 08/15/24 19:59 0.13 mls
BID VAMSI Administration
As Directed
Sodium Chloride 1,000 mls @ 70 mls/hr 07/24/24 12:15 07/24/24 12:44
Nss IV 1,000 mls
.[id number] VAMSI Administration
Insulin Aspart 0 units 07/18/24 16:30 07/24/24 16:40
Insulin Aspart Low Resistance 300 Units/3 Ml Pen.Injctr SC 08/15/24 16:29 Not Given
AC VAMSI
Protocol
Lactobacillus/Bifidobacterium 1 cap 07/19/24 08:00 07/24/24 07:50
Lactobac/Bifidobac (Visbiome) PO 08/16/24 07:59 1 cap
DAILY VAMSI Administration
Latanoprost 0 drop 07/18/24 22:00 07/23/24 21:57
Latanoprost 0.005% (Ophthalmic Solution) 2.5 Ml Bottle BOTH EYES 08/15/24 21:59 1 drop
HS VAMSI Administration
Miconazole Nitrate 0 applic 07/18/24 20:00 07/24/24 07:51
Miconazole Powder Bottle TOPICAL 08/15/24 19:59 1 applic
BID VAMSI Administration
Midodrine 5 mg 07/24/24 12:12
Midodrine 5 Mg Tablet PO 08/21/24 12:11
Q4HPRN PRN
SBP<95
Mycophenolate Sodium 360 mg 07/18/24 20:00 07/24/24 07:50
Mycophenolic Acid [address] Tablet (Non Form) PO 360 mg
BID VAMSI Administration
Oxycodone HCl 5 mg 07/18/24 16:13
Oxycodone 5 Mg Regular Release Tablet PO 08/01/24 16:12
Q4HPRN PRN
severe pain
Sodium Chloride 0 flush 07/18/24 17:00 07/22/24 16:31
Sodium Chloride 0.9% (Flush) Syringe IV 08/15/24 16:59 1 flush
PER PROTOCOL VAMSI Administration
Tacrolimus 2 mg 07/19/24 08:00 07/24/24 07:50
Tacrolimus 1 Mg Capsule PO 08/16/24 07:59 2 mg
DAILY VAMSI Administration
Tacrolimus 1 mg 07/18/24 18:00 07/23/24 17:15
Tacrolimus 1 Mg Capsule PO 08/15/24 17:59 1 mg
QPM VAMSI Administration
Home Medications
�Medication �Instructions �Recorded
aspirin 81 mg tablet,delayed 81 mg PO DAILY Blood clot 07/03/14
release prevention/tx
ezetimibe 10 mg tablet 10 mg PO DAILY High cholesterol 07/03/14
ferrous sulfate 325 mg (65 mg 325 mg PO DAILY Supplement 07/20/17
iron) tablet (FeroSul)
gabapentin 100 mg capsule 100 mg PO TID Pain 07/20/17
atenolol 25 mg tablet 50 mg PO QPM Blood pressure 03/03/22
atenolol 50 mg tablet 100 mg PO DAILY Blood pressure 03/03/22
mycophenolate sodium 180 mg 360 mg PO BID Transplant 03/03/22
tablet,delayed release (Myfortic)
atorvastatin 10 mg tablet 10 mg PO HS High cholesterol 03/04/22
insulin aspart U-100 100 unit/mL 7 - 9 sliding scale dose SC AC 03/05/22
(3 mL) subcutaneous pen (Novolog Diabetes
FlexPen U-100 Insulin aspart)
Bifidobacterium infantis 4 mg 4 mg PO DAILY Gastrointestinal 07/18/24
capsule (Align (B.infantis)) Issue
amlodipine 10 mg tablet 5 mg PO DAILY Blood Pressure 07/18/24
insulin degludec 100 unit/mL (3 13 unit SC BID Diabetes 07/18/24
mL) subcutaneous pen (Tresiba
FlexTouch U-100 insulin)
latanoprost 0.005 % eye drops 1 drp BOTH EYES HS Eye Condition 07/18/24
losartan 50 mg tablet 50 mg PO DAILY Blood Pressure 07/18/24
oxycodone 5 mg tablet 5 mg PO Q4HPRN PRN severe pain 07/18/24
tacrolimus 1 mg capsule, 1 mg PO QPM Transplant 07/18/24
immediate-release (Prograf)
tacrolimus 1 mg capsule, 2 mg PO DAILY Transplant 07/18/24
immediate-release (Prograf)
[2024-07-24] MEDS: PROGRAF 1 MG PO (17:16)
[2024-07-24 21:29] LABS: Glucose - Point of Care 76 mg/dl (70-99)
[2024-07-24] MEDS: LANTUS SC (21:30)
[2024-07-24] MEDS: XALATAN OPHTHALMIC SOLUTION 2 DROP BOTH EYES (21:51)
[2024-07-24] MEDS: LIPITOR 10 MG PO (21:52)
[2024-07-25] VITALS (7 sets, daily range): BP systolic 95–153; BP diastolic 42–71; BMI 39.0
[2024-07-25] MEDS: NSS 1000 IV ×2 (02:53→18:31)
[2024-07-25 03:07] LABS: Glucose - Point of Care 92 mg/dl (70-99)
[2024-07-25 05:05] LABS: Hematocrit 33.6 % (37.0-47.0); Hemoglobin 10.3 g/dL (12.0-16.0); Mean Corp Hgb Conc. 30.7 g/dL (33.0-37.0); Mean Corpuscular Hgb 26.6 pg (27.0-31.0); Mean Corpuscular Volume 86.8 fL (81.0-99.0); Mean Platelet Volume 10.4 fL (7.4-10.4); Platelet Count 61 10^3/uL (130-400); Red Blood Cell Count 3.87 10^6/uL (4.20-5.40); Red Cell Dist. Width 18.2 % (11.5-14.5); White Blood Cell Count 9.9 10^3/uL (4.8-10.8)
[2024-07-25 05:23] LABS: Calcium 10.4 mg/dl (8.4-10.2)
[2024-07-25 05:24] LABS: Blood Urea Nitrogen 59 mg/dl (7-17); Calcium 10.5 mg/dl (8.4-10.2); Carbon Dioxide 18 mmol/L (22-30); Chloride 109 mmol/L (98-107); Estimated Creatinine Clearance 18 ml/min; Glucose 80 mg/dl (70-99); Potassium 4.8 mmol/L (3.5-5.1); Sodium 132 mmol/L (135-145); eGFR 16.45
[2024-07-25 05:34] LABS: Intact PTH 89.1 pg/ml (13.6-85.8)
[2024-07-25 07:16] LABS: Glucose - Point of Care 84 mg/dl (70-99)
[2024-07-25] MEDS: NOVOLOG FLEXPEN-LOW RESISTANCE SC ×3 (09:02→17:09)
--- NOTE | 2024-07-25 09:07 | W.PN.ONC2 ---
Documented by User: LUIZA Allen 07/25/24 12:33
Today's Communication / Plan
-
.
Impression
Impression
Stage IV small cell lung carcinoma
Upper extremity thrombosis
No evidence of [employer] metastases on CT scan
Cochlear implant? Precluding MRI
History of renal transplantation
UTI with possible TME
HFpEF
Iron deficiency anemia
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
acute thrombocytopenia -heparin gtt transitioned to DOAC
Plan
Plan
primary service working on getting 3,4 DAP for 1st line treatment of Eaton Lambert myasthenia syndrome as recommended by neurology
CT head w/o contrast
on DOAC, cautions anticoagulation, antiplatelets, and NSAIDs with platelet <50,000. check HIT, off heparin since 07/22
check fibrinogen, ddimer
check TLS labs daily -BMP, phos, LDH, uric acid
Dr. Head will continue [facility] conversation with pt family, concern that PS and co-morbidities may preclude safe initiation of palliative systemic therapy.
Mgmt of CKD and renal transplant per nephrology
Subjective/Objective
Subjective
SOB with conversation and moving in bed
denies pain
Vital Signs:
Vital Signs
Temp Pulse Resp BP Pulse Ox
97.6 F 73 20 111/53 94
07/25/24 07:49 07/25/24 07:49 07/25/24 07:49 07/25/24 07:49 07/25/24 07:49
Lab Results:
Laboratory Data
WBC 9.9 10^3/uL (4.8-10.8) 07/25/24 04:40
Hgb 10.3 g/dL (12.0-16.0) L 07/25/24 04:40
Plt Count 61 10^3/uL (130-400) L 07/25/24 04:40
PT 14.9 Sec (11.4-14.6) H 07/18/24 13:29
INR 1.14 07/18/24 13:29
APTT 36.0 Sec (23.4-35.0) H 07/22/24 14:52
eGFR 16.45 07/25/24 04:41
Physical Exam
Integ DTI sacrum
HEENT: Moist Mucous Membranes; No Jaundice
Cardiology: Normal Sinus Rhythm
Pulmonary: Other (diminished)
GI: Soft (obese)
Extremities: Pulses Present and Edema

Documented by User: Mikal Head MD 07/25/24 13:10
Plan
Plan
primary service working on getting 3,4 DAP for 1st line treatment of Eaton Lambert myasthenia syndrome as recommended by neurology
CT head w/o contrast
on DOAC, cautions anticoagulation, antiplatelets, and NSAIDs with platelet <50,000. check HIT, off heparin since 07/22
check fibrinogen, ddimer
check TLS labs daily -BMP, phos, LDH, uric acid
Dr. Head will continue [facility] conversation with pt family, concern that PS and co-morbidities may preclude safe initiation of palliative systemic therapy.
Mgmt of CKD and renal transplant per nephrology
Agree with above assessment. I did speak with her , and he is indicated that they had discussed advanced life support in the past and she did not wish to be intubated. I have changed her CODE STATUS. We will continue on all other
supportive measures. TP.
--- NOTE | 2024-07-25 09:25 | W.PN.HOSP.TC ---
Today's Communication/Plan
-
IVF per Nephrology; noted Cr 2.8
CT head
HIT panel for low platelets
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
Assessment / Plan
Assessment / Plan
Echo: Normal left ventricular size and function. Normal regional wall motion. Mild concentric left ventricular hypertrophy. LV ejection fraction is 55-60% by visual assessment. Stage II diastolic dysfunction suggestive of abnormal relaxation and
increased filling pressures. Thickened mitral valve leaflets. Mitral annular calcification. Mild mitral stenosis. Peak/mean gradients across the mitral valve are 9/4 mmHg. There is at least mild mitral regurgitation which may have been
underestimated due to mitral annular calcification. Indexed LA volume is within normal range (15-34 mL/m2).
Trileaflet aortic valve. Thickened and calcified aortic valve with restricted leaflet motion. Moderate aortic stenosis. Peak/mean gradients across the aortic valve are 31/16 mmHg. Using an LVOT diameter of 2.0 cm, the aortic valve by the Continuity
equation is calculated at 1.0 cm2. Trace aortic regurgitation. Tricuspid valve opens normally. Moderate tricuspid regurgitation. Estimated pulmonary artery pressure of 64 mmHg. Assuming a right atrial pressure of 8 mmHg. Mildly dilated right atrium.
Enlarged right ventricular size. Normal right ventricular systolic function.
Since echocardiogram 04/10/2023, there is little change. There may be mild mitral stenosis and PA systolic pressure is increased slightly from 43 mmHg to 64 mmHg.
Assessment:
pre-renal MAURO on CKD3a:
- h/o renal transplant, cont Cellcept/Prograf. tacrolimus trough level 7.6 on 07/18
- Cr 2.8 today despite IVF
- Bladder scans
- Nephrology following
L lower neck and upper chest wall mass with associated DVT:
-ideally we would check a CT chest and neck with IV contrast. Unfortunately the risk at this moment is too high with acute kidney injury in the setting of a renal transplant.
-MRI considered but patient has a metallic stapes implant from the 70s which is not MRI compatible.
-Non-contrast CT showed Large region of confluent lymphadenopathy in the left axilla measuring approximately 17.7 x 7.4 x 8.0 cm in size. Lymphadenopathy in the left supraclavicular region with the largest lymph node conglomeration measuring 3.8 x
2.9 cm. Lymphadenopathy to a lesser degree in the right supraclavicular region. Bulky lymphadenopathy in the mediastinum and bilateral hilar regions. Inflammatory fat stranding throughout the left breast with overlying skin thickening.
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
-continue Eliquis 5mg BID
Generalized weakness
- in setting of stage 4 small cell cancer
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
- Neurology following; EMG being discussed
- voltage-gated calcium channel type P/Q ab pending
- options include IVIG vs Plasmapheresis. Mestinon may help. Overall treating underlying cancer is paramount if able. 3-4 DAP also possible.
- PT/OT - SNF
Hyponatremia:
-likely due to hypotension and possibly a component of SIADH due to likely malignancy
-Na and Cr improved with IVF
-renal following
-Nephrology following
Elevated trop likely Non-ischemic myocardial injury
Hx of CAD
-denies CP
-ECG (read by me): NSR @ 70, R-axis dev, nl intervals, no acute ST/TW changes
-Trop 0.995 peak
-cardiology following
-continue ASA/Statin
-Echo: as above
Metabolic Encephalopathy in setting of UTI
- TME resolved
- Culture with pansensitive E. Coli. completed 7 day Rocephin course.
Ambulatory dysfunction with frequent falls: PT/OT. SNF recommended
DM2 with diabetic nephropathy and neuropathy: cont Lantus/SSI/accu- checks/diabetic diet. Cont Neurontin.
Chronic HFpEF
Chronic back pain, chronic opioid use with dependence: cont oxycodone
Essential hypertension: continue Atenolol/Norvasc. ARB on hold with MAURO.
Iron deficiency anemia: continue Ferrous sulfate
Hyperlipidemia: continue Zetia/statin
Obesity due to excess calories
Peripheral arterial disease: continue ASA/statin
Acute thrombocytopenia
- monitor counts, 73 to 61
- Hematology following
- HIT panel
Stage 3 gluteal cleft pressure injury, POA
Stage 1 bilateral heels pressure injury, POA
- continue wound care
DVT ppx: Eliquis
Code: Full
Anticipated Discharge: > 48 hours
Subjective/Interval History
-
Date of Service: July 25, 2024
reports some SOB. appetite remains poor
Objective Data
-
Labs:
Laboratory Results
07/25/24 07/25/24 07/25/24
04:40 04:41 04:41
WBC 9.9
Hgb 10.3 L
Hct 33.6 L
Plt Count 61 L
Sodium 132 L
Potassium 4.8
Chloride 109 H
Carbon Dioxide 18 L
BUN 59 H
Creatinine 2.8 H
Glucose 80
Calcium 10.5 H 10.4 H
Vital Signs:
Vital Signs
Temp Pulse Resp BP Pulse Ox
97.6 F 73 20 111/53 94
07/25/24 07:49 07/25/24 07:49 07/25/24 07:49 07/25/24 07:49 07/25/24 07:49
I&O
07/24/24 07/25/24 07/26/24
06:59 06:59 06:59
Intake Total 240 / 240 520 / 520
Output Total 900 / 900 200 / 200
Balance -660 / -660 320 / 320
Physical Exam
-
General: Appears Chronically Ill
HEENT: Normocephalic and Atraumatic
Respiratory: Negative Wheezes
Cardiac: Regular Rhythm and S1/S2
Genito-urinary: No Costovertebral Tender
Neuro: AO x 3
Psych: Calm
Data Reviewed
-
Total Time Spent with Patient (in minutes): 45
Labs: Labs Reviewed by me
[2024-07-25] MEDS: ELIQUIS 5 MG PO ×2 (09:41→21:53)
[2024-07-25] MEDS: ZETIA 10 MG PO (09:41)
[2024-07-25] MEDS: PROGRAF 2 MG PO (09:41)
[2024-07-25] MEDS: ASPIR LOW (ENTERIC COATED) 81 MG PO (09:42)
[2024-07-25] MEDS: FEOSOL 325 MG PO (09:42)
[2024-07-25] MEDS: NEURONTIN 100 MG PO ×3 (09:42→21:53)
[2024-07-25] MEDS: MYFORTIC DELAYED REL. 360 MG PO ×2 (09:42→21:53)
[2024-07-25] MEDS: VISBIOME 1 CAP PO (09:42)
[2024-07-25] MEDS: LANTUS SC ×2 (09:43→21:22)
[2024-07-25 12:03] LABS: Glucose - Point of Care 89 mg/dl (70-99)
--- NOTE | 2024-07-25 13:50 | W.PN.NEPH.PH ---
Today's Communication / Plan
-
follow labs and cont IVF
Assessment/Plan
-
Impression:
MAURO
CKD 3b (1.7)
Renal transplant 12 years prior
Hyponatremia with sodium of 126
Change in mental status
SOB
Neck mass
Left upper extremity DVT
History of hypertension
History of diabetes
AFIB hx
CAD/PAD
Pulmonary hypertension
Aortic valvular stenosis
Ambulatory dysfunction with frequent falls
Positive troponin
Bx c/w small cell lung CA
Plan:
MAURO- cr cont to rise at 2.8, UOP not accurate, bladder scan 292cc
tx US ok, Tac level acceptable
noted poor po intake, cont IVF
maintenance eliquis 5mg po BID for DVT in CKD4
watch BP, prn midodrine
mild hypercalcemia-PTH known h/o SHPTH, PTHrP pending, if worsens consider Aredia
follow BMP
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
oncology reviewing [facility] with family of stage 4 small cell lung ca
d/w primary and onc
-
-
Date of Service: July 25, 2024
CC / HPI / ROS
-
Chief Complaint:
Acute kidney injury
Renal transplant
CKD stage IIIb
History of Present Illness:
MAURO/Cr worse 2.8
Serum sodium stable at 132
BP soft, alfonso high corrected >11
Continues with mycophenolate and tacrolimus for renal transplant
on eliquis for UE DVT
Review of Systems:
No fevers
confused and unable to provide history
wt is up, UOP not measured, required SC once
Labs
-
Labs:
WBC 9.9 10^3/uL (4.8-10.8) 05/23/25 04:40
RBC 3.87 10^6/uL (4.20-5.40) L 07/25/24 04:40
Hgb 10.3 g/dL (12.0-16.0) L 07/25/24 04:40
Hct 33.6 % (37.0-47.0) L 07/25/24 04:40
Plt Count 61 10^3/uL (130-400) L 07/25/24 04:40
Sodium 132 mmol/L (135-145) L 07/25/24 04:41
Potassium 4.8 mmol/L (3.5-5.1) 07/25/24 04:41
Chloride 109 mmol/L (98-107) H 07/25/24 04:41
Carbon Dioxide 18 mmol/L (22-30) L 07/25/24 04:41
BUN 59 mg/dl (7-17) H 07/25/24 04:41
Creatinine 2.8 mg/dL (0.6-1.0) H 07/25/24 04:41
eGFR 16.45 07/25/24 04:41
Glucose 80 mg/dl (70-99) 07/25/24 04:41
Calcium 10.4 mg/dl (8.4-10.2) H 07/25/24 04:41
Calcium 10.5 mg/dl (8.4-10.2) H 07/25/24 04:41
Phosphorus 4.0 mg/dl (2.5-4.5) 07/25/24 04:41
Til-X-Bujfuayerwa Pept > 81217 pg/ml 07/19/24 07:36
Albumin 2.9 g/dl (3.5-5.0) L 07/18/24 12:54
Physical Exam
-
Vital Signs:
Vital Signs
Temp Pulse Resp BP Pulse Ox
97.5 F 74 20 107/42 92
07/25/24 11:20 07/25/24 11:20 07/25/24 11:20 07/25/24 11:20 07/25/24 11:20
Cardiovascular:: Regular rate and rhythm
Respiratory:: Bilateral: Coarse
Lung Excursion:: Normal
Abdomen:: Nontender and Soft
Bowel Sounds:: Normal
Extremity Edema:: +2: Bilateral:
Villatoro Catheter: No
[2024-07-25 14:21] LABS: LDH 1101 U/L (120-246)
[2024-07-25] MEDS: MESTINON 60 MG PO ×3 (14:42→21:53)
[2024-07-25] MEDS: DESENEX/MITRAZOL/ZEASORB 1 APPLIC TOPICAL ×2 (14:42→21:52)
--- NOTE | 2024-07-25 15:27 | CM ---
MD requested assistance with completing forms for a medication that needs to be ordered from the soft sugar cutter.
Spoke with spouse, he signed forms.
Spouse has lost the prescription insurance cards and is having difficulty getting new cards.
TC to patients pharmacy and requested prescription plan ID numbers.
Rx insurance: [employer], ID# [id number], GR# [id number], BIN# [id number], PCN: [id number].
Copies of primary and secondary health insurance provided to pharmacist.
--- NOTE | 2024-07-25 15:41 | W.PN.NEURO.1 ---
Today's Communication / Plan
-
limited EMG right median APB rep stim 33 hz showed 159% increment from first to 3rd stimulation (>100% confirms Eaton Lambert)
3,4-DAP ordered, [facility] paperwork filled out and sent. ordered stat - dining services manager will send 30 day supply stat while checking to see if prior auth is needed
Neuro Assessment/Plan
Assessment
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
VGCC type P/Q antibody sent 07/25 to [facility], it is run every Sunday
limited EMG right median APB rep stim 33 hz showed 159% increment from first to 3rd stimulation (>100% confirms Eaton Lambert)
3,4-DAP ordered, [facility] paperwork filled out and sent. ordered stat - dining services manager will send 30 day supply stat while checking to see if prior auth is needed
IVIG or plasmapheresis could be considered as patient does have a dialysis fistula, however it does not affect the underlying issue as this is paraneoplastic to SCLC
Subjective/Objective
Subjective Data
Date of Service: July 25, 2024
generalized weakness persists
Objective Data
Vital Signs
Temp Pulse Resp BP Pulse Ox
36.5 C 66 20 112/56 98
07/25/24 15:35 07/25/24 15:35 07/25/24 15:35 07/25/24 15:35 07/25/24 15:35
Lab Results
07/25/24 04:40
07/25/24 04:41
PT 14.9 Sec (11.4-14.6) H 07/18/24 13:29
INR 1.14 07/18/24 13:29
APTT 36.0 Sec (23.4-35.0) H 07/22/24 14:52
Sodium 132 mmol/L (135-145) L 07/25/24 04:41
Potassium 4.8 mmol/L (3.5-5.1) 07/25/24 04:41
BUN 59 mg/dl (7-17) H 07/25/24 04:41
Glucose 80 mg/dl (70-99) 07/25/24 04:41
Calcium 10.4 mg/dl (8.4-10.2) H 07/25/24 04:41
Calcium 10.5 mg/dl (8.4-10.2) H 07/25/24 04:41
Phosphorus 4.0 mg/dl (2.5-4.5) 07/25/24 04:41
Olm-V-Ofiermdbqhe Pept > 41516 pg/ml 07/19/24 07:36
Patient Allergies
FRED Inhibitors [Fred Inhibitors] Allergy (Verified 07/18/24 08:58)
COUGH
levofloxacin [From Levaquin] Allergy (Verified 07/18/24 08:58)
IV levaquin-Itching
Penicillins Allergy (Verified 07/18/24 08:58)
Rash
shellfish derived Allergy (Verified 07/18/24 08:58)
SHRIMP/CRAB DIARRHEA IMMEDIATE
Physical Exam
-
lethargic, mildly dysarthric,
LUE/LE edema
b/l UE 4/5 strength, does appear to get stronger after a few seconds of exercise
b/l LE 2/5 strength
DTR absent
[2024-07-25 15:54] LABS: Fibrinogen 305 MG/DL (199-459)
[2024-07-25 15:56] LABS: D-Dimer 2.57 ug/mlFEU (0.00-0.50)
[2024-07-25] MEDS: ZYLOPRIM 100 MG PO (15:58)
[2024-07-25] MEDS: ELITEK 50 MG IV (15:59)
--- NOTE | 2024-07-25 16:34 | W.PN.UPDATE ---
Update Note
Progress Note Update
Data reviewed, patient seen, Cristian at bedside.
Patient recognized me though unable to provide any insight regarding her current hospitalization or diagnoses.
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
We spoke of quality of life versus quantity of life. He understands that her performance status is extremely poor and that any treatment would be fraught with a difficult outcome, if treatment is even offered.
He stated he did not want any heroics though was uncertain if a DNR order was in place. I reviewed with nursing and a 'limited DNR' order is in place which states no CPR nor intubation. I made it clear that should she sustain a cardiopulmonary
arrest, her prognosis would be more dismal and that the best they could hope for was her current situation which is not satisfactory to him or family.
Should she develop progressive renal failure and loss of her transplant function, she would unfortunately not be a candidate to resume dialysis in her current state.
He asked what I would do knowing Jade 20-25 years, and I suggested keeping her comfortable. He will confer with his sons. Hopefully all questions were answered to his satisfaction.
Total time multiple encounters today, 43 minutes
[2024-07-25 17:03] LABS: Glucose - Point of Care 100 mg/dl (70-99)
[2024-07-25] MEDS: PROGRAF 1 MG PO (18:30)
[2024-07-25 20:14] LABS: Uric Acid 10.9 mg/dl (2.5-6.2)
[2024-07-25 21:16] LABS: Glucose - Point of Care 96 mg/dl (70-99)
[2024-07-25] MEDS: XALATAN OPHTHALMIC SOLUTION 2 DROP BOTH EYES (21:52)
[2024-07-25] MEDS: MELATONIN 5 MG PO (21:53)
[2024-07-25] MEDS: LIPITOR 10 MG PO (21:53)
[2024-07-25] MEDS: MUCINEX 600 MG PO (21:53)
[2024-07-25 22:32] LABS: COVID-19 Antigen Negative (Negative)
[2024-07-25 23:08] LABS: Glucose - Point of Care 115 mg/dl (70-99)
--- NOTE | 2024-07-25 23:20 | W.PN.UPDATE ---
Update Note
Progress Note Update
~ 2300 Rapid response called. Pt w/increased SOB, hypoxic, O2 sat 60's on 2L, placed on 15L NRB O2 sat 97%. Started on BIPAP 02/06. Ordered CXR, ABG, Lasix 20 mg IV x 1. Patient transferred to IMU.
Spoke with patient's , updated on rapid response and transfer to IMU for higher level of care. Patient's confirmed code status, DNR, no CPR and no intubation.
[2024-07-25 23:27] LABS: Venous Blood Gas B.E. -14.5 mmol/L (-4 to +4); Venous Blood Gas HCO3 15.4 mmol/L (22-27); Venous Blood Gas O2 Sat % 88.3 %; Venous Blood Gas pCO2 53 mmHg (35-48); Venous Blood Gas pO2 59 mmHg (30-50)
[2024-07-25 23:30] LABS: Venous Blood Gas pH 7.07 (7.32-7.43)
[2024-07-25 23:31] LABS: Hematocrit 34.6 % (37.0-47.0); Hemoglobin 10.6 g/dL (12.0-16.0); Mean Corp Hgb Conc. 30.6 g/dL (33.0-37.0); Mean Corpuscular Hgb 26.7 pg (27.0-31.0); Mean Corpuscular Volume 87.2 fL (81.0-99.0); Mean Platelet Volume 10.1 fL (7.4-10.4); Platelet Count 73 10^3/uL (130-400); Red Blood Cell Count 3.97 10^6/uL (4.20-5.40); Red Cell Dist. Width 18.4 % (11.5-14.5); White Blood Cell Count 18.5 10^3/uL (4.8-10.8)
[2024-07-25 23:38] LABS: Blood Urea Nitrogen 58 mg/dl (7-17); Calcium 10.4 mg/dl (8.4-10.2); Carbon Dioxide 15 mmol/L (22-30); Chloride 110 mmol/L (98-107); Estimated Creatinine Clearance 18 ml/min; Glucose 137 mg/dl (70-99); Potassium 5.5 mmol/L (3.5-5.1); Sodium 133 mmol/L (135-145); eGFR 16.45
--- NOTE | 2024-07-25 23:59 | RR ---
Rapid response called at approximately 2300. Patient was desating on 2LNC down to the 60's. Oxygen increased with no improvement and rapid response was called. Patient placed on nonrebreather showing improvement. Patient transferred to IMU. Report
given to DAKOTAH Jackson.
[2024-07-26] VITALS (58 sets, daily range): BP systolic 64–127; BP diastolic 29–84; PULSE 2–76
[2024-07-26] MEDS: LASIX 20 MG IV
[2024-07-26 00:45] LABS: B.E. -13.5 mmol/L; O2 Saturation % 98.3 % (94-98); PCO2 44 mmHg (32-35); PO2 97 mmHg (83-108)
[2024-07-26 00:47] LABS: pH 7.14 (7.35-7.45)
[2024-07-26] MEDS: NOVOLOG FLEXPEN-LOW RESISTANCE SC (01:08)
--- NOTE | 2024-07-26 01:12 | PTCARENOTE ---
Pt received to IMU after rapid response. Pt lethargic, obtunded on arrival. Restless. BIPAP on 1515L. Grunting, moaning. Not responding to conversation or following commands. VSS on arrival. POX 95%. SR on CM rate 70's. BP currently 81/57 MAP 63.
Tachypneic, shallow, TEIXEIRA, diminished, shallow, rhonchi throughout. Pt constantly attempting to remove BIPAP mask with right hand. Savanna JARRETT TT'd order entered for right wrist soft limb restraint with all 4 side rails up. Stat order for Lasix
IV ordered and given. Order entered for duarte catheter and placed. 100mls straw cloudy sediment urine output so far. Rest of assessment as documented. Will continue to monitor.
[2024-07-26] MEDS: SODIUM BICARBONATE 50 MEQ IV (01:56)
[2024-07-26] MEDS: LEVOPHED 250 IV (01:56)
[2024-07-26] MEDS: FLUSH (NSS) 3 FLUSH IV (01:57)
--- NOTE | 2024-07-26 02:08 | PTCARENOTE ---
BP 70's/40's. Savanna Ulloa ANATOMY TEACHER TT'd and made aware. Bicarb IV and Levophed gtt ordered at 2mcq/min through right midine. Bicarb given and Levo gtt initiated. Will continue to monitor.
--- NOTE | 2024-07-26 02:32 | PTCARENOTE ---
Rectal temp 95.0. Savanna JARRETT TT'd and made aware. Order entered for warming blanket. Meanwhile warm blankets applied. Will continue to monitor.
--- NOTE | 2024-07-26 03:16 | W.PN.UPDATE ---
Update Note
Progress Note Update
Received patient earlier this evening from [facility] as rapid response due to hypoxic resp failure (tachypnea with coarse breath sounds) NRB with NC for 100% oxygen applied. Lasix 20 mg IV x1 given. Transferred to IMU, Villatoro catheter inserted (about 100
mls urine returned), ABG resulted pH 7.14, PCO2 44, PO2 97, HCO3 15.4. 1 amp HCO3 IV followed by Sterile water with 150 meq HCO3 @60ml/hr. Low dose Levophed for BP support. Will recheck ABG in am. Pt is aspiration risk for po medications NPO for
now. Mild hypothermia will add warming blanket.
[2024-07-26] MEDS: SODIUM BICARBONATE 1150 MEQ IV (04:07)
[2024-07-26 04:44] LABS: Hematocrit 33.8 % (37.0-47.0); Hemoglobin 10.3 g/dL (12.0-16.0); Mean Corp Hgb Conc. 30.5 g/dL (33.0-37.0); Mean Corpuscular Hgb 26.9 pg (27.0-31.0); Mean Corpuscular Volume 88.3 fL (81.0-99.0); Mean Platelet Volume 10.2 fL (7.4-10.4); Platelet Count 70 10^3/uL (130-400); Red Blood Cell Count 3.83 10^6/uL (4.20-5.40); Red Cell Dist. Width 18.2 % (11.5-14.5); White Blood Cell Count 20.9 10^3/uL (4.8-10.8)
[2024-07-26 04:53] LABS: Blood Urea Nitrogen 61 mg/dl (7-17); Calcium 10.5 mg/dl (8.4-10.2); Carbon Dioxide 21 mmol/L (22-30); Chloride 107 mmol/L (98-107); Estimated Creatinine Clearance 18 ml/min; Glucose 142 mg/dl (70-99); Magnesium 2.1 mg/dl (1.6-2.3); Potassium 5.5 mmol/L (3.5-5.1); Sodium 134 mmol/L (135-145); Uric Acid 10.4 mg/dl (2.5-6.2); eGFR 15.77
[2024-07-26 05:03] LABS: LDH 1029 U/L (120-246)
--- NOTE | 2024-07-26 05:14 | PTCARENOTE ---
Warming blanket placed with rectal probe. Rectal temp 94.7. Levo gtt currently infusing at 6mcq/min for SBP 88 map 48. Pt totally unresponsive. Right soft limb wrist restraint removed. BiPAP continues at 15/5/15L pox 97%. AM labs obtained and sent.
ABG obtained and sent. Will continue to monitor.
[2024-07-26 05:22] LABS: B.E. -13.2 mmol/L; HCO3 17.4 mmol/L (21-28); O2 Saturation % 98.6 % (94-98); PCO2 63 mmHg (32-35); PO2 95 mmHg (83-108)
[2024-07-26 05:25] LABS: pH 7.05 (7.35-7.45)
[2024-07-26] MEDS: NOVOLOG FLEXPEN-LOW RESISTANCE 1 UNITS SC (05:36)
[2024-07-26 05:46] LABS: Glucose - Point of Care 173 mg/dl (70-99)
--- NOTE | 2024-07-26 06:27 | PTCARENOTE ---
pH 7.05. RT adjusted BIPAP currently at 18/5/12L.
--- NOTE | 2024-07-26 08:49 | W.PN.HOSP.TC ---
Today's Communication/Plan
-
pursue GIP hospice
Assessment / Plan
Assessment / Plan
Echo: Normal left ventricular size and function. Normal regional wall motion. Mild concentric left ventricular hypertrophy. LV ejection fraction is 55-60% by visual assessment. Stage II diastolic dysfunction suggestive of abnormal relaxation and
increased filling pressures. Thickened mitral valve leaflets. Mitral annular calcification. Mild mitral stenosis. Peak/mean gradients across the mitral valve are 9/4 mmHg. There is at least mild mitral regurgitation which may have been
underestimated due to mitral annular calcification. Indexed LA volume is within normal range (15-34 mL/m2).
Trileaflet aortic valve. Thickened and calcified aortic valve with restricted leaflet motion. Moderate aortic stenosis. Peak/mean gradients across the aortic valve are 31/16 mmHg. Using an LVOT diameter of 2.0 cm, the aortic valve by the Continuity
equation is calculated at 1.0 cm2. Trace aortic regurgitation. Tricuspid valve opens normally. Moderate tricuspid regurgitation. Estimated pulmonary artery pressure of 64 mmHg. Assuming a right atrial pressure of 8 mmHg. Mildly dilated right atrium.
Enlarged right ventricular size. Normal right ventricular systolic function.
Since echocardiogram 04/10/2023, there is little change. There may be mild mitral stenosis and PA systolic pressure is increased slightly from 43 mmHg to 64 mmHg.
Assessment:
Acute hypoxic/hypercapnic respiratory failure on BiPAP
pre-renal MAURO on CKD3a:
- h/o renal transplant, cont Cellcept/Prograf. tacrolimus trough level 7.6 on 07/18
- Cr 2.9 today despite IVF; likely rising from TLS
- Bladder scans
- Nephrology following
L lower neck and upper chest wall mass with associated DVT:
-ideally we would check a CT chest and neck with IV contrast. Unfortunately the risk at this moment is too high with acute kidney injury in the setting of a renal transplant.
-MRI considered but patient has a metallic stapes implant from the 70s which is not MRI compatible.
-Non-contrast CT showed Large region of confluent lymphadenopathy in the left axilla measuring approximately 17.7 x 7.4 x 8.0 cm in size. Lymphadenopathy in the left supraclavicular region with the largest lymph node conglomeration measuring 3.8 x
2.9 cm. Lymphadenopathy to a lesser degree in the right supraclavicular region. Bulky lymphadenopathy in the mediastinum and bilateral hilar regions. Inflammatory fat stranding throughout the left breast with overlying skin thickening.
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
-continue Eliquis 5mg BID
Tumor Lysis syndrome
- elevated LDH, Uric acid
- allopurinol
- likely contributing to worsening renal failure
Generalized weakness
- in setting of stage 4 small cell cancer
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
- voltage-gated calcium channel type P/Q ab pending
- options include IVIG vs Plasmapheresis. Mestinon may help. Overall treating underlying cancer is paramount if able. 3-4 DAP also being ordered by pharmacy.
Hyponatremia:
-likely due to hypotension and possibly a component of SIADH due to likely malignancy
-Na and Cr improved with IVF
-renal following
-Nephrology following
Elevated trop likely Non-ischemic myocardial injury
Hx of CAD
-denies CP
-ECG (read by me): NSR @ 70, R-axis dev, nl intervals, no acute ST/TW changes
-Trop 0.995 peak
-cardiology following
-continue ASA/Statin
-Echo: as above
Metabolic Encephalopathy in setting of UTI
- TME resolved
- Culture with pansensitive E. Coli. completed 7 day Rocephin course.
Ambulatory dysfunction with frequent falls: PT/OT. SNF recommended
DM2 with diabetic nephropathy and neuropathy: cont Lantus/SSI/accu- checks/diabetic diet. Cont Neurontin.
Chronic HFpEF
Chronic back pain, chronic opioid use with dependence: cont oxycodone
Essential hypertension: continue Atenolol/Norvasc. ARB on hold with MAURO.
Iron deficiency anemia: continue Ferrous sulfate
Hyperlipidemia: continue Zetia/statin
Obesity due to excess calories
Peripheral arterial disease: continue ASA/statin
Acute thrombocytopenia
- monitor counts, 73 to 61
- Hematology following
- HIT panel
Stage 3 gluteal cleft pressure injury, POA
Stage 1 bilateral heels pressure injury, POA
- continue wound care
DVT ppx: Eliquis
Code: Full
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 Hospice
service/CM/Agricultural Commodities Grader and consultants notified.
Anticipated Discharge: 24 - 48 hours
Subjective/Interval History
-
Date of Service: July 26, 2024
overnight events reviewed; developed mixed respiratory failure and transferred to IMU on BiPAP
more lethargic this morning, more frail and weak
reports discomfort, SOB
Cr increasing
Objective Data
-
Labs:
Laboratory Results
07/25/24 07/26/24 07/26/24
23:21 00:31 04:21
WBC 18.5 H 20.9 H
Hgb 10.6 L 10.3 L
Hct 34.6 L 33.8 L
Plt Count 73 L 70 L
HCO3 15.0 L*
Sodium 133 L 134 L
Potassium 5.5 H 5.5 H
Chloride 110 H 107
Carbon Dioxide 15 L 21 L
BUN 58 H 61 H
Creatinine 2.8 H 2.9 H
Glucose 137 H 142 H
Calcium 10.4 H 10.5 H
07/26/24
05:12
WBC
Hgb
Hct
Plt Count
HCO3 17.4 L
Sodium
Potassium
Chloride
Carbon Dioxide
BUN
Creatinine
Glucose
Calcium
Vital Signs:
Vital Signs
Temp Pulse Resp BP Pulse Ox
95.8 F L 66 18 103/31 98
07/26/24 07:00 07/26/24 06:15 07/26/24 06:15 07/26/24 06:10 07/26/24 06:15
I&O
07/25/24 07/26/24 07/27/24
06:59 06:59 06:59
Intake Total 520 / 520 240 / 240
Output Total 200 / 200 75 / 75
Balance 320 / 320 165 / 165
Physical Exam
-
General: Respiratory Distress (on BiPAP)
HEENT: Normocephalic and Atraumatic
Respiratory: Crackles and Decreased Breath Sounds
Cardiac: Regular Rhythm and S1/S2
Neuro: Awake
Psych: Calm
Data Reviewed
-
Total Time Spent with Patient (in minutes): 44
Labs: Labs Reviewed by me
[2024-07-26] MEDS: ELIQUIS PO (08:56)
[2024-07-26] MEDS: ASPIR LOW (ENTERIC COATED) PO (08:56)
[2024-07-26] MEDS: FEOSOL PO (08:56)
[2024-07-26] MEDS: MESTINON PO (08:57)
[2024-07-26] MEDS: MUCINEX PO (09:00)
[2024-07-26] MEDS: PROGRAF PO (09:00)
[2024-07-26] MEDS: VISBIOME PO (09:00)
[2024-07-26] MEDS: ZETIA PO (09:00)
[2024-07-26] MEDS: ZYLOPRIM PO (09:00)
[2024-07-26] MEDS: NEURONTIN PO (09:00)
[2024-07-26] MEDS: MYFORTIC DELAYED REL. PO (09:00)
--- NOTE | 2024-07-26 09:00 | CM ---
Addendum entered by No Jackson RN 07/26/24 16:43:
Notified by Hospice patient will stay here in [facility].
Original Note:
Patient with Dx Acute hypoxic/hypercapnic respiratory failure, L lower neck and upper chest wall mass with associated DVT. O2/BiPAP. Intermittently unresponsive/awake & lethargic.
CM Consult: Hospice
Spoke with Hari, he is familiar with hospice but no personal experience.
Hospice philosophy & benefits explained.
Son Abe from [place] will come in with 10-11am to meet with hospice nurse.
He is aware that patient has been unresponsive.
Offered corporate staff accountant and they had asked for restaurant associate for [facility] 2 days ago - informed him will make request again.
Spoke with Tadeo from corporate staff accountant office; requested restaurant associate be contacted and asked to see patient today for [facility].
Messages with [facility], nurse Maki & Dr Puente; per nurse patient now more awake, mostly incoherent and going in and out of responsiveness.
Plan follow up after seen by [facility].
[2024-07-26] MEDS: ATIVAN 1 MG IV ×2 (09:08→11:49)
[2024-07-26] MEDS: DESENEX/MITRAZOL/ZEASORB 1 APPLIC TOPICAL (09:24)
[2024-07-26] MEDS: LANTUS 0.13 UNITS SC (09:56)
--- NOTE | 2024-07-26 10:41 | HOSPNOTE ---
Hospice referral received. Spoke to spouse Hari who is in agreement with inpatient hospcie. He and his son are bedside. Hospice Nurse Cristal will arrive at 1115 am to answer any of their questions and obtain consents. CM, Attending and Admissions
updated. Also requested a bed on 2 north.
[2024-07-26] MEDS: MORPHINE SULFATE 1 MG IV (11:34)
[2024-07-26] MEDS: MORPHINE SULFATE 2 MG IV (12:01)
--- NOTE | 2024-07-26 12:01 | CHAP ---
[facility] in [place] anointed Milagros and gave her a Final Omega. Exact time uncertain.
== END 2024-07-26 12:03 | disposition hospice, inpatient (51) | DRG 987 ==
LOC: IMU 14:37
PROVIDERS: Internal Medicine; Nurse Practitioner Acute Care; Nurse Practitioner Family; Physician Assistant; Radiology Vascular & Interventional Radiology; Registered Nurse; Specialist; ADMITTING PHYSICIAN Hospitalist; ATTENDING PHYSICIAN Internal Medicine; CONSULT PHYSICIAN Internal Medicine Cardiovascular Disease; CONSULT PHYSICIAN Internal Medicine Hematology & Oncology; CONSULT PHYSICIAN Psychiatry & Neurology Clinical Neurophysiology; CONSULT PHYSICIAN Specialist; EMERGENCY PHYSICIAN Emergency Medicine; FAMILY PHYSICIAN Family Medicine
PROC: 07B63ZX Excision of Left Axillary Lymphatic, Percutaneous Approach, Diagnostic (ICD-10-PCS; 2024-07-22)
PROC: 5A09357 Assistance with Respiratory Ventilation, Less than 24 Consecutive Hours, Continuous Positive Airway Pressure (ICD-10-PCS; 2024-07-26)
DX: N17.9 Acute kidney failure, unspecified (principal); G93.41 Metabolic encephalopathy; L89.153 Pressure ulcer of sacral region, stage 3; J96.01 Acute respiratory failure with hypoxia; J96.02 Acute respiratory failure with hypercapnia; T86.19 Other complication of kidney transplant; I82.622 Acute embolism and thrombosis of deep veins of left upper extremity; C34.90 Malignant neoplasm of unspecified part of unspecified bronchus or lung; C77.3 Secondary and unspecified malignant neoplasm of axilla and upper limb lymph nodes; G70.80 Lambert-Eaton syndrome, unspecified; E22.2 Syndrome of inappropriate secretion of antidiuretic hormone; I5A Non-ischemic myocardial injury (non-traumatic); N39.0 Urinary tract infection, site not specified; I50.32 Chronic diastolic (congestive) heart failure; I13.0 Hypertensive heart and chronic kidney disease with heart failure and stage 1 through stage 4 chronic kidney disease, or unspecified chronic kidney disease; I82.B12 Acute embolism and thrombosis of left subclavian vein; Z94.0 Kidney transplant status; D84.821 Immunodeficiency due to drugs; F03.93 Unspecified dementia, unspecified severity, with mood disturbance; Y83.0 Surgical operation with transplant of whole organ as the cause of abnormal reaction of the patient, or of later complication, without mention of misadventure at the time of the procedure; N18.32 Chronic kidney disease, stage 3b; E88.3 Tumor lysis syndrome; I25.10 Atherosclerotic heart disease of native coronary artery without angina pectoris; R29.6 Repeated falls; E11.42 Type 2 diabetes mellitus with diabetic polyneuropathy; E11.43 Type 2 diabetes mellitus with diabetic autonomic (poly)neuropathy; E11.22 Type 2 diabetes mellitus with diabetic chronic kidney disease; E11.36 Type 2 diabetes mellitus with diabetic cataract; E11.51 Type 2 diabetes mellitus with diabetic peripheral angiopathy without gangrene; G89.29 Other chronic pain; D63.1 Anemia in chronic kidney disease; E66.09 Other obesity due to excess calories; Z68.39 Body mass index [BMI] 39.0-39.9, adult; D69.59 Other secondary thrombocytopenia; L89.621 Pressure ulcer of left heel, stage 1; L89.611 Pressure ulcer of right heel, stage 1; I34.81 Nonrheumatic mitral (valve) annulus calcification; I35.8 Other nonrheumatic aortic valve disorders; I35.0 Nonrheumatic aortic (valve) stenosis; I07.1 Rheumatic tricuspid insufficiency; E78.00 Pure hypercholesterolemia, unspecified; Z87.01 Personal history of pneumonia (recurrent); Z88.0 Allergy status to penicillin; Z88.1 Allergy status to other antibiotic agents; Z79.82 Long term (current) use of aspirin; Z95.5 Presence of coronary angioplasty implant and graft; Z79.4 Long term (current) use of insulin; Z79.899 Other long term (current) drug therapy; Z79.621 Long term (current) use of calcineurin inhibitor; E21.3 Hyperparathyroidism, unspecified; E86.0 Dehydration; F32.A Depression, unspecified; G47.33 Obstructive sleep apnea (adult) (pediatric); I27.20 Pulmonary hypertension, unspecified; I48.91 Unspecified atrial fibrillation; K21.9 Gastro-esophageal reflux disease without esophagitis; K76.0 Fatty (change of) liver, not elsewhere classified; K31.84 Gastroparesis
CPT/HCPCS: 88305; 36600; 38505; 70450; 70490; 71045; 71046; 71250; 76776; 76942; 80048; 80053; 80197; 81003; 81015; 82550; 82570; 82784; 82805; 82962; 83036; 83516; 83519; 83521; 83605; 83615; 83735; 83880; 83930; 83935; 83970; 84100; 84155; 84165; 84300; 84443; 84484; 84550; 85025; 85027; 85379; 85384; 85610; 85652; 85730; 86022; 86140; 86334; 86706; 86803; 87077; 87086; 87186; 87340; 87502; 87811; 88333; 88341; 88342; 93005; 93306; 93971; 94660; 96365; 96375; 97110; 97112; 97163; 97167; 97530; 97535; 99152; 99153; 99285; J2783

== ENCOUNTER 2024-07-26 12:04 | Inpatient (IN) | payer OTHER, SELFPAY ==
--- NOTE | 2024-07-26 12:14 | ADM.HSP ---
Admission - Hospice
History of Present Illness
83 y/o F admitted at [facility] 07/18 to 07/26 with finding of LUE DVT and Left axillary LN biopsied and showing stage 4 small cell cancer. Course complicated by UTI, Tumor lysis syndrome with MAURO, Eaton-Lambert syndrome with progressive fatigue
resulting in acute hypercapnic/hypoxic respiratory failure. Family opted for GIP level hospice 07/26.
Reason for Hospice Admission
progressive respiratory failure, TLS, eaton-lambert syndrome
Review of Systems
Unable to obtain full review of systems at this time due to: Acuity
Physical Exam
General: Respiratory Distress
Respiratory: Crackles and Decreased Breath Sounds
Cardiology: Regular Rhythm and S1/S2
GI: Soft
Neuro: Awake and Other (lethargic)
Psych: Calm
Assessment/Medication Plan
Acute hypoxic/hypercapnic respiratory failure on BiPAP
pre-renal MAURO on CKD3a:
h/o renal transplant on immunosuppression
L lower neck and upper chest wall mass with associated DVT
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
Tumor Lysis syndrome
Generalized weakness with Lambert-Eaton syndrome
Hyponatremia due to hypotension and possibly a component of SIADH due to likely malignancy
Elevated trop likely Non-ischemic myocardial injury
Hx of CAD
Metabolic Encephalopathy in setting of UTI
Ambulatory dysfunction with frequent falls
DM2 with diabetic nephropathy and neuropathy
Chronic HFpEF
Chronic back pain, chronic opioid use with dependence
Essential hypertension
Iron deficiency anemia
Hyperlipidemia
Obesity due to excess calories
Peripheral arterial disease
Acute thrombocytopenia
Stage 3 gluteal cleft pressure injury, POA
Stage 1 bilateral heels pressure injury, POA
Plan: Maximize comfort on GIP Hospice level. D/W Family.
Data Reviewed
Labs: Labs Reviewed by me
--- NOTE | 2024-07-26 13:30 | W.PN.DEATH ---
Pronouncement of
-
Called to see patient to pronounce.
No spontaneous heart tones or respirations noted.
Patient not responsive to verbal stimuli.
Patient is pronounced .
Time of : 13:27
Date of : 07/26/24
Cause of : Small cell lung cancer
Acute hypercapnic respiratory failure
Tumor lysis syndrome
Lambert-Eaton syndrome
Family Notified: Yes
--- NOTE | 2024-07-26 13:42 | PTCARENOTE ---
Pt chart changed to in-patient hospice; Family in room; Morphine drip bag received and attempted to hang bag however Pt ceased breathing. Heart rate checked with rate ~ 20's. Family made aware and left room to give family time to greave.
Physician contacted when unable to auscultate heart - Pt @ 1327
--- NOTE | 2024-07-26 15:18 | CHAP ---
Visited Milagros at 9:35. She was sleeping, non-responsive, no family present at the time. JENISE Rebolledo had requested [facility] for her, per family wish. I contacted [facility], and Fr Pope agreed to come within an hour. Meanwhile, I prayed
with Milagros and brought a prayer blanket for her. Fr. Pope anointed Milagros at approximately 10:45. I returned at 1:30, shortly after Milagros had . Spoke with Abe, and invited the family members present to share thoughts
and memories. We then gathered around the bed and offered prayers entrusting Milagros to God, thanking Him for her life and love, and asking peace for all.
--- NOTE | 2024-07-26 16:46 | CM ---
Patient with Dx Acute hypoxic/hypercapnic respiratory failure, L lower neck and upper chest wall mass with associated DVT. Intermittently unresponsive/awake & lethargic.
CM Consult: Hospice
Spoke with Hari, he is familiar with hospice but no personal experience.
Hospice philosophy & benefits explained.
Son Abe from [place] will come in with 10-11am to meet with hospice nurse.
He is aware that patient has been unresponsive.
Offered fixed wing aircraft flight engineer and they had asked for caustic room operator for [facility] 2 days ago - informed him will make request again.
Spoke with Tadeo from fixed wing aircraft flight engineer office; requested caustic room operator be contacted and asked to see patient today for [facility].
Messages with [facility], nurse Glynn & Dr Puente; per nurse patient now more awake, mostly incoherent and going in and out of responsiveness.
Patient seen by Hospice.
Notified by community manager that patient .
== END 2024-07-26 13:27 | disposition expired | DRG 951 ==
LOC: IMU 12:04
PROVIDERS: ADMITTING PHYSICIAN Internal Medicine
DX: Z51.5 Encounter for palliative care (principal); J96.02 Acute respiratory failure with hypercapnia; J96.01 Acute respiratory failure with hypoxia; E88.3 Tumor lysis syndrome; G93.41 Metabolic encephalopathy; G70.80 Lambert-Eaton syndrome, unspecified; T86.19 Other complication of kidney transplant; N17.9 Acute kidney failure, unspecified; E87.1 Hypo-osmolality and hyponatremia; I5A Non-ischemic myocardial injury (non-traumatic); C34.90 Malignant neoplasm of unspecified part of unspecified bronchus or lung; I82.622 Acute embolism and thrombosis of deep veins of left upper extremity; N39.0 Urinary tract infection, site not specified; Y83.0 Surgical operation with transplant of whole organ as the cause of abnormal reaction of the patient, or of later complication, without mention of misadventure at the time of the procedure; I12.9 Hypertensive chronic kidney disease with stage 1 through stage 4 chronic kidney disease, or unspecified chronic kidney disease; E11.22 Type 2 diabetes mellitus with diabetic chronic kidney disease; N18.30 Chronic kidney disease, stage 3 unspecified; I25.10 Atherosclerotic heart disease of native coronary artery without angina pectoris; E11.40 Type 2 diabetes mellitus with diabetic neuropathy, unspecified; D50.9 Iron deficiency anemia, unspecified; E78.5 Hyperlipidemia, unspecified; E66.09 Other obesity due to excess calories; E11.51 Type 2 diabetes mellitus with diabetic peripheral angiopathy without gangrene; G89.29 Other chronic pain